=== PATIENT | female | born 1935 | race Hispanic/Latino ===

== ENCOUNTER 2017-07-02 15:42 | Inpatient (IN) | payer MEDICARE, OTHER ==
[2017-07-02 15:55] VITALS: BMI 47.7
[2017-07-02] MEDS ORDERED: Clindamycin 300 MG in Sodium Chloride 0.9% 50 ML IVPB STA (16:18)
--- NOTE | 2017-07-02 16:24 | ED PDOC ---
Arrival/HPI - General Chief Complaint: Shortness Of Breath Time Seen by Provider: 07/02/17 15:46 - History of Present Illness Narrative History of Present Illness (Text): 07/02/17 16:21 Patient is an 82 y/o F with AV replacement on coumadin, htn, ?chf on lasix, presenting with shortness of breath and leg swelling. Patient reports that she could not reach her PMD's office so came to ED. She reports that her L leg got red over the last 2 days PMD: Dr. Braswell Past Medical History - Infectious Disease Hx of Infectious Diseases: None - Reproductive Menopause: No - Past Medical History Past Medical History: Non-Contributing - Cardiac Hx Hypertension: Yes - HEENT Hx HEENT Disorder: No - Endocrine/Metabolic Hx Hypothyroidism: Yes - Integumentary Hx Dermatological Disorder: Yes Other/Comment: rash to left foot. - Gastrointestinal Other/Comment: IBS - Psychiatric Hx Substance Use: No - Surgical History Hx Cholecystectomy: Yes Hx Valve Replacement: Yes (Aortic) - Anesthesia Hx Anesthesia: Yes Hx Anesthesia Reactions: No Hx Malignant Hyperthermia: No Family/Social History Family/Social History: No Known Family HX Smoking Status: Never Smoked Hx Alcohol Use: No Hx Substance Use: No Allergies/Home Meds Allergies/Adverse Reactions: Allergies No Known Allergies Allergy (Verified 02/21/16 20:52) Home Medications: Home Meds Medication Instructions Recorded Confirmed Aspirin [Aspirin Chewable] 81 mg PO DAILY 06/23/15 07/02/17 Furosemide [Lasix] 40 mg PO DAILY 06/23/15 07/02/17 Levothyroxine [Synthroid] 0.112 mg PO DAILY 06/23/15 07/02/17 Metoprolol Tartrate [Lopressor] 50 mg PO DAILY 07/02/17 07/02/17 [place]-3 Fatty Acids/Fish Oil [Fish 1,000 mg PO DAILY 07/02/17 07/02/17 Oil 1,000 mg Capsule] Potassium Chloride [K-Dur 20 mEq 20 meq PO DAILY 07/02/17 07/02/17 ER Tab] Review of Systems - Physician Review All systems were reviewed & negative as marked: Yes - Review of Systems Constitutional: Fatigue Respiratory: SOB. absent: Cough, Sputum, Wheezing Cardiovascular: Edema. absent: Chest Pain, Palpitations, Calf Pain Gastrointestinal: absent: Abdominal Pain, Constipation, Diarrhea, Nausea, Vomiting Genitourinary Female: absent: Dysuria Musculoskeletal: Other (redness) Neurological: absent: Headache Physical Exam Vital Signs Temp Pulse Resp BP Pulse Ox 07/02/17 18:06 122/71 07/02/17 16:00 23 97 07/02/17 15:55 98.1 F 52 L 12 97 Temperature: Afebrile Blood Pressure: Normal Pulse: Regular Respiratory Rate: Normal Appearance: Positive for: Well-Appearing, Non-Toxic, Comfortable Pain Distress: None Mental Status: Positive for: Alert and Oriented X 3 - Systems Exam Head: Present: Atraumatic, Normocephalic Pupils: Present: PERRL Extroacular Muscles: Present: EOMI Conjunctiva: Present: Normal Mouth: Present: Moist Mucous Membranes Neck: Present: Normal Range of Motion Respiratory/Chest: Present: Clear to Auscultation, Good Air Exchange. No: Respiratory Distress Cardiovascular: Present: Irregular Rhythm Abdomen: No: Tenderness, Distention Back: Present: Normal Inspection Upper Extremity: Present: Normal Inspection Lower Extremity: Present: Other (redness and erythema to LLE extending up towards the knee. 2+pitting edema b/l) Neurological: Present: GCS=15, CN II-XII Intact Psychiatric: Present: Alert, Oriented x 3 Medical Decision Making ED Course and Treatment: 07/02/17 16:26 Patient has edema and L leg cellulitis. Cellulitis is extensive and limb threatening. Will need IV antibiotics --ekg --cxray --labs --iv antibiotics EKG shows irregularly irregular rhythm at 54bpm with LAD and RBBB. ?new onset afib 07/02/17 16:31 07/02/17 17:20 BNP elevated and cxray shows "Stable cardiomegaly. No pulmonary vascular derangement. No acute infiltrate although linear atelectasis is seen in the right base." Patient has lower extremity edema. Lasix and aspirin ordered for chf. Last echo in 2016 with unknown results. Will need admission for chf requiring IV lasix and cardiac evaluation due to worsening sob and dyspnea, new onset afib (already on coumadin) and limb threatening cellulitis with elevated wbc requiring IV antibiotics - Lab Interpretations Lab Results: 07/02/17 16:45 07/02/17 16:45 Lab Results 07/02/17 16:45: Sodium 142, Potassium 4.6, Chloride 108 H, Carbon Dioxide 25, Anion Gap 13, BUN 39 H, Creatinine 1.4 H, Est GFR ( Amer) 43, Est GFR ( Non-Af Amer) 36, Random Glucose 181 H, Calcium 9.6, Phosphorus 4.0, Magnesium 2.1, Total Bilirubin 2.8 H, AST 81 H, ALT 143 H, Alkaline Phosphatase 111, Total Creatine Kinase 38, Troponin I 0.06 D, NT-Pro-B Natriuret Pep 89153 H, Total Protein 5.7 L, Albumin 3.2, Globulin 2.5, Albumin/Globulin Ratio 1.3 07/02/17 16:45: PT 17.1 H, INR 1.55 H, APTT 24.3 L 07/02/17 16:45: WBC 16.6 H D, RBC 3.63, Hgb 11.9 L, Hct 37.6, MCV 103.6, MCH 32.8, MCHC 31.6, RDW 17.1 H, Plt Count 97 L, MPV 11.9 H, Gran % 87.4 H, Lymph % (Auto) 5.5 L, [place] % (Auto) 6.9 H, Eos % (Auto) 0.1 L, Baso % (Auto) 0.1, Gran # 14.46 H, Lymph # 0.9 L, [place] # 1.1 H, Eos # 0.0, Baso # 0.02 - RAD Interpretation Radiology Orders: 07/02/17 16:14 CHEST PORTABLE [RAD] Stat - Medication Orders Current Medication Orders: Discontinued Medications Aspirin (Aspirin Chewable) 324 mg PO STAT STA Stop: 07/02/17 17:18 Last Admin: 07/02/17 18:06 Dose: 324 mg Furosemide (Lasix) 40 mg IVP STAT STA Stop: 07/02/17 17:18 Last Admin: 07/02/17 18:06 Dose: 40 mg MAR Blood Pressure Document 07/02/17 18:06 (Rec: 07/02/17 18:06 [id number]) Blood Pressure Blood Pressure (100/60-150/90) 122/71 IVP Administration Document 07/02/17 18:06 (Rec: 07/02/17 18:06 [id number]) Charges for Administration # of IVP Administrations 1 Clindamycin Phosphate 300 mg/ (Sodium Chloride) 52 mls @ 104 mls/hr IVPB STAT STA PRN Reason: Protocol Stop: 07/02/17 16:47 Last Admin: 07/02/17 16:20 Dose: 104 mls/hr eMAR Start Stop Document 07/02/17 16:20 RG (Rec: 07/02/17 17:58 [id number]) Intravenous Solution Start Date 07/02/17 Start Time 16:20 End Date 07/02/17 End time 16:50 Total Infusion Time 30 Disposition/Present on Arrival - Present on Arrival Any Indicators Present on Arrival: No History of DVT/PE: No History of Uncontrolled Diabetes: No Urinary Catheter: No History of Decub. Ulcer: No History Surgical Site Infection Following: None - Disposition Have Diagnosis and Disposition been Completed?: Yes Diagnosis: Cellulitis, Shortness of breath, Atrial fibrillation, Congestive heart failure Disposition: HOSPITALIZED Disposition Time: 16:28 Patient Plan: Admission Patient Problems: Current Active Problems Problem Status Onset Atrial fibrillation Acute Cellulitis Acute Congestive heart failure Acute Shortness of breath Acute Condition: FAIR
[2017-07-02 16:52] LABS: BASO # 0.02 K/mm3 (0.0-2.0); BASO % 0.1 % (0.0-3.0); EOS % 0.1 % (1.5-5.0); GRAN # 14.46 (1.4-6.5); GRAN % 87.4 % (50.0-68.0); HEMATOCRIT 37.6 % (36.0-48.0); LYMPH # 0.9 (1.2-3.4); LYMPH % 5.5 % (22.0-35.0); MEAN CELL VOLUME 103.6 fl (80.0-105.0); MEAN CORPUSCULAR HEMOGLOBIN 32.8 pg (25.0-35.0); MEAN CORPUSCULAR HGB CONC 31.6 g/dl (31.0-37.0); MEAN PLATELET VOLUME 11.9 fl (7.0-11.0); MONO # 1.1 (0.1-0.6); MONO % 6.9 % (1.0-6.0); RED CELL DISTRIBUTION WIDTH 17.1 % (11.5-14.5); WHITE BLOOD COUNT 16.6 10^3/ul (4.5-11.0)
[2017-07-02 17:05] LABS: BILIRUBIN,TOTAL 2.8 mg/dL (0.2-1.3); CALCIUM 9.6 mg/dL (8.4-10.5); MAGNESIUM 2.1 mg/dL (1.7-2.2); POTASSIUM 4.6 mmol/L (3.6-5.0); TOTAL PROTEIN 5.7 g/dL (5.8-8.3)
[2017-07-02 17:09] LABS: INR 1.55 (0.93-1.08); PARTIAL THROMBOPLASTIN TIME 24.3 Seconds (25.1-36.5)
[2017-07-02 17:16] LABS: ALB/GLOB RATIO 1.3 (1.1-1.8)
[2017-07-02 17:17] LABS: TROPONIN I 0.06 ng/mL
--- NOTE | 2017-07-02 17:25 | RAD ---
HISTORY: shortness of breath COMPARISON: Chest radiographs 07/27/2016. FINDINGS: LUNGS: No definite infiltrate appreciated bilaterally although linear atelectasis or fibrosis seen at the right base. PLEURA: No significant pleural effusion identified, no pneumothorax apparent. CARDIOVASCULAR: Cardiomegaly is apparent once again without pulmonary vascular derangement. Sternotomy wires are again noted. Prosthetic cardiac valve again evident as well. OSSEOUS STRUCTURES: No significant abnormalities. VISUALIZED UPPER ABDOMEN: Normal. OTHER FINDINGS: None. IMPRESSION: Stable cardiomegaly. No pulmonary vascular derangement. No acute infiltrate although linear atelectasis is seen in the right base.
[2017-07-03 07:19] LABS: HEMATOCRIT 36.3 % (36.0-48.0); MEAN CELL VOLUME 103.7 fl (80.0-105.0); MEAN CORPUSCULAR HGB CONC 30.9 g/dl (31.0-37.0); MEAN PLATELET VOLUME 12.2 fl (7.0-11.0); RED CELL DISTRIBUTION WIDTH 17.1 % (11.5-14.5); WHITE BLOOD COUNT 11.5 10^3/ul (4.5-11.0)
--- NOTE | 2017-07-03 07:36 | CP.PCM.HP ---
<Marian Lucas - Last Filed: 07/03/17 09:53> History of Present Illness - History of Present Illness History of Present Illness: PGY-[address] Hamilton Admission: Dyspnea Cellulitis Ms Day, 82 F, with PMH HTN, Aortic valve replacement, a-fib NOT ON anticoagulant, htn, ?chf on lasix, presenting with shortness of breath and leg swelling. Pt states that she became more SOB 1 month ago, requiring an inhaler 4 times a day. Then 2 days ago, she felt pain in L leg while walking, and nticed that her leg has gotten red. Patient reports that she could not reach her PMD's office so came to ED. At baseline, pt slept in a recliner. She ambulates from bedroom to bathroom with increased SOB. (+) animal contact - dog. Denies change of meds, dine out, or high salt food Denies animal bites, sick contact, trauma, fall, hiking. Last echo in 2015 with unknown results. Denies F/C, CP, N/V/C/D, dysuria. 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 All NKDA Home med ASA 81, Lopressor 50 QD Lasix 40, K-Dur 20 Er Synthroid 0.112 [place] 3 Inhaler Miralax daily PMD: Dr. Braswell Present on Admission - Present on Admission Any Indicators Present on Admission: No Past Patient History - Infectious Disease Hx of Infectious Diseases: None - Past Social History Smoking Status: Never Smoked - CARDIAC Hx Cardia Arrhythmia: Yes Hx Congestive Heart Failure: Yes - PULMONARY Hx Respiratory Disorders: No - NEUROLOGICAL Hx Neurological Disorder: No - HEENT Hx HEENT Problems: No - RENAL Hx Chronic Kidney Disease: No - ENDOCRINE/METABOLIC Hx Endocrine Disorders: No - HEMATOLOGICAL/ONCOLOGICAL Hx Blood Disorders: No - INTEGUMENTARY Hx Dermatological Problems: Yes - MUSCULOSKELETAL/RHEUMATOLOGICAL Hx Musculoskeletal Disorders: No Hx Falls: No - GASTROINTESTINAL Hx Gastrointestinal Disorders: No - GENITOURINARY/GYNECOLOGICAL Hx Genitourinary Disorders: No - PSYCHIATRIC Hx Psychophysiologic Disorder: No Hx Substance Use: No - SURGICAL HISTORY Hx Valve Replacement: Yes - ANESTHESIA Hx Anesthesia: Yes Hx Anesthesia Reactions: No Hx Malignant Hyperthermia: No Meds Allergies/Adverse Reactions: Allergies Allergy/AdvReac Type Severity Reaction Status Date / Time No Known Allergies Allergy Verified 02/21/16 20:52 Physical Exam - Constitutional Appears: No Acute Distress - Head Exam Head Exam: ATRAUMATIC, NORMAL INSPECTION, NORMOCEPHALIC - Eye Exam Eye Exam: EOMI, Normal appearance, PERRL. absent: Scleral icterus Pupil Exam: NORMAL ACCOMODATION - ENT Exam ENT Exam: Mucous Membranes Moist - Neck Exam Additional comments: No JVD - Respiratory Exam Respiratory Exam: Clear to Auscultation Bilateral, Rales. absent: Rhonchi, Wheezes - Cardiovascular Exam Cardiovascular Exam: REGULAR RHYTHM, +S1, +S2, Systolic Murmur - GI/Abdominal Exam GI & Abdominal Exam: Normal Bowel Sounds, Soft. absent: Distended, Firm, Rigid , Tenderness - Extremities Exam Extremities exam: Positive for: pedal edema. Negative for: calf tenderness, tenderness - Back Exam Back exam: absent: CVA tenderness (L), CVA tenderness (R) - Neurological Exam Neurological exam: Alert, Oriented x3 - Psychiatric Exam Psychiatric exam: Normal Affect, Normal Mood - Skin Skin Exam: Dry, Rash (L Leg/ankle), Warm Results - Vital Signs Recent Vital Signs: Last Vital Signs Temp 97 F L 07/03/17 06:00 Pulse 56 L 07/03/17 06:00 Resp 19 07/03/17 06:00 BP 111/54 L 07/03/17 06:00 Pulse Ox 97 07/03/17 06:00 - Labs Result Diagrams: 07/03/17 06:00 07/03/17 07:00 Labs: Laboratory Results - last 24 hr 07/03/17 06:00 WBC 11.5 H D RBC 3.50 Hgb 11.2 L Hct 36.3 MCV 103.7 MCH 32.0 MCHC 30.9 L RDW 17.1 H Plt Count 85 L MPV 12.2 H Assessment & Plan - Assessment and Plan (Free Text) Plan: Ms Day, 82 F, with PMH HTN, Aortic valve replacement, a-fib NOT ON anticoagulant, htn, ?chf on lasix, presenting with shortness of breath, b/l leg swelling and rash of L leg, likely cellulitis Soft tissue infection R/O osteomyelitis, R/O DVT Leukocytosis 16.6 - ID consult - CRP - Venous Duplex LE b/l - blood culture A-fib - Eliquis 5 BID CHF, systolic, exacerbation - O2 as needed - HOB 30 degree - A1C, TSH - Echocardiogam - Lasix 40 IV daily bilirubinemia with AST/ALT - Asymptomatic - consider abd u/s HTN, Risk CAD - ASA, Lopressor 25 bid Constipation - miralax Hypothyroidism - consider check TSH Discharge planning - PT Consult ID = Dr Hunter Card = Dr Toro FEN = HHD s/r/d/w <Jose Eduardo Hamilton S - Last Filed: 07/03/17 15:28> Results - Vital Signs Recent Vital Signs: Last Vital Signs Temp 96.4 F L 07/03/17 12:00 Pulse 54 L 07/03/17 12:00 Resp 21 07/03/17 12:00 BP 107/68 07/03/17 12:00 Pulse Ox 97 07/03/17 06:00 - Labs Result Diagrams: 07/03/17 06:00 07/03/17 07:00 Labs: Laboratory Results - last 24 hr 07/03/17 07/03/17 07/03/17 06:00 07:00 07:00 WBC 11.5 H D RBC 3.50 Hgb 11.2 L Hct 36.3 MCV 103.7 MCH 32.0 MCHC 30.9 L RDW 17.1 H Plt Count 85 L MPV 12.2 H Sodium 142 Potassium 4.4 Chloride 111 H Carbon Dioxide 24 Anion Gap 11 BUN 43 H Creatinine 1.3 H Est GFR ( Amer) 47 Est GFR (Non-Af Amer) 39 Random Glucose 164 H Hemoglobin A1c Calcium 9.5 Phosphorus 4.1 Magnesium 2.2 Total Bilirubin 2.1 H AST 77 H ALT 143 H Alkaline Phosphatase 112 Troponin I 0.04 D C-React Prot High Sens Total Protein 5.3 L Albumin 2.8 L Globulin 2.4 Albumin/Globulin Ratio 1.2 Thyroxine (T4) TSH 3rd Generation 07/03/17 07/03/17 07:00 08:00 WBC RBC Hgb Hct MCV MCH MCHC RDW Plt Count MPV Sodium Potassium Chloride Carbon Dioxide Anion Gap BUN Creatinine Est GFR ( Amer) Est GFR (Non-Af Amer) Random Glucose Hemoglobin A1c 6.5 Calcium Phosphorus Magnesium Total Bilirubin AST ALT Alkaline Phosphatase Troponin I C-React Prot High Sens > 15.00 H Total Protein Albumin Globulin Albumin/Globulin Ratio Thyroxine (T4) 7.0 TSH 3rd Generation 1.05 Assessment & Plan - Assessment and Plan (Free Text) Plan: Pt was seen and examined. Labs have been reviewed. The not of the claim review medical director has been reviewed. Pt will need IV Abx and will need IV lasix. Cardiology evaluation. Pt with A fib on Eliquis.
[2017-07-03 08:29] LABS: BILIRUBIN,TOTAL 2.1 mg/dL (0.2-1.3); CALCIUM 9.5 mg/dL (8.4-10.5); MAGNESIUM 2.2 mg/dL (1.7-2.2); PHOSPHOROUS 4.1 mg/dL (2.5-4.5); POTASSIUM 4.4 mmol/L (3.6-5.0); TOTAL PROTEIN 5.3 g/dL (5.8-8.3)
[2017-07-03 08:31] LABS: ALB/GLOB RATIO 1.2 (1.1-1.8)
[2017-07-03] MEDS: POLYETHYLENE GLYCOL 3350 17 GM/Dose PACKET PO SCH (09:26)
[2017-07-03] MEDS: Levothyroxine 112 MCG TAB PO SCH (09:27)
[2017-07-03 09:57] LABS: THYROID STIMULATING HORMONE 1.05 mIU/mL (0.46-4.68)
--- NOTE | 2017-07-03 10:35 | CON ---
DATE: 07/03/2017 INDICATIONS: Shortness of breath, edema, cellulitis. HISTORY OF PRESENT ILLNESS: This is an 82-year-old woman with an aortic valve replacement known to me, admitted with several days of shortness of breath, dyspnea on exertion and lower extremity swelling and redness of right lower extremity. She came to the emergency room yesterday, she was admitted. She is found to be in atrial fibrillation with a moderate ventricular response. She is admitted to telemetry. This morning she is comfortable, lying in bed. There is no shortness of breath presently. There was not much edema. Her right leg is cellulitic in appearance. There is no chest pain, orthopnea, PND, syncope, presyncope, lightheadedness, dizziness, vertigo, palpitation, fever, chills, cough, sputum production, hemoptysis, abdominal pain, nausea, vomiting, diarrhea, constipation, or melena. PAST MEDICAL HISTORY: Notable for remote aortic valve replacement, hypertension, obesity, sedentary lifestyle, hypothyroidism, gallbladder surgery, degenerative arthritis. I am not sure if she has had atrial fibrillation in the past. I will review records on this. I believe that it is relatively new. She has not been on anticoagulation. There is no history of rheumatic fever, myocardial infarction, stroke, TIA, diabetes or gout. MEDICATIONS AT THE TIME OF ADMISSION: Include aspirin, Lasix, levothyroxine, metoprolol, potassium chloride, omega-3 fish oil. ALLERGIES: THERE ARE NO MEDICATION ALLERGIES REPORTED. SOCIAL HISTORY: She lives at home. She is not very ambulatory. She does not smoke cigarettes. She does not drink alcohol significantly. FAMILY HISTORY: Noncontributory. REVIEW OF SYSTEMS: A 10-point review of systems is otherwise unremarkable except as noted above. PHYSICAL EXAMINATION: GENERAL: She is an elderly woman, in no acute distress, lying in bed on telemetry. She has an atrial fibrillation with moderate ventricular response. VITAL SIGNS: Pulse is 58 to 49 beats per minute. She is afebrile. Blood pressure 111/54, respirations 19, O2 sat 97-98% on nasal cannula. HEENT: Reveals no neck vein distention, thyromegaly, or carotid bruits. Mucous membranes moist. Conjunctivae pink. NECK: Supple. CHEST: Lung vargas few scattered rhonchi. HEART: Revealed an irregular rhythm. There is a systolic ejection murmur heard along the left sternal border and in aortic space. The PMI is not palpable. ABDOMEN: Obese, soft. Bowel sounds are present. No mass, organomegaly, tenderness, rebound, guarding, CVA tenderness or palpable aortic aneurysm detected. EXTREMITIES: Revealed mild edema, erythema involving the lower half of her right leg. There is no calf tenderness. NEUROLOGIC: She is awake, alert, and oriented. PSYCHIATRIC: Normal as to mood and affect. SKIN: Warm and dry. No rashes or cellulitis. LABORATORY DATA: White count 16,600, repeat 11,500, hemoglobin 11.2, platelet count low at 85,000. PT 17.1, INR 1.55, PTT 24.3. Electrolytes, BUN, creatinine noted. Creatinine 1.4, blood sugar 181, magnesium 2.1. LFTs are mildly abnormal with AST of 81, ALT of 141, bilirubin of 2.8, alkaline phosphatase 111. CK 38. Troponin 0.06 and 0.04. BNP 14,400. EKG demonstrates atrial fibrillation, right bundle-branch block, left anterior hemiblock, nonspecific ST-wave changes. The chest x-ray reveals a portable study. There is stable cardiomegaly. No evidence of congestive heart failure or infiltrate. IMPRESSION: Kaycee Day is an 82-year-old woman, admitted with dyspnea, edema, cellulitis, atrial fibrillation, status post aortic valve replacement remotely. She is on telemetry. She has been cultured. She is getting antibiotics. I will get lower extremity venous Doppler. I would check thyroid function test. Her platelet count is low, which should be evaluated as well. Tentatively, I will start her on Eliquis 5 mg b.i.d. We will check stool for occult blood. Monitor Is and Os. She got dose of IV Lasix. We will continue p.o. Lasix. She can be out of bed. She is having an ID evaluation. We will continue aspirin, metoprolol, which I will reduce to 25 mg b.i.d. and Synthroid. I will follow along with you. I will make additional recommendations based on a clinical course. I will review office records as well. An echocardiogram has been ordered. Vazquez Toro MD [facility]
--- NOTE | 2017-07-03 11:38 | CARD ---
APPROVED REPORT EKG Measurement Heart [id number] <Conclusion> A. Fib., new LAHB RBBB PRWP STTW changes
--- NOTE | 2017-07-03 11:40 | CARD ---
APPROVED REPORT EKG Measurement Heart [id number] <Conclusion> AF RBBB LAHB PRWP STTW changes No change
[2017-07-03] MEDS: Ceftaroline 600 MG in Sodium Chloride 0.9% 100 ML IVPB SCH (15:36)
--- NOTE | 2017-07-03 16:15 | US ---
HISTORY: Leg pain and swelling. Evaluate for DVT PHYSICIAN(S): Lev Billingsley MD. TECHNIQUE: Duplex sonography and color-flow Doppler with graded compression were used to evaluate the deep venous systems of both lower extremities. The exam is limited by edema and body habitus. The tibial veins are not well seen FINDINGS: The visualized deep venous systems of both lower extremities are sonographically normal and compressible. Normal wave forms and augmentation are seen. There is no sonographic evidence for deep venous thrombosis in the visualized segments of both lower extremities. IMPRESSION: No sonographic evidence for deep venous thrombosis in the visualized segments of both lower extremities.
[2017-07-03] MEDS ORDERED: Alum-Mag Hydrox-Simethicone Susp (30 mL) PO ONE (23:18)
--- NOTE | 2017-07-03 23:46 | CP.PCM.PN ---
Subjective - Date & Time of Evaluation Date of Evaluation: 07/03/17 Time of Evaluation: 23:50 - Subjective Subjective: Pt seen for her c/o abdominal pain which started a few mins before I was called. Pt denies any c/o chest pain, SOB,nausea,vomiting or palpitations. She states her abdominal pain is located in the upper abdomen(points to the epigastric region).It does not radiate and is not associated with any other symptoms.It is described as a dull pain.On a scale of 1 to 10 it is a 9. Pt was admitted with Dx of CHF and AFib. Her VS are stable. PMH:HTN,AV replacement,Afib,Hypothyroidism,DJD of spine. Objective - Vital Signs/Intake and Output Vital Signs (last 24 hours): Temp Pulse Resp BP Pulse Ox 97 F L 51 L 20 120/78 97 07/03/17 18:00 07/03/17 18:00 07/03/17 18:00 07/03/17 18:00 07/03/17 06:00 - Medications Medications: Current Medications Apixaban (Eliquis) 5 mg PO BID JILLIAN PRN Reason: Protocol Last Admin: 07/03/17 18:06 Dose: 5 mg Aspirin (Aspirin Chewable) 81 mg PO DAILY [facility] Last Admin: 07/03/17 09:26 Dose: 81 mg Furosemide (Lasix) 40 mg IVP DAILY [facility] Last Admin: 07/03/17 09:40 Dose: Not Given Ceftaroline Fosamil 600 mg/ (Sodium Chloride) 100 mls @ 100 mls/hr IVPB Q12 JILLIAN PRN Reason: Protocol Stop: 07/12/17 13:13 Last Admin: 07/03/17 15:36 Dose: 100 mls/hr Levothyroxine Sodium (Synthroid) 112 mcg PO DAILY JILLIAN Last Admin: 07/03/17 09:27 Dose: 112 mcg Metoprolol Tartrate (Lopressor) 25 mg PO BID [facility] Last Admin: 07/03/17 17:59 Dose: Not Given Polyethylene Glycol (Miralax) 17 gm PO DAILY [facility] Last Admin: 07/03/17 09:26 Dose: 17 gm - Labs Labs: 07/03/17 06:00 07/03/17 07:00 PT 17.1 SECONDS (9.4-12.5) H 07/02/17 16:45 INR 1.55 (0.93-1.08) H 07/02/17 16:45 APTT 24.3 Seconds (25.1-36.5) L 07/02/17 16:45 - Constitutional Appears: No Acute Distress - Head Exam Head Exam: ATRAUMATIC, NORMAL INSPECTION, NORMOCEPHALIC - Eye Exam Eye Exam: PERRL - ENT Exam ENT Exam: Mucous Membranes Moist - Neck Exam Neck Exam: Normal Inspection - Respiratory Exam Respiratory Exam: Clear to Ausculation Bilateral, NORMAL BREATHING PATTERN - Cardiovascular Exam Cardiovascular Exam: Irregular Rhythm - GI/Abdominal Exam GI & Abdominal Exam: Soft, Tenderness (noted in the epigastric region), Normal Bowel Sounds. absent: Distended, Guarding, Rebound - Extremities Exam Extremities Exam: absent: Calf Tenderness Additional comments: There is erythema and tenderness of the L lower leg.Also noted is edema of the L foot. - Neurological Exam Neurological Exam: Alert, Awake, Oriented x3 - Psychiatric Exam Psychiatric exam: Normal Affect - Skin Skin Exam: Dry, Warm Additional comments: Ecchymotic areas noted in the region of the R flank. Skin changes of L lower leg as noted. Assessment and Plan - Assessment and Plan (Free Text) Assessment: Epigastric pain Plan: EKG was done stat.It showed Afib rate of 62/min.RBBB is noted as before.Minimal increase in T wave inversion is noted in leads V2 and V3. Cardiac enzymes ordered. Protonix and Maalox ordered.
[2017-07-04 00:33] LABS: TROPONIN I 0.04 ng/mL
--- NOTE | 2017-07-04 00:34 | CON ---
DATE: 07/03/2017 The patient is in bed. CHIEF COMPLAINT: Left leg erythema times several days. HISTORY OF PRESENT ILLNESS: This is an 82-year-old morbidly obese female with BMI of 47. PAST MEDICAL HISTORY: Significant for congestive heart failure, arrhythmia, hypertension, hyperlipidemia, history of cholecystectomy and valve replacement, who was admitted with diagnosis of new onset of atrial fibrillation, congestive heart failure through the Emergency Room, was seen by Dr. Umu Tate. She voiced that the patient has an aortic valve replacement, on Coumadin, hypertension, congestive heart failure, on Lasix, admitted with shortness of breath and bilateral lower extremity edema and the patient had also with a history of hypothyroidism and past medical history significant for congestive heart failure and hypertension, arrhythmia, hyperlipidemia, hypothyroidism. PAST SURGICAL HISTORY: Significant for cholecystectomy and aortic valve replacement. MEDICATIONS: Include the patient to be on aspirin, furosemide, Synthroid, metoprolol, and Coumadin. ALLERGIES: THE PATIENT HAS NO KNOWN ALLERGIES. PHYSICAL EXAMINATION VITAL SIGNS: The patient's temperature of 98, pulse of 52, respiratory rate of 23, blood pressure is noted and to be 111/50 and pulse oximetry is 97%. HEENT: Unremarkable. NECK: Supple. LUNGS: Decreased breath sounds. HEART: Normal S1, S2. ABDOMEN: Soft, nontender. EXTREMITIES: Examination of left leg reveals significant erythema of the left leg and foot and with edema is improved. No break in his skin since erythema and no discharge. LABORATORY DATA: Reveals a white count of 16,000, hemoglobin of 11, platelets of 97 and the platelets are new and in past she has had normal platelets. Chemistries reveals a BUN of 39, creatinine of 1.4 and in the past she has had creatinine of 0.9 and 1.0. C-reactive protein is 315 and BNP is over 14,000. Review of orders reveals the patient to have blood cultures are pending and the patient was given a dose of clindamycin. ASSESSMENT AND PLAN: This is an 82-year-old female with BMI of 47 and congestive heart failure with morbid obesity, BMI of 47, congestive heart failure, arrhythmia, hypertension, hyperlipidemia, hypothyroidism, admitted with dyspnea and leukocytosis, left foot the erythema with acute kidney injury and new thrombocytopenia. 1. Severe sepsis with left leg cellulitis with acute kidney injury. Creatinine is changed from 0.9-1.4 and the patient is with thrombocytopenia and unable to use the linezolid. We will discontinue the clindamycin. We will use ceftaroline 600 mg IV q. 12 hours and follow the patient clinically and check on the blood cultures and ultrasound, should have vascular workup and arterial Dopplers and venous Dopplers and echocardiogram and we will follow closely with you. She is recommended Podiatric consultation. Nael Hunter MD
[2017-07-04 07:21] LABS: BASO # 0.03 K/mm3 (0.0-2.0); BASO % 0.3 % (0.0-3.0); EOS # 0.1 (0.0-0.7); EOS % 1.1 % (1.5-5.0); GRAN # 8.43 (1.4-6.5); GRAN % 82.8 % (50.0-68.0); HEMATOCRIT 36.6 % (36.0-48.0); LYMPH % 9.3 % (22.0-35.0); MEAN CELL VOLUME 103.1 fl (80.0-105.0); MEAN CORPUSCULAR HEMOGLOBIN 31.8 pg (25.0-35.0); MEAN CORPUSCULAR HGB CONC 30.9 g/dl (31.0-37.0); MEAN PLATELET VOLUME 12.5 fl (7.0-11.0); MONO # 0.7 (0.1-0.6); MONO % 6.5 % (1.0-6.0); RED CELL DISTRIBUTION WIDTH 16.8 % (11.5-14.5); WHITE BLOOD COUNT 10.2 10^3/ul (4.5-11.0)
[2017-07-04 07:32] LABS: INR 2.17 (0.93-1.08)
[2017-07-04 07:33] LABS: TROPONIN I 0.04 ng/mL
[2017-07-04 07:39] LABS: FREE T4 1.53 ng/dL (0.78-2.19)
[2017-07-04 07:53] LABS: THYROID STIMULATING HORMONE 1.21 mIU/mL (0.46-4.68)
[2017-07-04] MEDS: POLYETHYLENE GLYCOL 3350 17 GM/Dose PACKET PO SCH (09:39)
[2017-07-04] MEDS: Levothyroxine 112 MCG TAB PO SCH (09:40)
--- NOTE | 2017-07-04 10:20 | CARD ---
APPROVED REPORT EKG Measurement Heart [id number] <Conclusion> Undetermined rhythm Left axis deviation Right bundle branch block Abnormal ECG
[2017-07-04] MEDS: Ceftaroline 600 MG in Sodium Chloride 0.9% 100 ML IVPB SCH ×2 (11:17→22:34)
--- NOTE | 2017-07-04 11:56 | CARD ---
APPROVED REPORT EXAM: Two-dimensional and M-mode echocardiogram with Doppler and color Doppler. INDICATION AVR/EDEMA/SOB 2D DIMENSIONS Left Atrium (2D)5.2 (1.6-4.0cm)IVSd1.4 (0.7-1.1cm) LVDd4.6 (3.9-5.9cm)PWd1.4 (0.7-1.1cm) LVDs2.8 (2.5-4.0cm)FS (%) 37.7 % LVEF (%)67.9 (>50%) M-Mode DIMENSIONS Aortic Root2.80 (2.2-3.7cm) Aortic Valve AoV Peak Jjxcpzpb884.0cm/sAoV QYT094.0cmAO Peak GR.99mmHg AO Mean GR.55mmHg Mitral Valve MV MIW03iuJ/A ratio0.0MVA (PHT)2.44cm2 TDI E/Lateral E'0.0E/Medial E'0.0 Pulmonary Valve PV Peak Gsbwqpig60.5cm/sPV Peak Grad.4mmHg Tricuspid Valve TR Peak Vkemmcyg088tu/sRAP [id number] Peak Gr.78mmHg [id number] LEFT VENTRICLE The left ventricle is normal size. There is mild concentric left ventricular hypertrophy. The left ventricular function is normal. The left ventricular ejection fraction is within the normal range. There is a flattened septum consistent with right ventricle pressure overload. RIGHT VENTRICLE The right ventricle is mildly dilated. ATRIA The left atrium is severely dilated. The right atrium is severely dilated. AORTIC VALVE There is severe valvular aortic stenosis. There are abnormal prosthetic aortic valve gradients. Bioprosthesis leaflets are thickened and motion is restricted. MITRAL VALVE Mitral annular calcification is moderate. The mitral valve is moderately thickened. Mitral regurgitation is severe. The mitral regurgitant jet is eccentrically directed. TRICUSPID VALVE The tricuspid valve leaflets are thickened , but open well. There is severe tricuspid regurgitation. GREAT VESSELS The aortic root is normal in size. The IVC is normal in size and collapses >50% with inspiration. PERICARDIAL EFFUSION There is no pleural effusion. There is no pericardial effusion. <Conclusion> Severe biatrila enlargement. Mild concentric LVH. Normal LV systolic function. Septal dyskineisis consistent with RV pressure overload. 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 Eccentric severe MR noted. Severe TR.
[2017-07-04] MEDS: Levalbuterol 0.63 MG/3 ML Inhal Soln UD IH SCH ×2 (13:48→20:53)
--- NOTE | 2017-07-04 14:10 | PN ---
DATE: 07/04/2017 SUBJECTIVE: The patient is seen sitting in a chair on telemetry. She is currently comfortable. Her left arm is wrapped in a dressing. She remains in atrial fibrillation. She states that her dyspnea has improved. CURRENT MEDICATIONS: Include aspirin, ceftaroline, Eliquis 5 mg b.i.d., Lasix 40 mg daily, metoprolol 25 g b.i.d., Protonix, Synthroid, and Xopenex. OBJECTIVE: GENERAL: She is an elderly woman, appears comfortable at the present time. VITAL SIGNS: Her blood pressure is 120/60 with a pulse of 56 and atrial fibrillation, respirations are 16. She is afebrile. HEENT: No JVD. CHEST: Bilateral scattered rhonchi. HEART: Systolic murmur is noted at the bases as well as the apex. ABDOMEN: Soft, nontender, protuberant with normoactive bowel sounds. EXTREMITIES: Left arm is wrapped. Mild cellulitic changes in both lower extremities are noted. DIAGNOSTIC DATA: White count is 10.2, hemoglobin and hematocrit 11.3 and 36.6 with platelet count of 89,000. Troponin is negative. LDH is 1076. Echocardiogram is reviewed and shows evidence of aortic stenosis of her bioprosthetic valve. This appears to be severe. LV systolic function appears normal. There is biatrial enlargement with severe mitral regurgitation and severe tricuspid regurgitation. IMPRESSION: 1. Cellulitis, currently receiving antibiotic therapy. 2. 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 3. Severe mitral and tricuspid regurgitation. 4. Recent onset atrial fibrillation. RECOMMENDATIONS: Her current medications will be continued. Once her cellulitis has resolved, discussion will be had with her regarding consideration for any intervention on her stenotic prosthetic valve, possible TAVR procedure can be considered. Resumption of her home bronchodilator therapy is advisable. We will continue to follow and make further recommendations as appropriate. Rajinder Smith MD
[2017-07-04 14:34] LABS: TROPONIN I 0.03 ng/mL
--- NOTE | 2017-07-05 00:27 | PN ---
DATE: 07/04/2017 SUBJECTIVE: Patient is in bed, no acute distress, seen early this morning in room 375. She states she is feeling much better. Her leg is less painful and her shortness of breath is improved. She is much more comfortable. PHYSICAL EXAMINATION: VITAL SIGNS: Temperature is 96.4, blood pressure is 92, heart rate of 63, and respiratory rate of 18. HEENT: Unremarkable. NECK: Supple. LUNGS: Decreased breath sounds. HEART: Normal S1, S2. ABDOMEN: Soft. LABORATORY DATA: Reveals the white count is down to 10,000 and hemoglobin of 11. Coagulation is noted. Chemistries revealed the patient's C-reactive protein is greater than 50, LDH is noted, and BUN of 43 and creatinine of 1.3. Microbiology reveals in the blood cultures, there are no growth. Review of orders revealed the patient to be on Teflaro. ASSESSMENT AND PLAN: This is an 82-year-old female, seen early this morning in room 375, bed 2, with morbid obesity, body mass index of 47, congestive heart failure and arrhythmia, hypertension, hyperlipidemia, hypothyroidism, admitted with dyspnea, leukocytosis, left foot erythema, and acute kidney injury. 1. Severe sepsis with left leg cellulitis and acute kidney injury, which appears to be much improved. Currently, on Teflaro, day number 2. Follow the culture results and clinical response of the patient's leg, which appears to be much improved in this patient with a history of status post aortic valve replacement with evidence of prosthetic stenosis and severe mitral and tricuspid regurgitation and a recent onset of atrial fibrillation. We will follow closely with you. Nael Hunter MD
[2017-07-05] MEDS: Levalbuterol 0.63 MG/3 ML Inhal Soln UD IH SCH ×3 (01:16→14:36)
--- NOTE | 2017-07-05 08:28 | PN ---
DATE: 07/04/2017 SUBJECTIVE: The patient is an 82-year-old, seen and examined, and sitting in chair. The patient is morbidly obese with significant bilateral leg edema and left leg significant erythema. On examination, she is not in any distress. Eating and tolerating. No nausea or vomiting. No diarrhea. On monitor, she is still in AFib. She states her shortness of breath has significantly improved. PHYSICAL EXAMINATION: GENERAL: She is awake, alert, oriented, and communicative. VITAL SIGNS: She is afebrile, pulse 65, respirations 18, and blood pressure 121/60. LUNGS: Bilateral fair airflow, decreased at bases. HEART: S1 and S2 audible. ABDOMEN: Soft, obese, and nontender. No rebound. No guarding. NEUROLOGIC: She is awake, alert, oriented, and communicative. LABORATORY DATA: WBC is 10.2, hemoglobin is 11, hematocrit is 36, and platelet of 89. PT 24.3 and INR 2.17. Chemistry; her LDH is 885. CPK is 34. She has leg Doppler done that has no sonographic evidence of DVT. Echocardiogram shows severe biatrial enlargement, mild concentric LVH, normal LV function, septal dyskinesia consistent with right ventricular pressure overload, severe MR, and severe TR. ASSESSMENT: 1. Diastolic dysfunction. 2. Severe tricuspid regurgitation. 3. Severe mitral regurgitation. 4. Morbid obesity. 5. Left leg cellulitis. 6. Leukocytosis, improving. 7. Chronic atrial fibrillation. 8. Coronary artery disease. 9. Chronic constipation. 10. Hypothyroidism. PLAN: Currently, the patient is on aspirin 81 daily. She is on Eliquis. She is on Lasix and metoprolol. She is on laxative and Protonix. We will continue her on Teflaro as recommended by ID, out of bed to chair, physical therapy evaluation, and TCU evaluation has been requested. Chandrika Robin MD
--- NOTE | 2017-07-05 08:36 | CP.PCM.PN ---
Subjective - Date & Time of Evaluation Date of Evaluation: 07/05/17 Time of Evaluation: 07:00 - Subjective Subjective: Stable on 2R. She feels better. No SOB at rst. No CP. Legs better. V/S noted. AF PE: Lungs: few rhonchi Cor.: irreg. S1S2, VNADANA Abd: obese Ext.: improved cellulitis, less edema Neuro.: alert I/S=9182/1500 BC x2 NG at 48 hrs. Labs noted. INR 2.17 Echo noted. Nl LV fx., Prosthetic , severe. Severe MR and TR Objective - Vital Signs/Intake and Output Vital Signs (last 24 hours): Temp Pulse Resp BP Pulse Ox 97.7 F 59 L 20 113/61 98 07/05/17 06:00 07/05/17 06:00 07/05/17 06:00 07/05/17 06:00 07/05/17 06:00 Intake and Output: 07/05/17 07/05/17 06:59 18:59 Intake Total 360 Output Total 1000 Balance -640 - Medications Medications: Current Medications Apixaban (Eliquis) 5 mg PO BID [facility] PRN Reason: Protocol Last Admin: 07/04/17 18:41 Dose: 5 mg Aspirin (Aspirin Chewable) 81 mg PO DAILY [facility] Last Admin: 07/04/17 09:36 Dose: 81 mg Furosemide (Lasix) 40 mg IVP DAILY [facility] Last Admin: 07/04/17 09:38 Dose: 40 mg Ceftaroline Fosamil 600 mg/ (Sodium Chloride) 100 mls @ 100 mls/hr IVPB Q12 [facility] PRN Reason: Protocol Stop: 07/12/17 13:13 Last Admin: 07/04/17 22:34 Dose: 100 mls/hr Levalbuterol HCl (Xopenex) 0.63 mg IH Q6 [facility] Last Admin: 07/05/17 08:19 Dose: 0.63 mg Levothyroxine Sodium (Synthroid) 112 mcg PO DAILY [facility] Last Admin: 07/04/17 09:40 Dose: 112 mcg Metoprolol Tartrate (Lopressor) 25 mg PO BID [facility] Last Admin: 07/04/17 09:38 Dose: Not Given Pantoprazole Sodium (Protonix Inj) 40 mg IVP DAILY [facility] Last Admin: 07/04/17 09:36 Dose: 40 mg Polyethylene Glycol (Miralax) 17 gm PO DAILY [facility] Last Admin: 07/04/17 09:39 Dose: 17 gm - Labs Labs: 07/04/17 06:30 07/03/17 07:00 PT 24.3 SECONDS (9.4-12.5) H 07/04/17 06:30 INR 2.17 (0.93-1.08) H 07/04/17 06:30 APTT 24.3 Seconds (25.1-36.5) L 07/02/17 16:45 Assessment and Plan - Assessment and Plan (Free Text) Assessment: Dyspnea/Edema/Cellulitis Remote AVR with severe stenosis Severe MR and TR and PH on echo RBBB/LAHB HBP Obesity/Very Sedentary Hypothyroid GB Surgery DJD Thrombpcytopenia Plan: Continue AB, as per ID As per Dr. Joy Hunter Resume metoprolol. Was held by NP. CRISOSTOMO to chair Monitor: labs, I/O, cultures, INR's, etc TCU eval. Will discuss the approach to prosthetic AV stenosis with her.
[2017-07-05] MEDS: Ceftaroline 600 MG in Sodium Chloride 0.9% 100 ML IVPB SCH (09:44)
[2017-07-05] MEDS: Levothyroxine 112 MCG TAB PO SCH (09:50)
[2017-07-05] MEDS: POLYETHYLENE GLYCOL 3350 17 GM/Dose PACKET PO SCH (09:51)
[2017-07-05 12:48] VITALS: RESP 18
[2017-07-05 17:33] VITALS: PULSE 59
[2017-07-05 17:38] VITALS: BP 107/84; TEMP 98.6; O2SAT 99
--- NOTE | 2017-07-05 18:54 | PN ---
DATE: SUBJECTIVE: The patient is an 82-year-old, seen and examined, sitting in chair. Still has left leg erythema. She states her breathing is much better. No nausea or vomiting. No diarrhea. Eating and tolerating. PHYSICAL EXAMINATION: VITAL SIGNS: The patient is afebrile, pulse 62, respirations 18, and blood pressure 129/64. LUNGS: Bilateral fair airflow. No rhonchi or crackle. HEART: S1 and S2 audible. ABDOMEN: Soft, nontender. No rebound. No guarding. NEUROLOGIC: The patient is awake, alert, oriented, and communicative. LABORATORY EXAMINATION: Her yesterday's PT is 24.3, INR 2.17. Her LDH is 885. Troponins are negative. Blood cultures are negative. ASSESSMENT: 1. Morbid obesity. 2. Bilateral leg cellulitis, left more than the right with +2 leg edema. 3. Aortic stenosis. 4. Mitral regurgitation and tricuspid regurgitation. 5. Hypothyroidism. 6. History of thrombocytopenia. 7. Leukocytosis, improving. PLAN: Currently, the patient is on Eliquis, aspirin 81 daily. She is on Lasix, metoprolol, and levothyroxine. She is getting Teflaro. TCU evaluation has been requested. If she is accepted, she can be transferred to TCU. Chandrika Robin MD
--- NOTE | 2017-07-05 21:32 | PN ---
DATE: 07/05/2017 SUBJECTIVE: The patient is in bed, in no acute distress. OBJECTIVE: VITAL SIGNS: Temperature is 98, blood pressure is 129/60, respiratory rate of 18. HEENT: Unremarkable. NECK: Supple. LUNGS: Have decreased breath sounds. HEART: Normal S1, S2. ABDOMEN: Soft. LABORATORY EXAMINATION: Reveals a white count of 10,000, hemoglobin of 11, and platelets of 89. Coagulation is noted. The chemistries reveals the patient has a BUN of 43, creatinine of 1.3. LFTs are noted. Microbiology reveals the blood cultures are negative. The patient's leg is much improved. ASSESSMENT AND PLAN: This is an 82-year-old female who was seen earlier this morning with a history of morbid obesity, body mass index of 47, congestive heart failure, arrhythmia, hypertension, hyperlipidemia, hypothyroidism, with severe sepsis with a left leg cellulitis, acute kidney injury, which is improving, day #3 of Teflaro. We will continue the present course. The patient has a history of status post aortic valve replacement and with evidence of prosthetic stenosis and severe mitral and tricuspid regurgitation and a recent new onset of atrial fibrillation. We will follow with you. Dr. Toro's note is reviewed. Nael Hunter MD
[2017-07-06] MEDS ORDERED: Pantoprazole 40 mg EC Tab PO SCH (07:30)
== END 2017-07-05 18:37 | DRG 872 ==
LOC: ED 15:42 → ERH 17:19 → 3RSO 20:30
PROVIDERS: ADMIT Internal Medicine Nephrology; ATTEND Internal Medicine Nephrology
PROC: 3E0F7GC Introduction of Other Therapeutic Substance into Respiratory Tract, Via Natural or Artificial Opening (ICD-10-PCS; principal; 2017-07-04)
DX: A41.9 Sepsis, unspecified organism (principal); N17.9 Acute kidney failure, unspecified; L03.116 Cellulitis of left lower limb; I11.0 Hypertensive heart disease with heart failure; I48.2 Chronic atrial fibrillation; D69.6 Thrombocytopenia, unspecified; E66.01 Morbid (severe) obesity due to excess calories; I08.1 Rheumatic disorders of both mitral and tricuspid valves; I50.9 Heart failure, unspecified; L03.115 Cellulitis of right lower limb; Z68.42 Body mass index [BMI] 45.0-49.9, adult; R65.20 Severe sepsis without septic shock; I25.10 Atherosclerotic heart disease of native coronary artery without angina pectoris; E03.9 Hypothyroidism, unspecified; M47.816 Spondylosis without myelopathy or radiculopathy, lumbar region; K59.09 Other constipation; I45.10 Unspecified right bundle-branch block; E78.5 Hyperlipidemia, unspecified; Z95.2 Presence of prosthetic heart valve

== ENCOUNTER 2017-07-05 18:37 | Inpatient (IN) | payer OTHER ==
[2017-07-05 19:28] VITALS: BMI 46.5
[2017-07-05] MEDS: Levalbuterol 0.63 MG/3 ML Inhal Soln UD IH SCH (20:01)
[2017-07-06] MEDS: Levalbuterol 0.63 MG/3 ML Inhal Soln UD IH SCH ×4 (01:54→20:26)
[2017-07-06] MEDS: Pantoprazole 40 mg EC Tab PO SCH (05:23)
[2017-07-06] MEDS: Levothyroxine 112 MCG TAB PO SCH (05:23)
[2017-07-06] MEDS: Ceftaroline 600 MG in Sodium Chloride 0.9% 100 ML IVPB SCH ×2 (05:23→17:24)
[2017-07-06] MEDS: POLYETHYLENE GLYCOL 3350 17 GM/Dose PACKET PO SCH (10:03)
--- NOTE | 2017-07-06 13:20 | CON ---
DATE: 07/06/2017 LOCATION: The patient is seen early this morning in room 304. CHIEF COMPLAINT: Leg infection times several days. HISTORY OF PRESENT ILLNESS: This is an 82-year-old female with a past medical history of congestive heart failure, arrhythmia, hypertension, hyperlipidemia, and morbid obesity with a BMI of 47, admitted with severe sepsis to the acute care with a left leg cellulitis, with acute kidney injury, now transferred to Transitional Care for further antibiotic and therapy and physical therapy. The patient states she is doing much better. Her shortness of breath is improved. No nausea. No vomiting. No chest pain. PAST MEDICAL HISTORY: Significant for congestive heart failure, arthritis, hyperlipidemia, morbid obesity, BMI of 47, and hypertension. The patient also has hypothyroidism. PAST SURGICAL HISTORY: Significant for cholecystectomy. The patient also has a valve replacement. REVIEW OF SYSTEMS: Reveals no fevers, no chills, no headaches or blurred vision. ALLERGIES: THE PATIENT HAS NO KNOWN ALLERGIES. MEDICATIONS: Reviewed. PHYSICAL EXAMINATION: VITAL SIGNS: The patient's temperature 98, blood pressure is 120/70, respiratory rate of 16. HEENT: Unremarkable. NECK: Supple. LUNGS: Decreased breath sounds. HEART: Normal S1 and S2. ABDOMEN: Soft, nontender. LABORATORY EXAMINATION: Reveals the white count has improved to 10, 000, hemoglobin 11, platelets of 89. Coagulation is noted. BUN of 43, creatinine of 1.3. Blood cultures are negative. Exam of the leg reveals the left leg is greatly improved. ASSESSMENT AND PLAN: This is an 82-year-old female seen earlier this morning with a history of morbid obesity, body mass index of 47, congestive heart failure, arrhythmia, hypertension, hyperlipidemia, hypothyroidism, admitted with severe sepsis with left leg cellulitis, acute kidney injury, today is day #4 of Teflaro. The patient has a history of status post aortic valve replacement with evidence of prosthetic stenosis and severe mitral and tricuspid regurgitation with a new onset of atrial fibrillation. We will continue to follow the patient's leg which appears to be improving, and review of orders reveals the patient's Teflaro is active. We will follow closely with you. Nael Hunter MD
[2017-07-07] MEDS: Levalbuterol 0.63 MG/3 ML Inhal Soln UD IH SCH ×4 (02:12→20:15)
--- NOTE | 2017-07-07 05:28 | HP ---
HISTORY OF PRESENT ILLNESS: The patient is 82 years old, who was initially brought in because of shortness of breath and bilateral leg swelling. She was treated for her CHF exacerbation, has been on IV antibiotics, was deconditioned, needed physical therapy, so she was transferred to TCU for rehab. PAST MEDICAL HISTORY: She has a significant past medical history for: 1. Congestive heart failure. 2. Generalized osteoarthritis. 3. Morbid obesity. 4. Hyperlipidemia. 5. Hypothyroidism. PAST SURGICAL HISTORY: Significant for cholecystectomy and mitral valve replacement. ALLERGIES: SHE IS NOT ALLERGIC TO ANY MEDICATIONS. MEDICATIONS AT HOME: She is on Teflaro, she is on aspirin, she is on Eliquis, MiraLax, Protonix 40 mg daily, metoprolol 50 mg daily, levothyroxine 112 mcg daily, Xopenex as needed, and Lasix 40 mg IV daily. SOCIAL HISTORY: She denies smoking, drinking, or alcohol use. REVIEW OF SYSTEMS: Significant for bilateral leg pain, complaining of bilateral leg swelling and shortness of breath. PHYSICAL EXAMINATION: GENERAL: On examination, she is awake, alert, and oriented, communicative. VITAL SIGNS: She is afebrile. Pulse 57, respirations 24, and blood pressure 120/60. LUNGS: Bilateral fair airflow. No rhonchi or crackles. HEART: S1 and S2 audible. No murmur. ABDOMEN: Soft, nontender. No rebound, No guarding, NEUROLOGIC: The patient is awake, alert, and oriented. EXTREMITIES: Bilateral legs, +2 edema, with erythema. ASSESSMENT: 1. Morbid obesity. 2. Bilateral leg edema. 3. Congestive heart failure. 4. Hypertension. 5. Hyperlipidemia. 6. Neuropathy. PLAN: We will continue the patient on aspirin. She is on Eliquis. She is on Lasix. We will continue that. She is also on metoprolol, and we will add Lyrica. Continue her on Teflaro. We will follow up with the patient in the a.m. Chandrika Robin MD
[2017-07-07] MEDS: Levothyroxine 112 MCG TAB PO SCH (05:54)
[2017-07-07] MEDS: Pantoprazole 40 mg EC Tab PO SCH (05:54)
[2017-07-07] MEDS: Ceftaroline 600 MG in Sodium Chloride 0.9% 100 ML IVPB SCH ×2 (05:54→17:25)
[2017-07-07] MEDS: POLYETHYLENE GLYCOL 3350 17 GM/Dose PACKET PO SCH (10:50)
--- NOTE | 2017-07-07 13:39 | PN ---
DATE: 07/07/2017 SUBJECTIVE: The patient is in bed, in no acute distress. PHYSICAL EXAMINATION: VITAL SIGNS: On exam, temperature is 98, blood pressure is 130/70, respiratory rate of 20, and heart rate of 60. HEENT: Examination of HEENT is unremarkable. NECK: Supple. LUNGS: Have decreased breath sounds. HEART: Normal S1 and S2. GASTROINTESTINAL: Abdominal examination is soft and nontender. EXTREMITIES: Examination of the leg is much improved. LABORATORY DATA: Laboratory examination is reviewed. ASSESSMENT AND PLAN: This is an 82-year-old female with congestive heart failure, arrhythmia, hypertension, hyperlipidemia, morbid obesity, and body mass index of 47, who was admitted to the acute care with severe sepsis with a left leg cellulitis and acute kidney injury, which is much improved on Teflaro. May switch to p.o. doxycycline and 100 mg p.o. b.i.d. 5 days p.o. Vantin 200 mg p.o. b.i.d. x5 days to complete therapy. When the patient is ready for discharge may be able to switch to p.o. antibiotics. Nael Hunter MD
--- NOTE | 2017-07-07 19:49 | PN ---
DATE: SUBJECTIVE: The patient is an 82-year-old seen and examined, sitting in chair, comfortable, wants to go home. She states her shortness of breath is better. Leg pain is better. PHYSICAL EXAMINATION: VITAL SIGNS: She is afebrile, pulse 60, respirations 20 and blood pressure 130/72. LUNGS: Bilateral fair airflow, decreased at bases. HEART: S1 and S2 audible. ABDOMEN: Soft and nontender. No rebound. No guarding. NEUROLOGIC: The patient is awake, alert, oriented and communicative. LABORATORY EXAMINATION: Blood cultures are negative; otherwise, there is no new lab available today. ASSESSMENT: 1. Morbid obesity. 2. Congestive heart failure, acute on chronic. 3. Bilateral leg cellulitis. 4. Bilateral leg edema. 5. Hypertension. 6. Hyperlipidemia. 7. Chronic atrial fibrillation. PLAN: I will order for CBC and CMP in a.m. Encourage ambulation. Currently, she is on Eliquis and Teflaro. She might be discharged on Vantin and doxycycline. We will reevaluate the patient in a.m. and make a discharge plan. Chandrika Robin MD
[2017-07-08] MEDS: Levalbuterol 0.63 MG/3 ML Inhal Soln UD IH SCH ×4 (03:17→22:40)
[2017-07-08] MEDS: Ceftaroline 600 MG in Sodium Chloride 0.9% 100 ML IVPB SCH ×2 (05:29→18:04)
[2017-07-08] MEDS: Pantoprazole 40 mg EC Tab PO SCH (05:29)
[2017-07-08] MEDS: Levothyroxine 112 MCG TAB PO SCH (05:29)
[2017-07-08 07:13] LABS: BASO # 0.07 K/mm3 (0.0-2.0); BASO % 0.9 % (0.0-3.0); EOS # 0.5 (0.0-0.7); GRAN # 5.62 (1.4-6.5); GRAN % 72.8 % (50.0-68.0); HEMATOCRIT 38.6 % (36.0-48.0); LYMPH % 12.4 % (22.0-35.0); MEAN CELL VOLUME 104.6 fl (80.0-105.0); MEAN CORPUSCULAR HEMOGLOBIN 31.4 pg (25.0-35.0); MEAN CORPUSCULAR HGB CONC 30.1 g/dl (31.0-37.0); MEAN PLATELET VOLUME 11.9 fl (7.0-11.0); MONO # 0.6 (0.1-0.6); MONO % 7.9 % (1.0-6.0); RED CELL DISTRIBUTION WIDTH 16.4 % (11.5-14.5); WHITE BLOOD COUNT 7.7 10^3/ul (4.5-11.0)
[2017-07-08 07:54] LABS: ALB/GLOB RATIO 1.2 (1.1-1.8); BILIRUBIN,TOTAL 1.6 mg/dL (0.2-1.3); CALCIUM 9.3 mg/dL (8.4-10.5); POTASSIUM 4.1 mmol/L (3.6-5.0); TOTAL PROTEIN 5.7 g/dL (5.8-8.3)
[2017-07-08] MEDS: POLYETHYLENE GLYCOL 3350 17 GM/Dose PACKET PO SCH (10:08)
--- NOTE | 2017-07-08 15:07 | PN ---
DATE: 07/08/2017 SUBJECTIVE: The patient is in bed in no acute distress, nontoxic. No fevers and chills. PHYSICAL EXAMINATION: VITAL SIGNS: Temperature is 98, blood pressure is 118/70, and respiratory rate of 16. HEENT: Unremarkable. NECK: Supple. LUNGS: Have decreased breath sounds. HEART: Normal S1 and S2. ABDOMEN: Soft and nontender. LABORATORY EXAMINATION: Reveals a white count of 7.7, hemoglobin of 11, and platelets of 101. Chemistries are noted. LFTs are elevated. ALT of 118, which is actually somewhat improved. ASSESSMENT AND PLAN: This is an 82-year-old female with congestive heart failure, arrhythmia, hypertension, hyperlipidemia, morbid obesity, body mass index of 47 was admitted to the acute care with severe sepsis, left foot cellulitis, acute kidney injury, both of which improved and was treated with Teflaro and we can switch to p.o. doxycycline 100 mg b.i.d. and p.o. Vantin 200 mg p.o. b.i.d. to complete 4 more days upon discharge, currently on ceftaroline. Nael Hunter MD
[2017-07-08 16:50] VITALS: O2SAT 96
--- NOTE | 2017-07-08 20:31 | PN ---
DATE: 07/08/2017 SUBJECTIVE: The patient is 82 years old, morbidly obese. She states she feels a lot better. Bleeding is better. Leg pain is better. She wants to go home. No nausea or vomiting. No diarrhea. Eating and tolerating well. PHYSICAL EXAMINATION VITAL SIGNS: She is afebrile. Pulse 60, respirations 18, blood pressure 132/70. LUNGS: Bilateral soft crackle at bases. Diffusely decreased breath sounds. No rhonchi. HEART: S1 and S2 audible. ABDOMEN: Soft and obese. Nontender. No rebound. No guarding. NEUROLOGICAL: The patient is awake, alert, oriented, communicative. LABORATORY EXAMINATION: WBC is 7.7, hemoglobin 11.6, hematocrit 38.6, platelet of 101. Chemistry: Sodium 139, potassium 4.1, chloride 103, CO2 of 29, BUN 34, creatinine 1.1, blood sugar 194, total bilirubin 1.6. ASSESSMENT: 1. Morbid obesity. 2. Bilateral leg cellulitis and edema. 3. Congestive heart failure. 4. Chronic atrial fibrillation. 5. Hyperlipidemia. PLAN: The patient is currently on Eliquis. She is on aspirin and Lasix. We will continue that. She is getting Lyrica, Protonix, and levothyroxine. She is also getting Teflaro, so plan is to discharge patient on . She definitely wants to go home. She will be discharged on Vantin and doxycycline. Chandrika Robin MD MTDD
[2017-07-09] MEDS: Levalbuterol 0.63 MG/3 ML Inhal Soln UD IH SCH ×3 (03:36→13:15)
[2017-07-09] MEDS: Ceftaroline 600 MG in Sodium Chloride 0.9% 100 ML IVPB SCH (06:11)
[2017-07-09] MEDS: Levothyroxine 112 MCG TAB PO SCH (06:13)
[2017-07-09] MEDS: Pantoprazole 40 mg EC Tab PO SCH (06:13)
[2017-07-09] MEDS: POLYETHYLENE GLYCOL 3350 17 GM/Dose PACKET PO SCH (09:24)
--- NOTE | 2017-07-09 11:31 | PN ---
DATE: 07/09/2017 SUBJECTIVE: The patient is in bed, in no acute distress, was seen earlier today. She is awake and alert x3-4. She wants to go home for [place]. PHYSICAL EXAMINATION: VITAL SIGNS: Temperature is 97, blood pressure is 111/50, respiratory rate of 18. HEENT: Unremarkable. NECK: Supple. LUNGS: Decreased breath sounds. HEART: Normal S1, S2. ABDOMEN: Soft, nontender. LABORATORY DATA: Reveals a white count of 7.7, hemoglobin of 11, platelets of 101. BUN of 34, creatinine of 1.1. ASSESSMENT AND PLAN: An 82-year-old female with congestive heart failure, arrhythmia, hypertension, hyperlipidemia, morbid obesity, body mass index of 47 with the acute care with severe sepsis, left foot cellulitis, acute kidney injury. The left leg is much improved. We can discontinue the Teflaro. We can switch to p.o. doxycycline 100 mg p.o. b.i.d. and Vantin 200 mg p.o. b.i.d. for 3 more days upon discharge. Nael Hunter MD
[2017-07-09 11:43] VITALS: BP 121/64; PULSE 54; RESP 20; TEMP 97.8
--- NOTE | 2017-07-09 11:44 | RAD ---
HISTORY: Hemoptysis. Portable study 09:45 COMPARISON: 07/02/2017 TECHNIQUE: Chest PA and lateral FINDINGS: LUNGS: No discrete pulmonary infiltrates. Pulmonary vascular plethora. PLEURA: No significant pleural effusion identified. No pneumothorax apparent. CARDIOVASCULAR: Cardiomegaly. No evidence of acute, significant cardiovascular disease. Incidental Finding(s): Postoperative changes related to sternotomy. OSSEOUS STRUCTURES: No significant abnormalities. VISUALIZED UPPER ABDOMEN: Normal. OTHER FINDINGS: None. IMPRESSION: No active disease. No significant interval change compared to the prior examination(s).
--- NOTE | 2017-07-10 15:03 | DS ---
HISTORY OF PRESENT ILLNESS: The patient is 82 years old, the patient of Dr. Hamilton, was admitted because of bilateral leg swelling and shortness of breath. The patient was found to be in AFib and having bilateral leg cellulitis. The patient was diuresed and was evaluated by space operations officer and started on Eliquis, doing well, insisting to go home on . She states she understands she is not fully treated yet, but she states everybody is waiting for me at home and she has to go today, so she is being discharged today. PHYSICAL EXAMINATION: GENERAL: She is awake, alert, oriented, and communicative. VITAL SIGNS: She is afebrile, pulse 54, respirations 20, blood pressure 121/64. LUNGS: Bilateral few soft crackle at bases. HEART: S1 and S2 audible. ABDOMEN: Soft and nontender. No rebound. No guarding. Obese. No hepatosplenomegaly. NEUROLOGICAL: The patient is awake, alert, and oriented, and communicative. Bilateral leg +1 edema and redness. LABORATORY EXAM: There is no new lab available today; however, she has x-ray of chest done that is unremarkable. Since she had an episode of hemoptysis today, her Eliquis was held. ASSESSMENT AND PLAN; 1. Morbid obesity. 2. Hypertension. 3. New onset of atrial fibrillation. 4. Hyperlipidemia. 5. Hypertension. 6. Chronic atrial fibrillation. 7. Bilateral leg cellulitis, improving. PLAN: The patient is being discharged home on doxycycline. She is being discharged on Vantin 200 mg b.i.d., doxycycline 100 mg b.i.d. for three more days. She was given Eliquis 2.5 mg b.i.d., and she will resume all other medication including levothyroxine and Xopenex, metoprolol, and aspirin. She will follow up with her PMD. Chandrika Robin MD
== END 2017-07-09 14:09 | disposition home or self-care (01) | DRG 872 ==
LOC: TRCU 18:37
PROVIDERS: ADMIT Internal Medicine Nephrology; ATTEND Internal Medicine Nephrology
PROC: F07Z9FZ Gait Training/Functional Ambulation Treatment using Assistive, Adaptive, Supportive or Protective Equipment (ICD-10-PCS; principal; 2017-07-06)
PROC: F07M6ZZ Therapeutic Exercise Treatment of Musculoskeletal System - Whole Body (ICD-10-PCS; 2017-07-06)
PROC: F08Z0ZZ Bathing/Showering Techniques Treatment (ICD-10-PCS; 2017-07-07)
PROC: F08Z2ZZ Grooming/Personal Hygiene Treatment (ICD-10-PCS; 2017-07-07)
DX: A41.9 Sepsis, unspecified organism (principal); N17.9 Acute kidney failure, unspecified; G62.9 Polyneuropathy, unspecified; E66.01 Morbid (severe) obesity due to excess calories; I08.1 Rheumatic disorders of both mitral and tricuspid valves; I11.0 Hypertensive heart disease with heart failure; L03.115 Cellulitis of right lower limb; I48.2 Chronic atrial fibrillation; I50.9 Heart failure, unspecified; Z68.42 Body mass index [BMI] 45.0-49.9, adult; L03.116 Cellulitis of left lower limb; R65.20 Severe sepsis without septic shock; E03.9 Hypothyroidism, unspecified; E78.5 Hyperlipidemia, unspecified; M15.9 Polyosteoarthritis, unspecified; Z95.2 Presence of prosthetic heart valve

== ENCOUNTER 2017-07-11 09:30 | Inpatient (IN) | payer MEDICARE, OTHER ==
[2017-07-11 09:31] VITALS: BMI 47.7
[2017-07-11] MEDS ORDERED: Albuterol-Ipratrop 3 mg / 0.5 (3 ml) UD IH STA (10:01)
--- NOTE | 2017-07-11 10:03 | ED PDOC ---
Arrival/HPI - General Chief Complaint: GI Problem Time Seen by Provider: 07/11/17 09:39 Historian: Patient - History of Present Illness Narrative History of Present Illness (Text): 07/11/17 10:00 An 82 year old female, whose past medical history includes hypertension, hyperlipidemia, COPD, CHF, A-Fib, hypothyroidism, presents to the emergency department complaining of a headache, nausea, and cough. The patient states that the headache began today as she was sitting. She notes that she was recently discharged from TCU, and was not experiencing any of the symptoms while she was in the hospital. The patient denies fevers, chills, dizziness, chest pain, shortness of breath, dyspnea on exertion, abdominal pain, vomiting, diarrhea, back pain, neck pain, urinary/bowel changes, numbness/tingling or any other complaint. PMD: Dr. Oksana Hamilton Time/Duration: Other (Today) Symptom Onset: Sudden Symptom Course: Unchanged Context: Sitting, Home Past Medical History - Provider Review Nursing Documentation Reviewed: Yes - Infectious Disease Hx of Infectious Diseases: None - Past Medical History Past Medical History: Non-Contributing - Cardiac Hx Congestive Heart Failure: Yes Hx Hypertension: Yes - Pulmonary Hx Respiratory Disorders: No - Neurological Hx Neurological Disorder: No - HEENT Hx HEENT Disorder: No - Renal Hx Renal Disorder: No - Endocrine/Metabolic Hx Hypothyroidism: Yes - Hematological/Oncological Hx Blood Disorders: No - Integumentary Hx Dermatological Disorder: Yes - Musculoskeletal/Rheumatological Hx Arthritis: Yes - Gastrointestinal Hx Gastrointestinal Disorders: No - Genitourinary/Gynecological Hx Genitourinary Disorders: No - Psychiatric Hx Psychophysiologic Disorder: No Hx Substance Use: No - Surgical History Hx Valve Replacement: Yes - Anesthesia Hx Anesthesia: Yes Hx Anesthesia Reactions: No Hx Malignant Hyperthermia: No Family/Social History - Physician Review Nursing Documentation Reviewed: Yes Family/Social History: No Known Family HX Smoking Status: Never Smoked Hx Alcohol Use: No Hx Substance Use: No Allergies/Home Meds Allergies/Adverse Reactions: Allergies No Known Allergies Allergy (Verified 07/11/17 09:46) Home Medications: Home Meds Medication Instructions Recorded Confirmed Metoprolol Tartrate [Lopressor] 50 mg PO DAILY 07/02/17 07/11/17 Celecoxib [Celebrex] 200 mg PO DAILY 07/11/17 07/11/17 Furosemide [Lasix] 40 mg PO BID 07/11/17 07/11/17 Review of Systems - Physician Review All systems were reviewed & negative as marked: Yes - Review of Systems Constitutional: absent: Fevers, Night Sweats Respiratory: Cough Cardiovascular: absent: Chest Pain, JACOBS Gastrointestinal: Nausea. absent: Abdominal Pain, Diarrhea, Vomiting Genitourinary Female: absent: Urine Output Changes Musculoskeletal: absent: Back Pain, Neck Pain Neurological: Headache. absent: Dizziness Physical Exam Vital Signs Reviewed: Yes Vital Signs Temp Pulse Resp BP Pulse Ox 07/11/17 13:47 53 L 18 146/69 97 07/11/17 12:10 55 L 18 130/71 97 07/11/17 11:21 55 L 18 132/78 100 07/11/17 09:42 97.9 F 51 L 16 127/61 96 Temperature: Afebrile Blood Pressure: Normal Pulse: Bradycardic Respiratory Rate: Normal Appearance: Positive for: Well-Appearing, Non-Toxic, Comfortable Pain Distress: None Mental Status: Positive for: Alert and Oriented X 3 - Systems Exam Head: Present: Atraumatic, Normocephalic Pupils: Present: PERRL Extroacular Muscles: Present: EOMI Conjunctiva: Present: Normal Mouth: Present: Dry (Tounge), Normal Tounge (Dry Tongue) Neck: Present: Normal Range of Motion Respiratory/Chest: Present: Wheezes (Trace expiratory wheezing. ). No: Rales, Rhonchi Cardiovascular: Present: Regular Rate and Rhythm, Normal S1, S2. No: Murmurs Abdomen: Present: Normal Bowel Sounds. No: Tenderness, Distention, Peritoneal Signs Back: Present: Normal Inspection Upper Extremity: Present: Normal Inspection. No: Cyanosis, Edema Lower Extremity: Present: Edema (Trace lower exremity edema) Neurological: Present: GCS=15, CN II-XII Intact, Speech Normal Skin: Present: Warm, Dry, Normal Color, Other (Healing skin excoriations on right arm. No active bleeding. ). No: Rashes Psychiatric: Present: Alert, Oriented x 3, Normal Insight, Normal Concentration Medical Decision Making ED Course and Treatment: 07/11/17 10:07 Impression: An 82 year old female presents to the emergency department with complaining of a headache, cough, and nausea. Plan: -- EKG -- Chest X-ray -- Labs -- Tylenol, Duoneb, and IV Fluids -- Blood/ Urine Culture -- Urinalysis -- Reassess and disposition Prior Visits: Notes and results from previous visits were reviewed. Patient was last seen in the emergency department on 07/02/17. The patient was seen in the emergency department for shortness of breath and leg swelling. The patient was hospitalized. Progress Notes: 07/11/17 11:33 EKG: Ordered, reviewed, and independently interpreted the EKG. Rate : 54 BPM Rhythm : A- Fib 07/11/17 14:07: Discussed case with Dr. Fernández. Will admit patient to his service. CHEST X-RAY Dictator : Ankush Blanco MD Report Date : 07/11/2017 13:11:02 IMPRESSION:No evidence of pneumonia 07/11/17 14:44 Case was discussed with Dr. Robin who states she will admit this patient to her service. - Lab Interpretations Lab Results: 07/11/17 10:00 07/11/17 10:00 Lab Results 07/11/17 13:50: pO2 93 H, VBG pH 7.36, VBG pCO2 51.0, VBG HCO3 28.8 H, VBG Total CO2 30.4 H, VBG O2 Sat (Calc) 98.8 H, VBG Base Excess 2.4 H, VBG Potassium 5.0, Glucose 202 H, Lactate 2.4 H, FiO2 21.0, Sodium 138.0, Chloride 105.0, Venous Blood Potassium 5.0 07/11/17 10:25: pO2 36, VBG pH 7.34, VBG pCO2 56.0, VBG HCO3 30.2 H, VBG Total CO2 31.9 H, VBG O2 Sat (Calc) 72.0 H, VBG Base Excess 3.1 H, VBG Potassium 4.7, Glucose 201 H, Lactate 2.5 H, FiO2 21.0, Sodium 138.0, Chloride 103.0, Venous Blood Potassium 4.7 07/11/17 10:00: Sodium 138, Potassium 4.7, Chloride 102, Carbon Dioxide 27, Anion Gap 15, BUN 40 H, Creatinine 1.3 H, Est GFR ( Amer) 47, Est GFR ( Non-Af Amer) 39, Random Glucose 187 H, Calcium 10.0, Phosphorus 4.1, Magnesium 2.1, Total Bilirubin 3.1 H, AST 29, ALT 83 H, Alkaline Phosphatase 134 H, Troponin I 0.04 D, NT-Pro-B Natriuret Pep 7650 H, Total Protein 6.2, Albumin 3.4, Globulin 2.8, Albumin/Globulin Ratio 1.2 07/11/17 10:00: PT 17.7 H, INR 1.59 H, APTT 30.1 07/11/17 10:00: WBC 9.2, RBC 3.89, Hgb 12.1, Hct 40.4, MCV 103.9, MCH 31.1, MCHC 30.0 L, RDW 16.5 H, Plt Count 119 L, MPV 11.7 H, Gran % 82.5 H, Lymph % ( Auto) 9.2 L, [place] % (Auto) 6.0, Eos % (Auto) 1.5, Baso % (Auto) 0.8, Gran # 7.59 H, Lymph # 0.9 L, [place] # 0.6, Eos # 0.1, Baso # 0.07 I have reviewed the lab results: Yes - RAD Interpretation Radiology Orders: 07/11/17 09:56 CHEST PORTABLE [RAD] Stat - EKG Interpretation Interpreted by ED Physician: Yes Type: 12 lead EKG - Medication Orders Current Medication Orders: Acetaminophen (Tylenol 325mg Tab) 975 mg PO ONCE PRN PRN Reason: Fever >100.4 F Sodium Chloride (Sodium Chloride 0.9%) 500 mls @ 100 mls/hr IV .Q5H JILLIAN Last Admin: 07/11/17 11:05 Dose: 100 mls/hr eMAR Start Stop Document 07/11/17 11:05 EQ (Rec: 07/11/17 11:06 EQ [id number]) Intravenous Solution Start Date 07/11/17 Start Time 11:06 Discontinued Medications Albuterol/Ipratropium (Duoneb 3 Mg/0.5 Mg (3 Ml) Ud) 3 ml IH STAT STA Stop: 07/11/17 10:02 Last Admin: 07/11/17 11:07 Dose: 3 ml - Scribe Statement The provider has reviewed the documentation as recorded by the Jordy Dacosta Provider Scribe Attestation: All medical record entries made by the Scribe were at my direction and personally dictated by me. I have reviewed the chart and agree that the record accurately reflects my personal performance of the history, physical exam, medical decision making, and the department course for this patient. I have also personally directed, reviewed, and agree with the discharge instructions and disposition. Disposition/Present on Arrival - Present on Arrival Any Indicators Present on Arrival: No History of DVT/PE: No History of Uncontrolled Diabetes: No Urinary Catheter: No History of Decub. Ulcer: No History Surgical Site Infection Following: None - Disposition Have Diagnosis and Disposition been Completed?: Yes Diagnosis: Weakness, ARF (acute renal failure), Dehydration Disposition: HOSPITALIZED Disposition Time: 14:45 Patient Plan: Admission Condition: FAIR
[2017-07-11 10:27] LABS: BASO # 0.07 K/mm3 (0.0-2.0); BASO % 0.8 % (0.0-3.0); EOS # 0.1 (0.0-0.7); EOS % 1.5 % (1.5-5.0); GRAN # 7.59 (1.4-6.5); GRAN % 82.5 % (50.0-68.0); HEMOGLOBIN 12.1 g/dL (12.0-16.0); LYMPH # 0.9 (1.2-3.4); LYMPH % 9.2 % (22.0-35.0); MEAN CELL VOLUME 103.9 fl (80.0-105.0); MEAN CORPUSCULAR HEMOGLOBIN 31.1 pg (25.0-35.0); MEAN PLATELET VOLUME 11.7 fl (7.0-11.0); MONO # 0.6 (0.1-0.6); RBC 3.89 10^6/uL (3.5-6.1); RED CELL DISTRIBUTION WIDTH 16.5 % (11.5-14.5); WHITE BLOOD COUNT 9.2 10^3/ul (4.5-11.0)
[2017-07-11 10:40] LABS: INR 1.59 (0.93-1.08); PARTIAL THROMBOPLASTIN TIME 30.1 Seconds (25.1-36.5); PROTHROMBIN TIME 17.7 SECONDS (9.4-12.5)
[2017-07-11 10:40] LABS: VENOUS BLOOD GAS BASE EXCESS 3.1 mmol/L (0.0-2.0); VENOUS BLOOD GAS PO2 36 mm/Hg (30-55); VENOUS BLOOD PH 7.34 (7.32-7.43)
[2017-07-11 10:44] LABS: ALB/GLOB RATIO 1.2 (1.1-1.8); ALBUMIN 3.4 g/dL (3.0-4.8); MAGNESIUM 2.1 mg/dL (1.7-2.2)
[2017-07-11 10:47] LABS: TROPONIN I 0.04 ng/mL
[2017-07-11] MEDS: Sodium Chloride 0.9% 500 ML IV SCH ×2 (11:05→20:51)
--- NOTE | 2017-07-11 13:13 | RAD ---
HISTORY: cough r/o pna COMPARISON: 07/09/2017 FINDINGS: LUNGS: No active pulmonary disease. PLEURA: No significant pleural effusion identified, no pneumothorax apparent. CARDIOVASCULAR: Moderate cardiomegaly. Mild vascular congestion OSSEOUS STRUCTURES: No significant abnormalities. VISUALIZED UPPER ABDOMEN: Normal. OTHER FINDINGS: None. IMPRESSION: No evidence of pneumonia
[2017-07-11 14:10] LABS: VENOUS BLOOD GAS BASE EXCESS 2.4 mmol/L (0.0-2.0); VENOUS BLOOD GAS PO2 93 mm/Hg (30-55); VENOUS BLOOD PH 7.36 (7.32-7.43)
--- NOTE | 2017-07-11 14:20 | CP.PCM.HP ---
<Brie Fernandes - Last Filed: 07/11/17 15:36> History of Present Illness - History of Present Illness History of Present Illness: Brie Fernandes, PGY1, H&P for Dr Fernández: CC: generalized weakness, headache, nausea An 82 year old female, with PMH diastolic CHF, afib on Elliquis, hyperlipidemia , COPD, CHF, hypothyroidism, presents for generalized weakness, headache and nausea. Pt was recently discharged from TCU 07/09/17, for sob, bilateral leg swelling and bilateral leg cellulitis. She was not strong enough to go home, however she wanted to spend [place] with her family. Pt states that while she was at [facility] from 06/22-07/09, she decompensated and lost her strength to walk and move around. She has not been walking with her walker at home and feels generalized weakness for the past many days. This morning, pt states that she also began having a frontal bilateral headache, rates it 4/10, and some nausea. Denies vomiting, abdominal pain, hematochezia, diarrhea, constipation, emesis, cp, sob, urinary symptoms, diaphoresis. Pt also reports decreased appetite for few days. In ed, pt HD stable. given duoneb x1. 12 point ROS reviewed and negative except as per HPI. 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 All NKDA Home med ASA 81, Lopressor 50 QD Lasix 40, K-Dur 20 Er Synthroid 0.112 Brule 3 Inhaler Miralax daily Elliquis 2.5 BID Present on Admission - Present on Admission Any Indicators Present on Admission: No History of DVT/PE: No History of Uncontrolled Diabetes: No Urinary Catheter: No Decubitus Ulcer Present: No Review of Systems - Review of Systems All systems: reviewed and no additional remarkable complaints except Review of Systems: as per HPI Past Patient History - Infectious Disease Hx of Infectious Diseases: None - Past Social History Smoking Status: Never Smoked - CARDIAC Hx Congestive Heart Failure: Yes Hx Hypertension: Yes - PULMONARY Hx Respiratory Disorders: No - NEUROLOGICAL Hx Neurological Disorder: No - HEENT Hx HEENT Problems: No - RENAL Hx Chronic Kidney Disease: No - ENDOCRINE/METABOLIC Hx Hypothyroidism: Yes - HEMATOLOGICAL/ONCOLOGICAL Hx Blood Disorders: No - INTEGUMENTARY Hx Dermatological Problems: Yes - MUSCULOSKELETAL/RHEUMATOLOGICAL Hx Arthritis: Yes - GASTROINTESTINAL Hx Gastrointestinal Disorders: No - GENITOURINARY/GYNECOLOGICAL Hx Genitourinary Disorders: No - PSYCHIATRIC Hx Psychophysiologic Disorder: No Hx Substance Use: No - SURGICAL HISTORY Hx Valve Replacement: Yes - ANESTHESIA Hx Anesthesia: Yes Hx Anesthesia Reactions: No Hx Malignant Hyperthermia: No Meds Allergies/Adverse Reactions: Allergies Allergy/AdvReac Type Severity Reaction Status Date / Time No Known Allergies Allergy Verified 07/11/17 09:46 Physical Exam - Constitutional Appears: Non-toxic, No Acute Distress, Chronically Ill - Head Exam Head Exam: ATRAUMATIC, NORMOCEPHALIC - Eye Exam Eye Exam: EOMI, PERRL Pupil Exam: PERRL - ENT Exam ENT Exam: Mucous Membranes Moist Additional comments: erythematous pharynx. no tonsillar exudates, no LAD - Neck Exam Neck exam: Positive for: Normal Inspection. Negative for: Lymphadenopathy, Tenderness - Respiratory Exam Respiratory Exam: absent: Accessory Muscle Use, Chest Wall Tenderness, Respiratory Distress Additional comments: Bibasilar crackles - Cardiovascular Exam Cardiovascular Exam: Bradycardia, Irregular Rhythm, Systolic Murmur - GI/Abdominal Exam GI & Abdominal Exam: Normal Bowel Sounds, Soft. absent: Diminished Bowel Sounds , Distended, Firm, Guarding, Organomegaly, Tenderness - Extremities Exam Extremities exam: Positive for: pedal edema Additional comments: 2-3+ pedal edema. Mild increased warmth and erythema bilaterally (recovering cellulitis) - Back Exam Back exam: NORMAL INSPECTION - Neurological Exam Neurological exam: Alert, Oriented x3 - Psychiatric Exam Psychiatric exam: Normal Affect, Normal Mood - Skin Skin Exam: Normal Color, Warm Results - Vital Signs Recent Vital Signs: Last Vital Signs Temp 97.9 F 07/11/17 09:42 Pulse 53 L 07/11/17 13:47 Resp 18 07/11/17 13:47 BP 146/69 07/11/17 13:47 Pulse Ox 97 07/11/17 13:47 - Labs Result Diagrams: 07/11/17 10:00 07/11/17 10:00 Assessment & Plan - Assessment and Plan (Free Text) Assessment: 82 F, with PMH diastolic CHF, HTN, Aortic valve replacement, a-fib on Elliquis , presents for generalized weakness, headache, nausea, b/l leg cellulitis: Generalized weakness: - likely 2/2 decompensation vs worsening chf/other comorbidities - PT eval - Optimize other medical conditions - soft 2gm Na diet Hx of CHF: - BNP this admission 7650 (prev 74675) - CXR shows mild vac congestion - Echo 07/03/19 shows ef 67%. severe biatrial enlargement. 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 severe MR/TR - Cardio c/s. f/u recs - strict i&os, daily weights, hob 30 - IV lasix 40 IV - will resume lasix home dosage tomorrow B/l cellulitis: - C/w home doxycycline and vantin for 2 mroe days - cont to monitor Nasal congestion and nausea/headache: - Claritin - Zofran prn - Tylenol prn bilirubinemia with AST/ALT - Asymptomatic - consider abd u/s HTN, Risk CAD - ASA, Lopressor 25 bid Constipation - miralax Hypothyroidism - cont home synthroid - TSH Consult Card = Dr Toro PPX: jose lama Discussed with Dr Fernández. Brie Fernandes, PGY1 - Date & Time Date: 07/11/17 Time: 16:08 <Artur Fernández - Last Filed: 07/12/17 12:38> Results - Vital Signs Recent Vital Signs: Last Vital Signs Temp 97.8 F 07/12/17 08:00 Pulse 77 07/12/17 11:00 Resp 21 07/12/17 08:00 BP 117/76 07/12/17 11:00 Pulse Ox 95 07/12/17 08:00 - Labs Result Diagrams: 07/11/17 10:00 07/11/17 10:00 Labs: Laboratory Results - last 24 hr 07/11/17 07/11/17 07/11/17 16:00 17:00 17:00 Urine Color Yellow Urine Appearance Sl cloudy Urine pH 6.0 Ur Specific [place] >= 1.030 Urine Protein 100 H Urine Glucose (UA) Negative Urine Ketones Negative Urine Blood Moderate H Urine Nitrate Negative Urine Bilirubin Negative Urine Urobilinogen 0.2 Ur Leukocyte Esterase Negative Urine RBC 10 - 15 Urine WBC 2 - 5 Ur Epithelial Cells 4 - 5 Urine Bacteria Few Hyaline Casts 0 - 2 Influenza Typ A,B (EIA) Negative for flu a/b Grp A Beta Strep Ag Negative Attending/Attestation - Attestation I have personally seen and examined this patient.: Yes I have fully participated in the care of the patient.: Yes I have reviewed all pertinent clinical information: Yes Notes (Text): 07/12/17 12:32 Patient was seen and examined with medical transcription supervisor. Agreed with resident assessment and plan. 82 year old female, with PMH diastolic CHF, afib on anticoagulation with Apixiban, hyperlipidemia, COPD, CHF, hypothyroidism, was recently treated for acute on chronic diastolic CHF exacerbation, bilateral leg cellulitis and deconditioning at [facility] and TCU is admitted with history of generalized weakness , nausea and dyspnea on exerion.Patient has basal crackle and leg edema, but BNP is improving, will give IV lasix today and will restart oral lasix in the morning. Bilateral leg Cellulitis is improving, we will continue oral antibiotics. Nausea has improved after Zofran Deconditioning , we will get Physical therapy evaluation. Management plan was discussed in detail with patient and son who is at bed side. Education was provided.
[2017-07-11 16:17] LABS: URINE BILIRUBIN NEGATIVE (NEGATIVE); URINE BLOOD MODERATE (NEGATIVE); URINE GLUCOSE (UA) NEGATIVE (NEGATIVE); URINE LEUKOCYTE ESTERASE NEGATIVE Leu/uL (NEGATIVE); URINE NITRATE NEGATIVE (NEGATIVE); URINE PROTEIN 100 mg/dL (<30 mg/dL); URINE UROBILINOGEN 0.2 E.U./dL (<1 E.U./dL)
[2017-07-11 16:23] LABS: URINE APPEARANCE SL CLOUDY (CLEAR); URINE COLOR YELLOW (YELLOW)
[2017-07-11 16:30] LABS: URINE BACTERIA FEW (NEG); URINE HYALINE CAST 0 - 2 /hpf
--- NOTE | 2017-07-11 17:01 | CARD ---
APPROVED REPORT EKG Measurement Heart [id number] <Conclusion> Atrial fibrillation with slow ventricular response Left axis deviation Right bundle branch block Abnormal ECG
[2017-07-11] MEDS ORDERED: Cefpodoxime (Vantin) 200 mg Tab PO SCH (18:00)
[2017-07-12] MEDS: CELECOXIB 200 MG PO SCH (09:33)
[2017-07-12] MEDS: guaiFENesin DM 100 mg-10 mg/5 ml UD PO PRN ×3 (15:53→23:32)
--- NOTE | 2017-07-12 17:44 | CARD ---
APPROVED REPORT EKG Measurement Heart [id number] <Conclusion> Atrial fibrillation with slow ventricular response Left axis deviation Right bundle branch block Abnormal ECG
[2017-07-12] MEDS: Nystatin 100,000 Units/gm Topical Pow(15 gm) TOP SCH (22:25)
[2017-07-13] MEDS: guaiFENesin DM 100 mg-10 mg/5 ml UD PO PRN ×2 (05:50→11:09)
[2017-07-13 06:20] LABS: HEMOGLOBIN 11.2 g/dL (12.0-16.0); MEAN CELL VOLUME 104.2 fl (80.0-105.0); MEAN CORPUSCULAR HEMOGLOBIN 31.7 pg (25.0-35.0); MEAN CORPUSCULAR HGB CONC 30.4 g/dl (31.0-37.0); MEAN PLATELET VOLUME 11.6 fl (7.0-11.0); RBC 3.53 10^6/uL (3.5-6.1); RED CELL DISTRIBUTION WIDTH 16.8 % (11.5-14.5); WHITE BLOOD COUNT 9.8 10^3/ul (4.5-11.0)
[2017-07-13 06:41] LABS: ALB/GLOB RATIO 1.1 (1.1-1.8); ALBUMIN 2.8 g/dL (3.0-4.8); CALCIUM 9.4 mg/dL (8.4-10.5)
[2017-07-13] MEDS: Nystatin 100,000 Units/gm Topical Pow(15 gm) TOP SCH ×2 (10:01→17:53)
--- NOTE | 2017-07-13 13:12 | CON ---
DATE: 07/13/2017 INDICATIONS: Weakness, edema, and prosthetic aortic valve stenosis. HISTORY OF PRESENT ILLNESS: This is an 82-year-old woman well known to me readmitted after she complained of headache, nausea, weakness, and shortness of breath, having arrived home from the TCU. She was admitted to [facility] several weeks ago with edema, shortness of breath and was found to have severe prosthetic aortic valve stenosis as well as severe mitral regurgitation, tricuspid regurgitation, and pulmonary hypertension. She was treated medically and improved. She went to the TCU. She went home on , but almost immediately felt unwell and came back to the hospital. Her symptoms have improved, although she still has shortness of breath with minimal exertion, which is a chronic symptom for her. The headache has improved. There is no chest pain, orthopnea, PND, syncope, presyncope, lightheadedness, dizziness, vertigo, palpitations, abdominal pain, nausea, vomiting, diarrhea, constipation, fever, chills, cough, sputum production or hemoptysis. PAST MEDICAL HISTORY: Notable for aortic valve replacement. She has significant aortic stenosis based on recent echocardiogram. She also has severe MR, TR and pulmonary hypertension. She has atrial fibrillation, which is relatively new. 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 There is a history of hypertension, COPD, obesity, sedentary lifestyle, hypothyroidism, degenerative joint disease, gallbladder surgery, and variable thrombocytopenia. MEDICATIONS AT THE TIME OF ADMISSION: Included Celebrex, Doryx, Eliquis 2.5 b.i.d., Lasix 40 mg b.i.d., metoprolol 50 mg daily, and Vantin. ALLERGIES: THERE ARE NO KNOW MEDICATION ALLERGIES. SOCIAL HISTORY: She lives at home. She is not very ambulatory. She is a nonsmoker. She does not drink alcohol significantly. FAMILY HISTORY: Noncontributory. REVIEW OF SYSTEMS: A 10-point review of systems is otherwise unremarkable except as noted above. PHYSICAL EXAMINATION: GENERAL: She is a well-developed elderly woman, lying in bed on Telemetry, in no acute distress. VITAL SIGNS: Notable for atrial fibrillation at 50 beats per minute. Her Lopressor was held yesterday because of heart rates in the 40s and 50s. She is afebrile, blood pressure 114/70, respirations 18-22, and O2 sat 94-99% on nasal cannula. HEENT: Reveals no neck vein distention, thyromegaly or carotid bruits. Mucous membranes are moist. Conjunctivae pink. NECK: Supple. LUNG: Lung vargas scattered rhonchi. HEART: Reveals systolic ejection murmur in the aortic space and along the left sternal border. ABDOMEN: Soft. Bowel sounds present. No mass, organomegaly, tenderness, rebound or guarding. No CVA tenderness. No palpable abdominal aortic aneurysm. EXTREMITIES: Revealed significant lower extremity edema. NEUROLOGIC: She was awake, alert, and oriented. PSYCHIATRIC: Normal as to mood and affect. SKIN: Warm and dry. No rashes or cellulitis. LABORATORY DATA AND IMAGING: A portable chest x-ray revealed no evidence of pneumonia. EKG demonstrates atrial fibrillation, right bundle-branch block, left anterior hemiblock, poor R-wave progression, nonspecific ST-wave changes, no change from prior EKG. White count normal, platelet count 119,000, repeat 122,000, hemoglobin of 11.2, and hematocrit 36.8. PT 17.7, INR 1.59, and PTT 30.1. Blood gases are noted. Electrolytes, BUN, creatinine unremarkable. Blood sugar is noted. Magnesium 2.1 and bilirubin 2.1. Mild elevation of LFTs noted. Troponin is 0.04. BNP is 7650. Procalcitonin is less than 0.05. Urinalysis is noted. Influenza was negative. IMPRESSION AND PLAN: Kaycee Day is an 82-year-old woman with aortic valve replacement with echocardiographic evidence of prosthetic valve stenosis with severe mitral regurgitation, tricuspid regurgitation, and pulmonary hypertension who presents with headache, weakness, and cough initially, has lower extremity edema as well. At this time, I agree with current plans. I have spoken with the patient and daughter with regard to the aortic valve. They do not want intervention for prosthetic aortic valve stenosis. They want medical treatment. She is getting IV Lasix. We will monitor I's and O's and attempt to diurese her in order to improve her edema. She is getting aspirin, Eliquis, and metoprolol, which I have reduced to 25 mg daily. She is also getting Claritin, Vantin, Tylenol p.r.n., and Zofran p.r.n. We will monitor I's and O's. We will check stool for occult blood. She can be out of bed to a chair. We will monitor chemistries. I will follow along with you. I will make additional recommendations based on her clinical course. Vazquez Toro MD ELIDIA
--- NOTE | 2017-07-13 15:38 | US ---
HISTORY: Elevated LFTs COMPARISON: None. TECHNIQUE: Sonographic evaluation of the right upper quadrant of the abdomen. FINDINGS: LIVER: Measures 16.5 cm in length. 2 Hepatopedal blood flow. Fatty infiltration manifest ultrasonographically as increased echogenicity of the liver parenchyma. No mass. No intrahepatic bile duct dilatation. GALLBLADDER: Status post cholecystectomy. No abnormality is seen in the gallbladder fossa. COMMON BILE DUCT: Measures 3.7 mm. No stones. No dilatation. PANCREAS: Obscured by overlying bowel gas. Non diagnostic assessment of the pancreas RIGHT KIDNEY: Measures 4.4 x 9.6 cm in length. Normal echogenicity. No calculus, mass, or hydronephrosis. AORTA: No aneurysmal dilatation. IVC: Unremarkable. OTHER FINDINGS: None . IMPRESSION: Hepatic steatosis, otherwise unremarkable study. Limitations of the current examination: Nondiagnostic study of the pancreas.
[2017-07-13] MEDS: CELECOXIB 200 MG PO SCH (15:52)
--- NOTE | 2017-07-13 21:59 | CON ---
DATE: 07/13/2017 This patient was seen and evaluated earlier today. REASON FOR CONSULTATION: Abnormal LFTs. HISTORY OF PRESENT ILLNESS: This 82-year-old patient with past medical history of aortic valve replacement, aortic stenosis, severe mitral regurgitation, tricuspid regurgitation and pulmonary hypertension, history of atrial fibrillation, on Eliquis, admitted with shortness of breath with minimal exertion. The patient was recently at the hospital. She was found to have elevated liver enzymes, GI consult requested to evaluate this. Complains of some right upper quadrant discomfort. PAST MEDICAL HISTORY: Significant as above. History of COPD, obesity, hypothyroidism, degenerative joint disease status post gallbladder surgery, cholecystectomy and thrombocytopenia. ALLERGIES: NO KNOWN DRUG ALLERGIES. SOCIAL HISTORY: Denies smoking or alcohol. FAMILY HISTORY: Noncontributory. REVIEW OF SYSTEMS: Positive as above. The patient developed some skin rashes following the recent antibiotic use for cellulitis, which has been on hold now. PHYSICAL EXAMINATION GENERAL: The patient is lying on the bed not in acute distress. VITAL SIGNS: Temperature is 97.8, pulse 52, blood pressure 126/56 and respirations 21. HEENT: Atraumatic. Anicteric. NECK: Supple. HEART: S1 and S2 heard. There is a systolic murmur present. LUNGS: Bilateral air entry present, slightly reduced at the base. ABDOMEN: Distended. EXTREMITIES: Edema, erythematous lower extremities. NEUROLOGIC: Alert and oriented. SKIN: Multiple maculopapular rash is noticed. LABORATORY DATA: Hemoglobin 11.2, hematocrit 36.8, WBC is 9.8 and platelets 122. Total bilirubin 2.1, AST 45, ALT 75, alkaline phosphatase 151. BUN 10 and creatinine is 1.2. BNP is 7650. IMPRESSION: This 82-year-old patient with significant valvular disease, pulmonary hypertension status post right cholecystectomy admitted with shortness of breath and congestive heart failure, increased BNP, was found to have an elevated liver function tests mostly likely probably secondary to the hepatic congestion and has significant pulmonary hypertension, this could be significant contribution to this right-sided pressure. Other comorbidities include cellulitis, on antibiotics, history of atrial fibrillation, congestive heart failure, continue the Cardiology followup. Would recommend followup of the liver function tests, would request baseline hepatitis profile. Continue to closely followup her care and suggest further management based on the clinical course. The patient's INR is 1.59. Thank you very much for allowing me to participate in the care of the patient. Fouzia Keller MD MTDEstiven
--- NOTE | 2017-07-13 23:01 | CP.PCM.CON ---
History of Present Illness - History of Present Illness History of Present Illness: An 82 year old female, with PMH diastolic CHF, afib on Elliquis, hyperlipidemia , COPD, CHF, hypothyroidism, presents for generalized weakness, headache and nausea. Pt was recently discharged from TCU 07/09/17, for sob, bilateral leg swelling and bilateral leg cellulitis. pt states that she also began having a frontal bilateral headache. She has been bradycardiac on tele monitor. Complaining of itching all over body. Bilirubin elevated to 3.0. No chest pain. Review of Systems - Constitutional Constitutional: As Per HPI, Anorexia, Headache - EENT Eyes: absent: As Per HPI, Blind Spots, Blurred Vision, Change in Vision, Decreased Night Vision, Diplopia, Discharge, Dry Eye, Exophthalmos, Floaters, Irritation, Itchy Eyes, Loss of Peripheral Vision, Pain, Photophobia, Requires Corrective Lenses, Sees Flashes, Spots in Vision, Tunnel Vision, Other Visual Disturbances, Loss of Vision, Other Ears: absent: As Per HPI, Decreased Hearing, Ear Discharge, Ear Pain, Tinnitus, Abnormal Hearing, Disequilibrium, Dizziness, Other Nose/Mouth/Throat: absent: As Per HPI, Epistaxis, Nasal Congestion, Nasal Discharge, Nasal Obstruction, Nasal Trauma, Nose Pain, Post Nasal Drip, Sinus Pain, Sinus Pressure, Bleeding Gums, Change in Voice, Dental Pain, Dry Mouth, Dysphagia, Halitosis, Hoarsness, Lip Swelling, Mouth Lesions, Mouth Pain, Odynophagia, Sore Throat, Throat Swelling, Tongue Swelling, Facial Pain, Neck Pain, Neck Mass, Other - Breasts Breasts: absent: As Per HPI, Change in Shape, Mass, Pain, Nipple Discharge, Nipple Inversion, Skin Changes, Swelling, Other - Cardiovascular Cardiovascular: As Per HPI - Respiratory Respiratory: Cough, Dyspnea - Gastrointestinal Gastrointestinal: As Per HPI - Genitourinary Genitourinary: absent: As Per HPI, Change in Urinary Stream, Difficulty Urinating, Dysuria, Flank Pain, Hematuria, Pyuria, Nocturia, Urinary Incontinence, Urinary Frequency, Urinary Hesitance, Urinary Urgency, Voiding Freq/Small Amts, Freq UTI, Hx Renal/Bladder Calculi, Hx /Renal Surgery, Bladder Distension, Other - Reproductive: Female Reproductive:Female: absent: As Per HPI, Amenorrhea, Amenorrhea/ Control, Currently Menstual, Cycle <21 Days, Cycle >35 Days, Cycle Variable, Menses 1-7 Days, Menses >/= 8 Days, Menses Variable, Cycle > 4 Weeks Between, No Menses for 6 Months, Heavy Menses, Light Menses, Normal Menses, Spotting Between Cycles , S/P Hysterectomy, Menopausal, Post Menopausal, Premenarche, Abnormal Vaginal Bleeding, Dysmenorrhea, Dyspareunia, Genital Lesions, Genital Pruritis, Pelvic Pain, Prolapse Symptoms, Sexual Dysfunction, Vaginal Discharge, Vaginal Dryness , Vaginal Odor, Vaginal Pruritis, Other - Musculoskeletal Musculoskeletal: Muscle Weakness - Neurological Neurological: absent: As Per HPI, Abnormal Gait, Abnormal Hearing, Abnormal Movements, Abnormal Speech, Behavioral Changes, Burning Sensations, Confusion, Convulsions, Disequilibrium, Dizziness, Numbness, Focal Weakness, Frequent Falls , Headaches, Lack of Coordination, Loss of Vision, Memory Loss, Paresthesias, Radicular Pain, Restless Legs, Sensory Deficit, Syncope, Tingling, Tremor, Vertigo, Weakness, Other Visual Disturbances, Other - Hematologic/Lymphatic Hematologic: Easy Bruising Past Patient History - Infectious Disease Hx of Infectious Diseases: None - Past Social History Smoking Status: Never Smoked - CARDIAC Hx Cardiac Disorders: Yes Hx Congestive Heart Failure: Yes Hx Hypercholesterolemia: Yes Hx Hypertension: Yes - PULMONARY Hx Chronic Obstructive Pulmonary Disease (COPD): Yes - NEUROLOGICAL Hx Neurological Disorder: No - HEENT Hx HEENT Problems: No - RENAL Hx Renal Failure: Yes - ENDOCRINE/METABOLIC Hx Hypothyroidism: Yes - HEMATOLOGICAL/ONCOLOGICAL Hx Blood Disorders: No - INTEGUMENTARY Hx Dermatological Problems: Yes - MUSCULOSKELETAL/RHEUMATOLOGICAL Hx Arthritis: Yes - GASTROINTESTINAL Hx Gastrointestinal Disorders: No - GENITOURINARY/GYNECOLOGICAL Hx Genitourinary Disorders: No - PSYCHIATRIC Hx Psychophysiologic Disorder: No - SURGICAL HISTORY Hx Valve Replacement: Yes (Aortic) - ANESTHESIA Hx Anesthesia: Yes Hx Anesthesia Reactions: No Hx Malignant Hyperthermia: No Meds Allergies/Adverse Reactions: Allergies Allergy/AdvReac Type Severity Reaction Status Date / Time No Known Allergies Allergy Verified 07/11/17 09:46 - Medications Medications: Current Medications Acetaminophen (Tylenol 325mg Tab) 975 mg PO ONCE PRN PRN Reason: Fever >100.4 F Apixaban (Eliquis) 2.5 mg PO BID [facility] PRN Reason: Protocol Last Admin: 07/13/17 17:55 Dose: 2.5 mg Aspirin (Aspirin Chewable) 81 mg PO DAILY [facility] Last Admin: 07/13/17 11:09 Dose: 81 mg Famotidine (Pepcid) 20 mg PO 1000,2200 [facility] Last Admin: 07/13/17 21:14 Dose: 20 mg Fluocinonide (Lidex 0.05% Cream) 0 gm TOP BID [facility] Last Admin: 07/13/17 17:53 Dose: Not Given Fluocinonide (Lidex 0.05% Oint) 0 gm TOP BID [facility] Last Admin: 07/13/17 17:52 Dose: 0.5 oin Furosemide (Lasix) 40 mg IVP Q12 [facility] Last Admin: 07/13/17 21:07 Dose: 40 mg Guaifenesin/Dextromethorphan (Robitussin Dm) 5 ml PO Q4H PRN PRN Reason: Cough Last Admin: 07/13/17 11:09 Dose: 5 ml Loratadine (Claritin) 10 mg PO DAILY [facility] Last Admin: 07/13/17 11:09 Dose: 10 mg Metoprolol Tartrate (Lopressor) 25 mg PO DAILY [facility] Home Med - Celecoxib ([Celebrex] 200 Mg) 200 mg PO DAILY [facility] Last Admin: 07/13/17 15:52 Dose: Not Given Nystatin (Nystop Topical Powder) 0 gm TOP BID [facility] Last Admin: 07/13/17 17:53 Dose: 1 applic Ondansetron HCl (Zofran Inj) 4 mg IVP Q4H PRN PRN Reason: Nausea/Vomiting Physical Exam - Constitutional Appears: Chronically Ill - Head Exam Head Exam: ATRAUMATIC, NORMAL INSPECTION, NORMOCEPHALIC - Eye Exam Eye Exam: Scleral icterus - ENT Exam ENT Exam: Mucous Membranes Moist - Neck Exam Neck exam: Positive for: Normal Inspection - Respiratory Exam Respiratory Exam: Clear to Auscultation Bilateral, NORMAL BREATHING PATTERN - Cardiovascular Exam Cardiovascular Exam: Irregular Rhythm, +S1, +S2 - GI/Abdominal Exam GI & Abdominal Exam: Normal Bowel Sounds - Extremities Exam Extremities exam: Positive for: pedal edema - Back Exam Back exam: NORMAL INSPECTION - Neurological Exam Neurological exam: Alert, Oriented x3 - Psychiatric Exam Psychiatric exam: Anxious - Skin Skin Exam: Abrasion, Normal Color Results - Vital Signs Recent Vital Signs: Last Vital Signs Temp 97.8 F 07/13/17 14:00 Pulse 52 L 07/13/17 14:00 Resp 21 07/13/17 14:00 BP 133/69 07/13/17 21:07 Pulse Ox 99 07/13/17 06:00 - Labs Result Diagrams: 07/13/17 05:15 07/13/17 05:15 Labs: Laboratory Results - last 24 hr 07/13/17 07/13/17 05:15 05:15 WBC 9.8 RBC 3.53 Hgb 11.2 L Hct 36.8 MCV 104.2 MCH 31.7 MCHC 30.4 L RDW 16.8 H Plt Count 122 MPV 11.6 H Sodium 140 Potassium 3.8 Chloride 104 Carbon Dioxide 29 Anion Gap 10 BUN 45 H Creatinine 1.2 Est GFR ( Amer) 52 Est GFR (Non-Af Amer) 43 Random Glucose 154 H Calcium 9.4 Total Bilirubin 2.1 H AST 45 H D ALT 75 H Alkaline Phosphatase 151 H Total Protein 5.3 L Albumin 2.8 L Globulin 2.6 Albumin/Globulin Ratio 1.1 Assessment & Plan - Assessment and Plan (Free Text) Assessment: 1. CHF 2. Bradycardia 3. A-Fib 4. Hyperbilurubinemia 5. Anemia 6. On anticoagulation Plan : admit tele monitoring. Cardiology consult Dr. Toro requested. Hold beta shayne. lasix 40 mg IV bid. Replete pottasium. Bilirubin elevated 3.0. Will repeat in am. Likely due to congestive liver. Claritin daily for itching. Anticoagulation with eliquis.
--- NOTE | 2017-07-14 00:53 | PN ---
DATE: 07/13/2017 SUBJECTIVE: She is sitting on chair today. Mild respiratory distress. Complaining of itching all over the body. She has extensive excoriation, itching more from the back. She has bilateral leg swelling. On telemonitoring, she was found to be bradycardiac, the lowest heart rate noted was 30. She also had 2.6 seconds pauses. Denies any chest pain. REVIEW OF SYSTEMS: As per HPI. Rest of 12-point review of systems reviewed negative. PHYSICAL EXAMINATION: GENERAL: Comfortable in bed, in no acute distress. Sitting in chair. VITAL SIGNS: Temperature 97.8, heart rate 52 per minute, blood pressure 110/38, respiratory rate 18 per minute and oxygen saturation 98% on by nasal cannula. HEENT: Pallor positive. NECK: No lymphadenopathy. CHEST: Air entry present , equal and bilateral, decreased at bases. CARDIOVASCULAR: Heart rate irregularly irregular. Bradycardia present. ABDOMEN: Obese and nontender. EXTREMITIES: Bilateral 1+ edema. COLLECTION MANAGER: Alert and oriented x3. No focal, sensory and motor deficits. SKIN: Multiple petechiae all over the body, scratch lopez present on the back. MEDICATIONS: Tylenol 650 q. 6 hours p.r.n., Eliquis 2.5 mg b.i.d., aspirin 81 mg daily, Pepcid 20 mg b.i.d., Lasix 40 mg q. 12 hours, Robitussin p.r.n., Claritin 10 mg daily, metoprolol 25 mg daily and Zofran 4 mg IV q. 4 hours p.r.n. for nausea. LABORATORY DATA: 140 sodium, potassium 3.8, creatinine 1.2, bilirubin 2.1, alkaline phosphatase 151 and albumin 5.3. Hemoglobin 11.2, white count 9.8 and platelet count 122. ASSESSMENT: 1. Congestive heart failure. 2. Valvular heart disease with pulmonary hypertension, aortic valve stenosis, mitral regurgitation. 3. Atrial fibrillation. 4. Hyperbilirubinemia. 5. Anemia. PLAN: Ultrasound of the abdomen ordered. We will get GI consultation for hyperbilirubinemia. It is likely due to hepatic congestion, pulmonary hypertension and CHF. We will continue to monitor liver functions. She is getting Claritin 10 mg daily for itching. Moisturizer for body application ordered. Electrolytes within normal limits. Potassium is 3.8. She is currently on IV Lasix 40 b.i.d. Telemonitoring showed pauses and bradycardia. We will discuss with Dr. Toro for further management. Lowest heart rate is 30 beats per minute. The patient's daughter and son at the bedside. Daughter questioning IV Lasix. She is comfort care only, DNR, DNI. She does not want any aggressive treatment for the patient. I discussed with the daughter that IV Lasix is a part of comfort measurement. She is in significant respiratory distress currently also. She is currently on conservative management for symptomatic bradycardia. We will await Dr. Toro's input on that. Ultrasound of the abdomen ordered. GI consultation Dr. Keller requested. Naomi Roth MD MTDD
[2017-07-14 07:00] LABS: BASO # 0.05 K/mm3 (0.0-2.0); BASO % 0.5 % (0.0-3.0); EOS # 0.7 (0.0-0.7); EOS % 6.9 % (1.5-5.0); GRAN # 7.54 (1.4-6.5); HEMOGLOBIN 11.1 g/dL (12.0-16.0); LYMPH # 0.8 (1.2-3.4); LYMPH % 8.3 % (22.0-35.0); MEAN CORPUSCULAR HEMOGLOBIN 31.4 pg (25.0-35.0); MEAN CORPUSCULAR HGB CONC 30.2 g/dl (31.0-37.0); MEAN PLATELET VOLUME 11.3 fl (7.0-11.0); MONO # 0.7 (0.1-0.6); MONO % 7.3 % (1.0-6.0); RBC 3.54 10^6/uL (3.5-6.1); RED CELL DISTRIBUTION WIDTH 16.8 % (11.5-14.5); WHITE BLOOD COUNT 9.8 10^3/ul (4.5-11.0)
[2017-07-14 07:12] LABS: ALB/GLOB RATIO 1.1 (1.1-1.8); ALBUMIN 2.7 g/dL (3.0-4.8); CALCIUM 9.1 mg/dL (8.4-10.5); INR 1.81 (0.93-1.08); PROTHROMBIN TIME 20.1 SECONDS (9.4-12.5)
[2017-07-14] MEDS: Potassium Chloride 20 mEq/15 ml LIQ UD PO SCH ×2 (10:24→17:44)
[2017-07-14] MEDS: Nystatin 100,000 Units/gm Topical Pow(15 gm) TOP SCH ×2 (10:25→17:45)
[2017-07-14] MEDS: CELECOXIB 200 MG PO SCH (10:49)
[2017-07-15] MEDS ORDERED: Potassium Chloride 20 mEq ER Tab PO ONE (06:39)
--- NOTE | 2017-07-15 07:16 | CP.PCM.PN ---
Subjective - Date & Time of Evaluation Date of Evaluation: 07/14/17 Time of Evaluation: 11:00 - Subjective Subjective: DATE: 07/14/2017 SUBJECTIVE: Comfortable in bed. Mild respiratory distress. itching generalized, decreased. . She has bilateral leg swelling, stable. On telemonitoring, she is still bradycardiac, HR improved in 50s now. Denies any chest pain. Not ambulating. REVIEW OF SYSTEMS: As per HPI. Rest of 12-point review of systems reviewed negative. PHYSICAL EXAMINATION: GENERAL: Comfortable in bed, in no acute distress. Sitting in chair. VITAL SIGNS: reviewed. HEENT: Pallor positive. NECK: No lymphadenopathy. CHEST: Air entry present , equal and bilateral, decreased at bases. CARDIOVASCULAR: Heart rate irregularly irregular. Bradycardia present. ABDOMEN: Obese and nontender. EXTREMITIES: Bilateral 1+ edema. MANAGER ESTATE: Alert and oriented x3. No focal, sensory and motor deficits. SKIN: Multiple petechiae all over the body, scratch lopez present on the back. MEDICATIONS: Tylenol 650 q. 6 hours p.r.n., Eliquis 2.5 mg b.i.d., aspirin 81 mg daily, Pepcid 20 mg b.i.d., Lasix 40 mg q. 12 hours, Robitussin p.r.n., Claritin 10 mg daily, metoprolol 25 mg daily and Zofran 4 mg IV q. 4 hours p.r.n. for nausea. LABORATORY DATA: 140 sodium, potassium 3.8, creatinine 1.2, bilirubin 2.1, alkaline phosphatase 151 and albumin 5.3. Hemoglobin 11.2, white count 9.8 and platelet count 122. ASSESSMENT: 1. Congestive heart failure. 2. Valvular heart disease with pulmonary hypertension, aortic valve stenosis, mitral regurgitation. 3. Atrial fibrillation. 4. Hyperbilirubinemia. 5. Anemia. 6. Bradycardia PLAN: CHF improving. She is currently on IV Lasix 40 b.i.d. Will replete K, 40 mEQ PO today. bradycardia improved. Beta blockers on hold. No active intervention for valvular repair. Hb/Hct stable. itching improved. Benadryl 25 mg PO tid prn ordered. TCU consult ordered for gait improvement. Naomi Roth MD Objective - Vital Signs/Intake and Output Vital Signs (last 24 hours): Temp Pulse Resp BP Pulse Ox 97.8 F 61 21 110/56 L 98 07/15/17 05:50 07/15/17 05:50 07/15/17 05:50 07/15/17 05:50 07/15/17 05:50 Intake and Output: 07/15/17 07/15/17 06:59 18:59 Intake Total 60 Output Total 1000 Balance -940 - Medications Medications: Current Medications Acetaminophen (Tylenol 325mg Tab) 975 mg PO ONCE PRN PRN Reason: Fever >100.4 F Apixaban (Eliquis) 2.5 mg PO BID [facility] PRN Reason: Protocol Last Admin: 07/14/17 17:44 Dose: 2.5 mg Aspirin (Aspirin Chewable) 81 mg PO DAILY [facility] Last Admin: 07/14/17 10:22 Dose: 81 mg Diphenhydramine HCl (Benadryl) 25 mg PO Q6 PRN PRN Reason: Itching / Pruritus Last Admin: 07/15/17 06:14 Dose: 25 mg Famotidine (Pepcid) 20 mg PO 1000,2200 [facility] Last Admin: 07/14/17 21:43 Dose: 20 mg Fluocinonide (Lidex 0.05% Cream) 0 gm TOP BID [facility] Last Admin: 07/14/17 17:37 Dose: Not Given Fluocinonide (Lidex 0.05% Oint) 0 gm TOP BID [facility] Last Admin: 07/14/17 17:46 Dose: 1 applic Furosemide (Lasix) 40 mg IVP Q12 [facility] Last Admin: 07/14/17 21:43 Dose: 40 mg Guaifenesin/Dextromethorphan (Robitussin Dm) 5 ml PO Q4H PRN PRN Reason: Cough Last Admin: 07/13/17 11:09 Dose: 5 ml Hydroxyzine HCl (Atarax) 25 mg PO Q6H PRN PRN Reason: Itching / Pruritus Metoprolol Tartrate (Lopressor) 25 mg PO DAILY [facility] Home Med - Celecoxib ([Celebrex] 200 Mg) 200 mg PO DAILY [facility] Last Admin: 07/14/17 10:49 Dose: Not Given Nystatin (Nystop Topical Powder) 0 gm TOP BID [facility] Last Admin: 07/14/17 17:45 Dose: 1 applic Ondansetron HCl (Zofran Inj) 4 mg IVP Q4H PRN PRN Reason: Nausea/Vomiting Potassium Chloride (K-Dur 20 Meq Er Tab) 40 meq PO DAILY [facility] - Labs Labs: 07/14/17 06:00 07/14/17 06:00 PT 20.1 SECONDS (9.4-12.5) H 07/14/17 06:00 INR 1.81 (0.93-1.08) H 07/14/17 06:00 APTT 30.1 Seconds (25.1-36.5) 07/11/17 10:00
--- NOTE | 2017-07-15 08:28 | PN ---
DATE: 07/15/2017 SUBJECTIVE: She is comfortable in bed in no acute distress. Itching has marked decreased. She has hyperbilirubinemia related to hepatic congestion. Cardiovascular, blood pressure have been stable. She has bradycardia on telemetry monitoring. Denies nausea or vomiting. No chest pain. REVIEW OF SYSTEMS: As per HPI. Rest of 12-point review of systems reviewed negative. PHYSICAL EXAMINATION: GENERAL: Comfortable in bed in no acute distress, morbidly obese. VITAL SIGNS: Heart rate 60 per minute, blood pressure 110/70, afebrile temperature 98.5, respiratory rate 18 per minute, and oxygen saturation 98% on room air. HEENT: Pallor positive. NECK: No lymphadenopathy. CHEST: Air entry present , equal and bilateral, decreased at bases. CARDIOVASCULAR: S1 and S2 normal. No murmur. No gallop. Bradycardia present. ABDOMEN: Obese. LOWER EXTREMITIES: Bilateral 1+ edema present. Mild erythema of the lower extremities. SPINE: Nontender. SKIN: No petechiae. No rash. LEGEND MAKER: Alert and oriented x3. No focal, sensory and motor deficits. LABORATORY DATA: Sodium 140, potassium 3.4. Labs from 07/14/2017, creatinine 1.2. White count 9.8, hemoglobin 11, hematocrit 36.8, and platelet count 125. MEDICATIONS: Tylenol 650 q.6 hours p.r.n., Eliquis 2.5 mg b.i.d., aspirin 81 mg daily, Benadryl 25 mg q.6 hours p.r.n., Pepcid 20 mg p.o. b.i.d., Lasix 40 mg q. 12 hours IV, Robitussin p.r.n., Atarax 25 mg p.o. q.6 hours p.r.n., loratadine 10 mg daily, metoprolol 25 mg p.o. daily, and Zofran 4 mg IV q.4 hours p.r.n. ASSESSMENT: Valvular heart disease, pulmonary hypertension, aortic stenosis, mitral regurgitation, atrial fibrillation with bradycardia, hyperbilirubinemia, anemia, morbidly obese, and congestive cardiac failure. PLAN: Clinical condition has improved. We will continue IV Lasix 40 mg b.i.d. We will replete the potassium 20 mEq p.o. daily. Labs ordered for today. BMP and CBC stat. We will continue telemetry monitoring. She has chronic anemia. Hemoglobin and hematocrit has been stable. She has generalized itching related to hyperbilirubinemia. Bilirubin is declining. I will discontinue loratadine and she is getting Benadryl and Atarax too. We will continue transitional care evaluation. Discussed with the patient. She agreed with the plan. Naomi Roth MD
[2017-07-15 09:11] LABS: BLOOD UREA NITROGEN 26 mg/dL (7-21); CALCIUM 9.1 mg/dL (8.4-10.5); GFR AFRICAN-AMERICAN > 60; GFR NON-AFRICAN AMERICAN 53
[2017-07-15 09:15] LABS: BASO # 0.03 K/mm3 (0.0-2.0); BASO % 0.3 % (0.0-3.0); EOS # 0.5 (0.0-0.7); EOS % 5.6 % (1.5-5.0); GRAN # 6.76 (1.4-6.5); GRAN % 78.9 % (50.0-68.0); HEMOGLOBIN 11.7 g/dL (12.0-16.0); LYMPH # 0.8 (1.2-3.4); LYMPH % 9.3 % (22.0-35.0); MEAN CELL VOLUME 104.6 fl (80.0-105.0); MEAN CORPUSCULAR HEMOGLOBIN 31.4 pg (25.0-35.0); MEAN PLATELET VOLUME 11.5 fl (7.0-11.0); MONO # 0.5 (0.1-0.6); MONO % 5.9 % (1.0-6.0); RBC 3.73 10^6/uL (3.5-6.1); RED CELL DISTRIBUTION WIDTH 16.9 % (11.5-14.5); WHITE BLOOD COUNT 8.6 10^3/ul (4.5-11.0)
[2017-07-15] MEDS: Potassium Chloride 20 mEq ER Tab PO SCH (10:17)
[2017-07-15] MEDS: Nystatin 100,000 Units/gm Topical Pow(15 gm) TOP SCH ×2 (10:17→18:29)
[2017-07-15] MEDS: CELECOXIB 200 MG PO SCH (10:20)
--- NOTE | 2017-07-15 13:05 | PN ---
DATE: 07/15/2017 SUBJECTIVE: The patient is seen lying in bed on telemetry. Her main complaint remains persistent pruritus. She has mild relief with Benadryl use; however, her symptoms are fairly persistent. CURRENT MEDICATIONS: Remain aspirin, Benadryl, Eliquis 2.5 mg b.i.d., Celebrex, potassium, Lasix 40 mg IV q.12 hours, Lidex cream, metoprolol 25 mg daily, Pepcid. OBJECTIVE: GENERAL: She is an elderly woman who is comfortable except for her pruritus. She denies any dyspnea on rest. VITAL SIGNS: Her blood pressure is 110/56. Her pulse is 60, in atrial fibrillation. Respirations of 14. She is afebrile. HEENT: No JVD. CHEST: A few scattered rhonchi heard. HEART: PMI displaced laterally with systolic murmur present at the base radiating to the carotids. ABDOMEN: Soft, obese, nontender. Normoactive bowel sounds. EXTREMITIES: Mild cellulitic changes with trace ankle edema. DIAGNOSTIC DATA: Potassium is 3.3, BUN and creatinine 26 and 1.0. Glucose is 130. Hemoglobin and hematocrit 11.7 and 39.2 with a white count 8.6, platelet count 134,000. IMPRESSION: 1. 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 2. Severe mitral regurgitation. 3. Pruritus, etiology uncertain, need to suspect drug reaction. Most likely culprit would be furosemide. 4. Rest of problems as noted. RECOMMENDATIONS: 1. Lasix will be held for now. 2. Atarax will be added to her regimen in attempt to control her pruritus symptoms. Potassium supplement we will continue for today. Repeat blood work in the morning will be checked as per the request of the patient and family and a conservative management of her prosthetic aortic stenosis will be planned. We will continue to follow and make further recommendations as appropriate. Rajinder Smith MD
--- NOTE | 2017-07-15 23:25 | PN ---
DATE: 07/15/2017 SUBJECTIVE: This patient was seen and evaluated earlier today. The patient feels slightly better and his itching has also slightly gone down. PHYSICAL EXAMINATION VITAL SIGNS: Temperature 97.5, pulse 58, and blood pressure 134/64. HEENT: Atraumatic. Anicteric. NECK: Supple. HEART: S1 and S2 heard. LUNGS: Bilateral air entry present. ABDOMEN: Soft and descended. EXTREMITIES: Bilateral erythema and edema present. Erythematous rash is seen on entire body, appears slightly less prominent. LABORATORY DATA: Hemoglobin 11.7, hematocrit 39, WBC 8.6, and platelet 134. Chemistry: BUN 26, creatinine 1.0. LFTs done yesterday was showing downward trend. Bilirubin was 2.0. IMPRESSION: This is a 82 year-old patient admitted with cellulitis,obesity,PHT decompensated heart failure. The patient does have skin lesions, probably it is drug induced, clinically getting better now. The patient also was found to have elevated LFTs probably secondary to hepatic congestion and it was showing an improving trend. Follow up with the LFTs, and the sonogram done before was reviewed also. Thank you very much for allowing me to participate in the care of the patient. Fouzia Keller MD [facility]
[2017-07-16] MEDS: Potassium Chloride 20 mEq ER Tab PO SCH (10:00)
[2017-07-16] MEDS: CELECOXIB 200 MG PO SCH (10:00)
[2017-07-16] MEDS: Nystatin 100,000 Units/gm Topical Pow(15 gm) TOP SCH ×2 (10:00→18:24)
--- NOTE | 2017-07-16 11:34 | PN ---
DATE: 07/16/2017 SUBJECTIVE: The patient is seen lying in bed on telemetry. She continues to have some pruritus, but it feels somewhat improved. Lasix has been placed on hold. She continues with topical creams as well as Benadryl and Atarax use. She denies any dyspnea. She has had no edema. CURRENT MEDICATIONS: Include aspirin, Atarax p.r.n., Benadryl p.r.n., Eliquis 2.5 mg b.i.d., Celebrex, potassium, Lidex cream, Pepcid, and Robitussin. OBJECTIVE: GENERAL: She is an obese elderly woman. VITAL SIGNS: Blood pressure 136/72 with a pulse of 56 in atrial fibrillation, respirations are 14. She is afebrile. HEENT: No JVD. CHEST: A few scattered rhonchi. HEART: PMI displaced laterally with systolic murmur present at the base radiating to the carotids. ABDOMEN: Soft, obese, nontender. Normoactive bowel sounds. EXTREMITIES: Revealed mild chronic cellulitic changes with trace ankle edema. DIAGNOSTIC DATA: Morning blood work is pending. IMPRESSION: 1. 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 2. Severe mitral regurgitation. 3. Pruritus, possible drug reaction, furosemide remains on hold as this will be the most likely culprit. 4. Atrial fibrillation with controlled rate. Beta shayne remains on hold because of transient bradycardia. 5. Rest of the problems as noted. RECOMMENDATIONS: Current management will be planned. Strict monitoring of I's and O's will continue. If her skin reaction is truly secondary to Lasix, this should improve within 24 to 48 hours. If so, an alternative diuretic agent will need to be selected. We will continue to follow and make further recommendations as appropriate. Rajinder Smith MD [facility]
--- NOTE | 2017-07-16 17:47 | CP.PCM.PN ---
Subjective - Date & Time of Evaluation Date of Evaluation: 07/16/17 Time of Evaluation: 11:00 - Subjective Subjective: SUBJECTIVE: She is sitting in chair, comfortable, no acute distress. Itching has decreased. She has hyperbilirubinemia related to hepatic congestion. Shortness of breath has decreased. She is very short of breath on walking few steps. Son bedside. REVIEW OF SYSTEMS: As per HPI. Rest of 12-point review of systems reviewed negative. PHYSICAL EXAMINATION: GENERAL: Comfortable in bed in no acute distress, morbidly obese. VITAL SIGNS: reviewed. HEENT: Pallor positive. NECK: No lymphadenopathy. CHEST: Air entry present , equal and bilateral, decreased at bases. CARDIOVASCULAR: S1 and S2 normal. No murmur. No gallop. Bradycardia present. ABDOMEN: Obese. LOWER EXTREMITIES: Bilateral 1+ edema present. Mild erythema of the lower extremities. SPINE: Nontender. SKIN: No petechiae. No rash. BANK CREDIT CARD COLLECTION CLERK: Alert and oriented x3. No focal, sensory and motor deficits. LABORATORY DATA: Sodium 140, potassium 3.4. Labs from 07/14/2017, creatinine 1.2. White count 9.8, hemoglobin 11, hematocrit 36.8, and platelet count 125. MEDICATIONS: Tylenol 650 q.6 hours p.r.n., Eliquis 2.5 mg b.i.d., aspirin 81 mg daily, Benadryl 25 mg q.6 hours p.r.n., Pepcid 20 mg p.o. b.i.d., Lasix 40 mg q. 12 hours IV, Robitussin p.r.n., Atarax 25 mg p.o. q.6 hours p.r.n., loratadine 10 mg daily, metoprolol 25 mg p.o. daily, and Zofran 4 mg IV q.4 hours p.r.n. ASSESSMENT: Valvular heart disease, pulmonary hypertension, aortic stenosis, mitral regurgitation, atrial fibrillation bradycardia, hyperbilirubinemia, anemia, morbidly obese, congestive cardiac failure. PLAN: Clinical condition has improved. Lasix DC by cardiology. One dose IV lasix for SOB. We will replete the potassium 20 mEq p.o. daily. Bradycardia - improved. She has chronic anemia. Hemoglobin and hematocrit has been stable. She has generalized itching related to hyperbilirubinemia. Bilirubin is declining. she is getting Benadryl and Atarax with some relief transitional care evaluation, awaiting input. Discussed with the patient. Naomi Roth MD Objective - Vital Signs/Intake and Output Vital Signs (last 24 hours): Temp Pulse Resp BP Pulse Ox 98.7 F 59 L 18 159/67 H 98 07/16/17 11:33 07/16/17 14:00 07/16/17 11:33 07/16/17 14:45 07/16/17 06:00 Intake and Output: 07/16/17 07/16/17 06:59 18:59 Intake Total 300 600 Output Total 200 Balance 300 400 - Medications Medications: Current Medications Acetaminophen (Tylenol 325mg Tab) 975 mg PO ONCE PRN PRN Reason: Fever >100.4 F Apixaban (Eliquis) 2.5 mg PO BID [facility] PRN Reason: Protocol Last Admin: 07/16/17 10:00 Dose: 2.5 mg Aspirin (Aspirin Chewable) 81 mg PO DAILY [facility] Last Admin: 07/16/17 10:00 Dose: 81 mg Diphenhydramine HCl (Benadryl) 25 mg PO Q6 PRN PRN Reason: Itching / Pruritus Last Admin: 07/16/17 04:05 Dose: 25 mg Famotidine (Pepcid) 20 mg PO 1000,2200 [facility] Last Admin: 07/16/17 10:00 Dose: 20 mg Fluocinonide (Lidex 0.05% Cream) 0 gm TOP BID [facility] Last Admin: 07/16/17 10:00 Dose: Not Given Fluocinonide (Lidex 0.05% Oint) 0 gm TOP BID [facility] Last Admin: 07/16/17 10:00 Dose: 1 applic Furosemide (Lasix) 40 mg IVP Q12 [facility] Last Admin: 07/14/17 21:43 Dose: 40 mg Guaifenesin/Dextromethorphan (Robitussin Dm) 5 ml PO Q4H PRN PRN Reason: Cough Last Admin: 07/13/17 11:09 Dose: 5 ml Hydroxyzine HCl (Atarax) 25 mg PO Q6H PRN PRN Reason: Itching / Pruritus Last Admin: 07/16/17 10:00 Dose: 25 mg Metoprolol Tartrate (Lopressor) 25 mg PO DAILY [facility] - Celecoxib ([Celebrex] 200 Mg) 200 mg PO DAILY [facility] Last Admin: 07/16/17 10:00 Dose: Not Given Nystatin (Nystop Topical Powder) 0 gm TOP BID [facility] Last Admin: 07/16/17 10:00 Dose: 1 applic Ondansetron HCl (Zofran Inj) 4 mg IVP Q4H PRN PRN Reason: Nausea/Vomiting Potassium Chloride (K-Dur 20 Meq Er Tab) 40 meq PO DAILY [facility] Last Admin: 07/16/17 10:00 Dose: 40 meq - Labs Labs: 07/15/17 08:30 07/15/17 08:30 PT 20.1 SECONDS (9.4-12.5) H 07/14/17 06:00 INR 1.81 (0.93-1.08) H 07/14/17 06:00 APTT 30.1 Seconds (25.1-36.5) 07/11/17 10:00
--- NOTE | 2017-07-16 20:49 | PN ---
DATE: 07/16/2017 SUBJECTIVE: This patient was seen and evaluated earlier today. The patient appears more comfortable. The skin lesion also appears to be slightly improving. PHYSICAL EXAMINATION: VITAL SIGNS: Temperature is 98.7, pulse 59, and blood pressure is 159/67. HEENT: Atraumatic. Slightly jaundiced. HEART: S1 and S2 heard. LUNGS: Bilateral air entry present. ABDOMEN: Softly distended. Ascites. EXTREMITIES: Edema and also mild erythema present. SKIN: Maculopapular rashes appear to be slightly better. LABORATORY DATA: LFTs are showing downward trend. No repeat labs today. Potassium is 3.3. IMPRESSION: This is an 82-year-old patient with decompensated congestive heart failure with severe pulmonary hypertension, has history of cellulitis of antibiotics, developed skin rashes and off the antibiotics now, presently appears to be rashes improving. Most likely the cause for the hepatic dysfunction is secondary to hepatic congestion. Would follow up the LFTs. We will add on the LFTs to the a.m. labs sent. Thank you very much for allowing us to participate in the care of the patient. Fouzia Keller MD
[2017-07-16] MEDS: guaiFENesin DM 100 mg-10 mg/5 ml UD PO PRN (22:18)
[2017-07-17 06:15] VITALS: O2SAT 96
--- NOTE | 2017-07-17 08:15 | PN ---
DATE: 07/14/2017 SUBJECTIVE: The patient is seen lying in the bed on telemetry. She feels comfortable at the present time. She is complaining of intense pruritus. CURRENT MEDICATIONS: Include aspirin, Claritin, Eliquis 2.5 mg b.i.d. Celebrex, Lasix 40 mg q. 12 hours, metoprolol 25 mg daily, Pepcid 20 mg daily and Zofran. PHYSICAL EXAMINATION: GENERAL: She is an elderly woman, appears fairly comfortable for her persistent pruritus. VITAL SIGNS: Her blood pressure is 106/50 with a pulse of 56 and atrial fibrillation, and respirations are 14. She is afebrile. HEENT: No JVD. CHEST: Bilateral scattered rhonchi. HEART: PMI displaced laterally with a systolic murmur noted at the base radiating to the carotids. The systolic murmur is also present at the apex. ABDOMEN: Soft, nontender with normoactive bowel sounds. EXTREMITIES: No edema. Mild chronic cellulitic changes noted. SKIN: Extensive expropriations noted across her torso. DIAGNOSTIC DATA: Potassium is 3.4, BUN and creatinine 37 and 1.2, hemoglobin and hematocrit 11.1 and 36.8 with white count 9.8 and platelet count is 125,000. IMPRESSION: 1. Decompensated congestive heart failure, predominantly right sided. 2. Prosthetic acrotic valve stenosis. 3. The patient and family prefer continued conservative management at this time. 4. Severe mitral regurgitation. 5. Pulmonary hypertension. 6. Atrial fibrillation. 7. Pruritus etiology uncertain. RECOMMENDATIONS: Current IV diuretic therapy regimen, she will continue. Potassium replacement will be ordered. Conservative cardiac management will continue to be planned. We will continue to follow and make further recommendations as appropriate. Rajinder Smith MD
--- NOTE | 2017-07-17 09:25 | PN ---
DATE: 07/17/2017 SUBJECTIVE: The patient is seen lying in bed on telemetry. She continues to have significant pruritus. Otherwise, she feels fairly well. She remains in atrial fibrillation with controlled ventricular response, off beta-shayne therapy at the present time. CURRENT MEDICATIONS: Include aspirin, Atarax p.r.n., Benadryl p.r.n., Eliquis 2.5 mg b.i.d., Celebrex, Lidex cream and Pepcid. OBJECTIVE: GENERAL: She is an obese elderly woman. VITAL SIGNS: Blood pressure is 126/68 with a pulse of 60 in atrial fibrillation, respirations are 16. She is afebrile. HEENT: No JVD. CHEST: Bilateral scattered rhonchi. HEART: PMI displaced laterally with systolic murmur noted at the base radiating to the carotids. ABDOMEN: Soft, obese, nontender with bowel sounds. EXTREMITIES: Mild cellulitic changes with no edema. DIAGNOSTICS: The morning blood work is pending. IMPRESSION: 1. Decompensated congestive heart failure, acute on chronic, likely secondary to aortic valve prosthetic stenosis. 2. Severe mitral regurgitation. 3. Pulmonary retention. 4. Chronic atrial fibrillation. 5. Persistent pruritus not improved with holding of Lasix likely due to other causes. RECOMMENDATIONS: This time her diuretic therapy will be resumed. Continued sodium and fluid restriction are advised. Conservative management of her prosthetic valve stenosis is planned as per the request of the patient and family. We will continue all follow and make further recommendations as appropriate. Rajinder Smith MD
[2017-07-17] MEDS: Potassium Chloride 20 mEq ER Tab PO SCH (09:29)
[2017-07-17] MEDS: Nystatin 100,000 Units/gm Topical Pow(15 gm) TOP SCH (09:37)
[2017-07-17] MEDS: CELECOXIB 200 MG PO SCH (09:45)
[2017-07-17] MEDS: guaiFENesin DM 100 mg-10 mg/5 ml UD PO PRN (11:06)
[2017-07-17 11:19] LABS: BLOOD UREA NITROGEN 18 mg/dL (7-21)
[2017-07-17 11:20] LABS: ALB/GLOB RATIO 1.1 (1.1-1.8); ALT/SGPT 47 U/L (7-56); AST/SGOT 30 U/L (14-36); CALCIUM 9.5 mg/dL (8.4-10.5); GFR AFRICAN-AMERICAN > 60; GFR NON-AFRICAN AMERICAN 60; MAGNESIUM 1.8 mg/dL (1.7-2.2)
[2017-07-17 11:26] LABS: BASO # 0.09 K/mm3 (0.0-2.0); BASO % 1.1 % (0.0-3.0); EOS # 0.6 (0.0-0.7); EOS % 7.4 % (1.5-5.0); GRAN # 6.02 (1.4-6.5); GRAN % 70.7 % (50.0-68.0); HEMOGLOBIN 12.4 g/dL (12.0-16.0); LYMPH # 1.1 (1.2-3.4); LYMPH % 12.9 % (22.0-35.0); MEAN CELL VOLUME 105.2 fl (80.0-105.0); MEAN CORPUSCULAR HGB CONC 30.4 g/dl (31.0-37.0); MEAN PLATELET VOLUME 11.6 fl (7.0-11.0); MONO # 0.7 (0.1-0.6); MONO % 7.9 % (1.0-6.0); RBC 3.88 10^6/uL (3.5-6.1); RED CELL DISTRIBUTION WIDTH 16.7 % (11.5-14.5); WHITE BLOOD COUNT 8.5 10^3/ul (4.5-11.0)
[2017-07-17 12:21] VITALS: BP 110/57; PULSE 77; RESP 19; TEMP 98.4
[2017-07-17 12:34] LABS: HEPATITIS B SURFACE AG NEGATIVE (NEGATIVE)
[2017-07-17 12:40] LABS: HEPATITIS A IGM NEGATIVE (NEGATIVE); HEPATITIS B CORE AB Negative (NEGATIVE)
[2017-07-17 12:51] LABS: HEPATITIS C ANTIBODY Negative (NEGATIVE)
== END 2017-07-17 15:55 | DRG 292 ==
LOC: ED 09:30 → ERH 14:09 → OBSVTOIN 14:09 → ERH 16:08 → 3RNO 21:04 → 2RSO 07-12 17:04
PROVIDERS: ADMIT Internal Medicine; ATTEND Internal Medicine Medical Oncology
DX: I11.0 Hypertensive heart disease with heart failure (principal); N17.9 Acute kidney failure, unspecified; I27.20 Pulmonary hypertension, unspecified; L03.115 Cellulitis of right lower limb; E66.01 Morbid (severe) obesity due to excess calories; I08.3 Combined rheumatic disorders of mitral, aortic and tricuspid valves; E86.0 Dehydration; I48.2 Chronic atrial fibrillation; L03.116 Cellulitis of left lower limb; T82.857A Stenosis of other cardiac prosthetic devices, implants and grafts, initial encounter; I45.2 Bifascicular block; Z68.42 Body mass index [BMI] 45.0-49.9, adult; I50.33 Acute on chronic diastolic (congestive) heart failure; D64.9 Anemia, unspecified; E03.9 Hypothyroidism, unspecified; E78.00 Pure hypercholesterolemia, unspecified; E78.5 Hyperlipidemia, unspecified; J44.9 Chronic obstructive pulmonary disease, unspecified; K59.00 Constipation, unspecified; I25.10 Atherosclerotic heart disease of native coronary artery without angina pectoris; K76.1 Chronic passive congestion of liver; K76.89 Other specified diseases of liver; L29.9 Pruritus, unspecified; M19.90 Unspecified osteoarthritis, unspecified site; Y83.1 Surgical operation with implant of artificial internal device as the cause of abnormal reaction of the patient, or of later complication, without mention of misadventure at the time of the procedure; Z79.899 Other long term (current) drug therapy; R40.2412 Glasgow coma scale score 13-15, at arrival to emergency department

== ENCOUNTER 2017-07-17 15:55 | Inpatient (IN) | payer OTHER ==
[2017-07-17 18:42] VITALS: BMI 45.8
[2017-07-17] MEDS ORDERED: guaiFENesin DM 100 mg-10 mg/5 ml UD PO PRN (18:53)
[2017-07-17] MEDS ORDERED: Pneumococcal 23-Valent Vaccine IM ONE (20:41)
[2017-07-17] MEDS ORDERED: Influenza Vaccine 60 mcg/0.5 mL SYR (4YR UP) IM ONE (20:41)
[2017-07-18] MEDS: Potassium Chloride 20 mEq ER Tab PO SCH (09:00)
--- NOTE | 2017-07-18 09:56 | PN ---
DATE: 07/18/2017 SUBJECTIVE: The patient has no complaints of any chest pain. No shortness of breath. No headaches. PHYSICAL EXAMINATION: VITAL SIGNS: Temperature is 97.8, pulse is 52, blood pressure is 100/55, respirations are 18, and O2 saturation is 99%. GENERAL: The patient is lying in bed, flat, comfortable. HEENT: No oral lesion. Anicteric sclerae. Moist mucosa. NECK: No JVD, adenopathy, or thyromegaly. CARDIOVASCULAR: S1 and S2, regular. No murmurs, rubs, or gallops. LUNGS: Clear to auscultation bilaterally. No wheeze, rales, or rhonchi. ABDOMEN: Bowel sounds are positive, soft, nontender and nondistended. EXTREMITIES: No cyanosis, clubbing or edema. ASSESSMENT: 1. Acute congestive heart failure secondary to systolic dysfunction. 2. Aortic valve placement. 3. Mitral regurgitation. 4. Atrial fibrillation. 5. Pruritus. PLAN: The patient is currently comfortable. She is on Eliquis for her atrial fibrillation. She is going to be on potassium replacement. The patient is on Lopressor for her hypertension. The patient is on Pepcid. I will discontinue the patient's Zofran. She is getting Physical Therapy. I will change her Lasix over to p.o. She does not have much swelling. She is going to be on the Transitional Care Unit for rehab. Jose Eduardo Hamilton MD
[2017-07-18] MEDS: Nystatin 100,000 Units/gm Topical Pow(15 gm) TOP SCH ×2 (10:52→17:43)
--- NOTE | 2017-07-19 00:06 | PN ---
DATE: 07/18/2017 SUBJECTIVE: The patient is seen, sitting in a chair, on Transitional Care Unit. She is comfortable at the present time. She continues to have pruritus. She also complains of some constipation. CURRENT MEDICATIONS: Include aspirin, Atarax p.r.n., Benadryl p.r.n., Eliquis 2.5 mg b.i.d., Lasix 40 mg b.i.d., potassium supplement, Lidex cream, Pepcid 20 mg b.i.d., and Robitussin. PHYSICAL EXAMINATION GENERAL: She is an elderly woman, appears comfortable at the present time. VITAL SIGNS: Blood pressure is 120/60 with a pulse of 86, respirations are 14. She is afebrile. HEENT: No JVD. CHEST: Bilateral scattered rhonchi. HEART: Systolic murmur is noted at the base. ABDOMEN: Soft, nontender with normoactive bowel sounds. EXTREMITIES: No edema. Bilateral cellulitic changes are noted. LABORATORY DATA: No blood work pending from this morning. IMPRESSION: 1. Continued pruritus, etiology uncertain. 2. Recent decompensated congestive heart failure, clinically improved. 3. Prosthetic aortic valve stenosis, being managed conservatively as per the patient and family's wishes. 4. Chronic atrial fibrillation with slow ventricular rate, beta-shayne therapy on hold, remains on Eliquis therapy. 5. Rest of the problems as noted. RECOMMENDATIONS: Her current medications should be continued. Increase activities as tolerated. Continue conservative management of her prosthetic valve stenosis in a conservative fashion as per wishes of the patient and family. We will follow along as needed. Rajinder Smith MD [facility]
[2017-07-19] MEDS: Potassium Chloride 20 mEq ER Tab PO SCH (08:46)
[2017-07-19] MEDS: Nystatin 100,000 Units/gm Topical Pow(15 gm) TOP SCH ×2 (10:46→17:46)
[2017-07-20] MEDS: Potassium Chloride 20 mEq ER Tab PO SCH (08:37)
--- NOTE | 2017-07-20 10:31 | PN ---
DATE: SUBJECTIVE: The patient has no complaints of any chest pain, shortness of breath, headaches or dizziness. PHYSICAL EXAMINATION: VITAL SIGNS: Temperature is 98.9, pulse is 54, blood pressure is 104/51, and respirations are 18. GENERAL: The patient is lying in bed, flat, comfortable. HEENT: No oral lesion. Anicteric sclerae. Moist mucosa. NECK: No JVD, adenopathy, or thyromegaly. CARDIOVASCULAR: S1 and S2, regular. No murmurs, rubs, or gallops. LUNGS: Clear to auscultation bilaterally. No wheeze, rales, or rhonchi. ABDOMEN: Bowel sounds are positive, soft, nontender and nondistended. EXTREMITIES: No cyanosis, clubbing or edema. ASSESSMENT: 1. Acute congestive heart failure, secondary to systolic dysfunction, resolved. 2. Aortic valve replacement. 3. Mitral regurgitation. 4. Atrial fibrillation on apixaban. 5. Pruritus. PLAN: The patient is currently on Atarax for her pruritus. She is on aspirin. The patient is going to continue with Eliquis. She is on Lasix and potassium replacement. She is on Tylenol. She is getting physical therapy. She is being followed by Cardiology with Dr. Smith. Jose Eduardo Hamilton MD
[2017-07-20] MEDS: Nystatin 100,000 Units/gm Topical Pow(15 gm) TOP SCH ×2 (10:46→18:38)
[2017-07-21] MEDS: Potassium Chloride 20 mEq ER Tab PO SCH (08:39)
[2017-07-21] MEDS: Nystatin 100,000 Units/gm Topical Pow(15 gm) TOP SCH ×2 (10:55→18:14)
--- NOTE | 2017-07-22 07:36 | CP.PCM.PN ---
Subjective - Date & Time of Evaluation Date of Evaluation: 07/22/17 Time of Evaluation: 07:00 - Subjective Subjective: Stable in TCU. Less dyspnea, edema now minimal. Some brief ambulation with PT yesterday. V/S noted PE: Lungs: clear Cor: irreg., S1S2, VANDANA Abd.: obese, benign Ext.: min. edema and less celluitis Neuro.: alert Objective - Vital Signs/Intake and Output Vital Signs (last 24 hours): Temp Pulse Resp BP Pulse Ox 97.9 F 54 L 20 100/60 98 07/21/17 17:00 07/21/17 17:00 07/21/17 17:00 07/21/17 18:13 07/21/17 17:00 Intake and Output: 07/22/17 07/22/17 06:59 18:59 Output Total 550 Balance -550 - Medications Medications: Current Medications Acetaminophen (Tylenol 325mg Tab) 650 mg PO Q4H PRN; Protocol PRN Reason: Pain, Mild (1-3) Apixaban (Eliquis) 2.5 mg PO BID [facility] PRN Reason: Protocol Last Admin: 07/21/17 18:12 Dose: 2.5 mg Aspirin (Aspirin Chewable) 81 mg PO DAILY [facility] Last Admin: 07/21/17 10:55 Dose: 81 mg Diphenhydramine HCl (Benadryl) 25 mg PO Q6 PRN; Protocol PRN Reason: Itching / Pruritus Last Admin: 07/22/17 01:23 Dose: 25 mg Famotidine (Pepcid) 20 mg PO 1000,2200 [facility] PRN Reason: Protocol Last Admin: 07/21/17 22:30 Dose: 20 mg Fluocinonide (Lidex 0.05% Oint) 0 gm TOP BID [facility] PRN Reason: Protocol Last Admin: 07/21/17 18:14 Dose: 1 dose Furosemide (Lasix) 40 mg PO BID [facility] Last Admin: 07/21/17 18:13 Dose: 40 mg Guaifenesin/Dextromethorphan (Robitussin Dm) 5 ml PO Q4H PRN; Protocol PRN Reason: Cough Home Med (Home Med) 1 unit PO DAILY [facility] PRN Reason: Protocol Last Admin: 07/21/17 10:55 Dose: 1 unit Hydroxyzine HCl (Atarax) 25 mg PO Q6H PRN; Protocol PRN Reason: Itching / Pruritus Last Admin: 07/21/17 22:30 Dose: 25 mg Nystatin (Nystop Topical Powder) 0 gm TOP BID [facility] PRN Reason: Protocol Last Admin: 07/21/17 18:14 Dose: 1 dose Potassium Chloride (K-Dur 20 Meq Er Tab) 20 meq PO 0800 [facility] PRN Reason: Protocol Last Admin: 07/21/17 08:39 Dose: 20 meq Assessment and Plan - Assessment and Plan (Free Text) Assessment: Dyspnea/Edema/Cellulitis initially, all improved Pruritis, improved Remote AVR with severe prosthetic Echo: also, severe MR, TR and PH AF on Eliquis, RBBB/LAD Obesity/Very Sedentary Hypothyroidism GB Surgery DJD Thrombocytopenia Plan: Increase PT/Ambulation as catarino. Check BMP in AM Conservative care for valvular heart disease.
[2017-07-22] MEDS: Potassium Chloride 20 mEq ER Tab PO SCH (08:12)
--- NOTE | 2017-07-22 08:43 | PN ---
DATE: 07/23/2017 SUBJECTIVE: The patient has no complaints of any chest pain. No shortness of breath or headaches. She is doing well with physical therapy. PHYSICAL EXAMINATION: VITAL SIGNS: Temperature 97.9, pulse is 54, blood pressure 100/60, and respirations 20. HEENT: No oral lesion. Anicteric sclerae. Moist mucosa. NECK: No JVD, adenopathy, or thyromegaly. CARDIOVASCULAR: S1 and S2, regular. No murmurs, rubs, or gallops. LUNGS: Clear to auscultation bilaterally. No wheeze, rales, or rhonchi. ABDOMEN: Bowel sounds are positive, soft, nontender and nondistended. EXTREMITIES: No cyanosis, clubbing or edema. ASSESSMENT: 1. Acute congestive heart failure secondary to systolic dysfunction. 2. Aortic valve replacement. 3. Mitral regurgitation. 4. Atrial fibrillation. 5. Pruritus. PLAN: The patient had Benadryl from her provider. She is going to continue with potassium replacement. She is also on Lasix for her . She is on nystatin for her rash. The patient is receiving cough medications as needed. She is on Tylenol. She is doing well with Heart Healthy Diet. Jose Eduardo Hamilton MD
[2017-07-22] MEDS: Nystatin 100,000 Units/gm Topical Pow(15 gm) TOP SCH ×2 (11:04→17:20)
--- NOTE | 2017-07-23 07:57 | CP.PCM.PN ---
Subjective - Date & Time of Evaluation Date of Evaluation: 07/23/17 Time of Evaluation: 07:00 - Subjective Subjective: Stable in TCU. Less dyspnea, edema now minimal. Some brief ambulation with PT yesterday. Still itching. V/S noted PE: Lungs: clear Cor: irreg., S1S2, VANDANA Abd.: obese, benign Ext.: min. edema and less celluitis Neuro.: alert Objective - Vital Signs/Intake and Output Vital Signs (last 24 hours): Temp Pulse Resp BP Pulse Ox 97.7 F 51 L 18 116/61 96 07/23/17 06:00 07/23/17 06:00 07/23/17 06:00 07/23/17 06:00 07/23/17 06:00 - Medications Medications: Current Medications Acetaminophen (Tylenol 325mg Tab) 650 mg PO Q4H PRN; Protocol PRN Reason: Pain, Mild (1-3) Apixaban (Eliquis) 2.5 mg PO BID [facility] PRN Reason: Protocol Last Admin: 07/22/17 17:19 Dose: 2.5 mg Aspirin (Aspirin Chewable) 81 mg PO DAILY [facility] Last Admin: 07/22/17 11:02 Dose: 81 mg Diphenhydramine HCl (Benadryl) 25 mg PO Q6 PRN; Protocol PRN Reason: Itching / Pruritus Last Admin: 07/22/17 01:23 Dose: 25 mg Famotidine (Pepcid) 20 mg PO 1000,2200 [facility] PRN Reason: Protocol Last Admin: 07/22/17 21:30 Dose: 20 mg Fluocinonide (Lidex 0.05% Oint) 0 gm TOP BID [facility] PRN Reason: Protocol Last Admin: 07/22/17 17:20 Dose: 1 dose Furosemide (Lasix) 40 mg PO BID [facility] Last Admin: 07/22/17 17:19 Dose: 40 mg Guaifenesin/Dextromethorphan (Robitussin Dm) 5 ml PO Q4H PRN; Protocol PRN Reason: Cough Home Med (Home Med) 1 unit PO DAILY [facility] PRN Reason: Protocol Last Admin: 07/22/17 11:02 Dose: 1 unit Hydroxyzine HCl (Atarax) 25 mg PO Q6H PRN; Protocol PRN Reason: Itching / Pruritus Last Admin: 07/23/17 00:49 Dose: 25 mg Nystatin (Nystop Topical Powder) 0 gm TOP BID [facility] PRN Reason: Protocol Last Admin: 07/22/17 17:20 Dose: 1 dose Potassium Chloride (K-Dur 20 Meq Er Tab) 20 meq PO 0800 [facility] PRN Reason: Protocol Last Admin: 07/22/17 08:12 Dose: 20 meq Assessment and Plan - Assessment and Plan (Free Text) Assessment: Dyspnea/Edema/Cellulitis initially, all improved Pruritis, improved Remote AVR with severe prosthetic Echo: also, severe MR, TR and PH AF on Eliquis, RBBB/LAD Obesity/Very Sedentary Hypothyroidism GB Surgery DJD Thrombocytopenia Plan: Increase PT/Ambulation as catarino. Check BMP - pending Conservative care for valvular heart disease.
[2017-07-23 08:14] LABS: CALCIUM 9.1 mg/dL (8.4-10.5)
[2017-07-23] MEDS: Potassium Chloride 20 mEq ER Tab PO SCH (08:36)
[2017-07-23] MEDS: Nystatin 100,000 Units/gm Topical Pow(15 gm) TOP SCH ×2 (11:00→17:16)
[2017-07-24 07:03] VITALS: O2SAT 98
[2017-07-24] MEDS: Potassium Chloride 20 mEq ER Tab PO SCH (08:49)
[2017-07-24] MEDS: Nystatin 100,000 Units/gm Topical Pow(15 gm) TOP SCH ×2 (10:39→17:40)
[2017-07-24 17:37] VITALS: PULSE 50; RESP 16; TEMP 97.2
[2017-07-25] MEDS: Potassium Chloride 20 mEq ER Tab PO SCH (10:20)
[2017-07-25] MEDS: Nystatin 100,000 Units/gm Topical Pow(15 gm) TOP SCH (10:21)
[2017-07-25 10:24] VITALS: BP 104/57
--- NOTE | 2017-07-26 10:13 | DS ---
CHIEF COMPLAINT AND HISTORY OF PRESENT ILLNESS: This is an 82-year-old female who was in the Transitional Care Unit for rehab. The patient has no complaints of any headache or dizziness. She has been doing fairly well with physical therapy. She is going to be discharged to home. PHYSICAL EXAMINATION: VITAL SIGNS: Temperature is 97.2, pulse of 50, blood pressure 104/57, and respirations 16. GENERAL: The patient is lying in bed, flat, comfortable. HEENT: No oral lesion. Anicteric sclerae. Moist mucosa. NECK: No JVD, adenopathy, or thyromegaly. CARDIOVASCULAR: S1 and S2, regular. No murmurs, rubs, or gallops. LUNGS: Clear to auscultation bilaterally. No wheeze, rales, or rhonchi. ABDOMEN: Bowel sounds are positive, soft, nontender and nondistended. EXTREMITIES: No cyanosis, clubbing or edema. ASSESSMENT: 1. Acute congestive heart failure secondary to systolic dysfunction. 2. Aortic valve replacement. 3. Mitral regurgitation. 4. Atrial fibrillation. 5. Pruritus. PLAN: The patient is currently comfortable. She is given flu shot and pneumonia shot. She is being followed by Dr. Toro. She is going to continue conservative management for her heart disease. The patient is on Nystatin for rash. She is on heart healthy diet. FOLLOWUP: Follow with primary care doctor in 2 to [address] Toro in 1 to 2 weeks. CONDITION: Stable. ACTIVITIES: Increase as tolerated. Jose Eduardo Hamilton MD
== END 2017-07-25 15:30 | disposition home or self-care (01) | DRG 292 ==
LOC: TRCU 15:55
PROVIDERS: ADMIT Internal Medicine Medical Oncology; ATTEND Internal Medicine Nephrology
PROC: F07Z9FZ Gait Training/Functional Ambulation Treatment using Assistive, Adaptive, Supportive or Protective Equipment (ICD-10-PCS; principal; 2017-07-18)
PROC: F07M6ZZ Therapeutic Exercise Treatment of Musculoskeletal System - Whole Body (ICD-10-PCS; 2017-07-18)
PROC: F08Z1ZZ Dressing Techniques Treatment (ICD-10-PCS; 2017-07-18)
PROC: F08Z2ZZ Grooming/Personal Hygiene Treatment (ICD-10-PCS; 2017-07-18)
PROC: F08Z0ZZ Bathing/Showering Techniques Treatment (ICD-10-PCS; 2017-07-18)
PROC: F08Z0ZZ Bathing/Showering Techniques Treatment (ICD-10-PCS; 2017-07-18)
PROC: F08Z4ZZ Home Management Treatment (ICD-10-PCS; 2017-07-18)
DX: I50.21 Acute systolic (congestive) heart failure (principal); L03.90 Cellulitis, unspecified; D69.6 Thrombocytopenia, unspecified; I48.2 Chronic atrial fibrillation; T82.857A Stenosis of other cardiac prosthetic devices, implants and grafts, initial encounter; I34.0 Nonrheumatic mitral (valve) insufficiency; Z95.2 Presence of prosthetic heart valve; L29.9 Pruritus, unspecified; E03.9 Hypothyroidism, unspecified; E66.9 Obesity, unspecified; I45.10 Unspecified right bundle-branch block; K59.00 Constipation, unspecified; M19.90 Unspecified osteoarthritis, unspecified site; Y83.1 Surgical operation with implant of artificial internal device as the cause of abnormal reaction of the patient, or of later complication, without mention of misadventure at the time of the procedure

== ENCOUNTER 2017-08-22 14:39 | Inpatient (IN) | payer MEDICARE, OTHER ==
[2017-08-22 14:40] VITALS: BMI 47.7
--- NOTE | 2017-08-22 15:44 | ED PDOC ---
Arrival/HPI - General Chief Complaint: Abnormal Labs Time Seen by Provider: 08/22/17 14:57 Historian: Patient - History of Present Illness Narrative History of Present Illness (Text): 82yo female, history of hypertension, hyperlipidemia, COPD, CHF, A-Fib, hypothyroidism, sent to ER by her PMD for evaluation due to "abnormal lab" results. She reports bilateral foot pain and states she has had drainage from her right foot for the past couple weeks. Patient reports she has been feeling fatigued as well. She denies any abdominal pain, shortness of breath, bloody stools. No other medical complaints. Past Medical History - Provider Review Nursing Documentation Reviewed: Yes - Infectious Disease Hx of Infectious Diseases: None - Reproductive Menopause: Yes - Past Medical History Past Medical History: Non-Contributing - Cardiac Hx Cardiac Disorders: Yes Hx Congestive Heart Failure: Yes Hx Hypertension: Yes - Pulmonary Hx Chronic Obstructive Pulmonary Disease (COPD): Yes - Neurological Hx Neurological Disorder: No - HEENT Hx HEENT Disorder: No - Renal Hx Renal Failure: Yes - Endocrine/Metabolic Hx Hypothyroidism: Yes - Hematological/Oncological Hx Blood Disorders: No - Integumentary Hx Dermatological Disorder: Yes - Musculoskeletal/Rheumatological Hx Arthritis: Yes - Gastrointestinal Hx Gastrointestinal Disorders: No - Genitourinary/Gynecological Hx Genitourinary Disorders: No - Psychiatric Hx Psychophysiologic Disorder: No Hx Substance Use: No - Surgical History Hx Valve Replacement: Yes (Aortic) - Anesthesia Hx Anesthesia: Yes Hx Anesthesia Reactions: No Hx Malignant Hyperthermia: No Family/Social History - Physician Review Nursing Documentation Reviewed: Yes Family/Social History: No Known Family HX Smoking Status: Never Smoked Hx Alcohol Use: No Hx Substance Use: No Allergies/Home Meds Allergies/Adverse Reactions: Allergies No Known Allergies Allergy (Verified 08/22/17 15:08) Home Medications: Home Meds Medication Instructions Recorded Confirmed Celecoxib [Celebrex] 200 mg PO DAILY 07/11/17 08/22/17 Furosemide [Lasix] 40 mg PO BID 07/11/17 08/22/17 Aspirin [Ecotrin] 81 mg PO DAILY 08/22/17 08/22/17 Atorvastatin [Lipitor] 10 mg PO DIN 08/22/17 08/22/17 Levothyroxine [Synthroid] 0.112 mg PO DAILY 08/22/17 08/22/17 Metoprolol Succinate [Toprol Xl] 50 mg PO DAILY 08/22/17 08/22/17 Potassium 20 20 meq PO DAILY 08/22/17 08/22/17 Pregabalin [Lyrica] 50 mg PO DAILY 08/22/17 08/22/17 Vit D 5,000 iu PO DAILY 08/22/17 08/22/17 Review of Systems - Review of Systems Constitutional: Fatigue. absent: Fevers Eyes: absent: Vision Changes ENT: absent: Hearing Changes Respiratory: absent: SOB, Cough Cardiovascular: Edema. absent: Chest Pain, JACOBS Gastrointestinal: absent: Abdominal Pain, Diarrhea, Nausea, Vomiting, Appetite Changes, Hematochezia, Hematemesis, Anorexia, Food Intolerance Genitourinary Female: absent: Dysuria, Frequency, Hematuria Musculoskeletal: absent: Arthralgias, Back Pain Skin: absent: Rash Neurological: absent: Headache, Dizziness, Focal Weakness Endocrine: absent: Polyuria Hemo/Lymphatic: absent: Easy Bleeding Physical Exam - Physical Exam Narrative Physical Exam (Text): Head: Atraumatic. Normocephalic. Eyes: PERRL. EOMI. Conjunctivae are not pale. ENT: Mucous membranes are moist and intact. Oropharynx is clear and symmetric. Neck: Supple. Full ROM. No JVD. No lymphadenopathy. Cardiovascular: Regular rate. Regular rhythm. No murmurs, rubs, or gallops. Distal pulses are 2+ and symmetric. Pulmonary/Chest: No evidence of respiratory distress. Clear to auscultation bilaterally. No wheezing, rales or rhonchi. Abdominal: Soft and non-distended. There is no tenderness. No rebound, guarding, or rigidity. No organomegaly. Good bowel sounds. Back: No CVA tenderness. Extremities: No edema. No cyanosis. No clubbing. Full range of motion in all extremities. No calf tenderness. Skin: Skin is warm and dry. No petechiae. No purpura. Neurological: Alert, awake, and oriented to person, place, time, and situation. Normal speech. Psychiatric: Good eye contact. Normal interaction, affect, and behavior. Vital Signs Reviewed: Yes Vital Signs Temp Pulse Resp BP Pulse Ox 08/22/17 18:39 60 18 123/68 99 08/22/17 16:40 55 L 18 114/60 100 08/22/17 15:03 98.5 F 66 20 103/54 L 96 08/22/17 14:40 62 18 124/65 100 Temperature: Afebrile Pulse: Irregular Appearance: Positive for: Non-Toxic, Comfortable Pain Distress: None Mental Status: Positive for: Alert and Oriented X 3 - Systems Exam Head: Present: Atraumatic, Normocephalic Pupils: Present: PERRL Extroacular Muscles: Present: EOMI Conjunctiva: Present: Icteric Mouth: Present: Dry, Normal Lips. No: Drooling Pharnyx: No: ERYTHEMA, TONSILS ENLARGED, Strider Nose (Internal): Present: Normal Inspection Neck: Present: Normal Range of Motion. No: Meningeal Signs, MIDLINE TENDERNESS Respiratory/Chest: Present: Clear to Auscultation. No: Respiratory Distress Cardiovascular: Present: Regular Rate and Rhythm, Murmurs Abdomen: Present: Distention, Normal Bowel Sounds. No: Tenderness, Peritoneal Signs, McBurney's Point Tender Rectal: No: Rectal Tenderness, Gross Blood Breast/Axillary: No: Discoloration Back: No: CVA Tenderness Upper Extremity: No: Cyanosis Lower Extremity: Present: Edema, NORMAL PULSES, Neurovascularly Intact. No: CALF TENDERNESS Neurological: Present: Motor Func Grossly Intact, Normal Sensory Function Skin: Present: Pale, Other (jaundiced) Psychiatric: Present: Alert, Normal Insight, Normal Concentration Medical Decision Making ED Course and Treatment: Impression: Evaluation due to "abnormal labs" Differential Diagnosis included but are not limited to: liver disease, hepatitis, medication effect, infection Plan: -- EKG -- Labs -- Urinalysis -- Reassess and disposition Prior Visits: Notes and results from previous visits were reviewed. Patient was last seen in the emergency department on 07/11/17 and was hospitalized for acute renal failure, dehydration. Progress Notes: Patient on examination DENIES ANY SYMPTOMS aside from fatigue. BP stable. No chest pain or sob. She is icteric and jaundiced although denies any abdominal pain. The patient's bilirubin is elevated. Anemia noted but no melena or active bleeding noted. The patient with no ruq pain or peritoneal signs. Case d/w Dr. Marnie Hamilton, will admit for jaundice, consult GI. Patient has prior hx of afib. No tachycardia noted. CXR with cardiomegaly, mild pvc although patient with no hypoxia or respiratory distress. - Lab Interpretations Lab Results: 08/22/17 16:10 08/22/17 16:10 Lab Results 08/22/17 16:10: Sodium 140, Potassium 4.4, Chloride 103, Carbon Dioxide 26, Anion Gap 16, BUN 40 H, Creatinine 1.4 H, Est GFR ( Amer) 43, Est GFR ( Non-Af Amer) 36, Random Glucose 166 H, Calcium 10.4, Total Bilirubin 4.3 H, AST 33, ALT 35, Alkaline Phosphatase 99, Total Protein 6.1, Albumin 3.4, Globulin 2.7, Albumin/Globulin Ratio 1.2, Amylase < 30 L, Lipase 92 08/22/17 16:10: PT 21.7 H, INR 1.88 H, APTT 32.3 08/22/17 16:10: WBC 5.4 D, RBC 3.44 L, Hgb 10.7 L, Hct 35.6 L, MCV 103.5, MCH 31.1, MCHC 30.1 L, RDW 17.5 H, Plt Count 121, MPV 11.1 H, Gran % 67.7, Lymph % ( Auto) 15.7 L, [place]pson % (Auto) 12.9 H, Eos % (Auto) 2.2, Baso % (Auto) 1.5, Gran # 3.66, Lymph # (Auto) 0.9 L, Sampson # (Auto) 0.7 H, Eos # (Auto) 0.1, Baso # (Auto ) 0.08 - EKG Interpretation EKG Interpretation (Text): 08/22/17 21:41 EKG atrial fibrillation rarte of 50 with right bundle branch block Interpreted by ED Physician: Yes Type: 12 lead EKG - Medication Orders Current Medication Orders: Apixaban (Eliquis) 2.5 mg PO BID [facility] PRN Reason: Protocol Aspirin (Ecotrin) 81 mg PO DAILY [facility] Atorvastatin Calcium (Lipitor) 10 mg PO DIN [facility] Furosemide (Lasix) 40 mg PO BID [facility] Levothyroxine Sodium (Synthroid) 112 mcg PO 0600 [facility] Metoprolol Succinate (Toprol Xl) 50 mg PO DAILY [facility] Potassium Chloride (K-Dur 20 Meq Er Tab) 20 meq PO BRK [facility] Pregabalin (Lyrica) 50 mg PO DAILY [facility] - Scribe Statement The provider has reviewed the documentation as recorded by the Jordy Lui Provider Scribe Attestation: All medical record entries made by the Scribe were at my direction and personally dictated by me. I have reviewed the chart and agree that the record accurately reflects my personal performance of the history, physical exam, medical decision making, and the department course for this patient. I have also personally directed, reviewed, and agree with the discharge instructions and disposition. Disposition/Present on Arrival - Present on Arrival Any Indicators Present on Arrival: No History of DVT/PE: No History of Uncontrolled Diabetes: No Urinary Catheter: No History of Decub. Ulcer: No History Surgical Site Infection Following: CABG - Mediastinitis - Disposition Have Diagnosis and Disposition been Completed?: Yes Diagnosis: Jaundice, Elevated bilirubin, Anemia, Renal insufficiency Disposition: HOSPITALIZED Disposition Time: 16:00 Patient Plan: Admission Patient Problems: Current Active Problems Problem Status Onset Anemia Acute Elevated bilirubin Acute Jaundice Acute Renal insufficiency Acute Condition: FAIR
[2017-08-22 16:30] LABS: BASO # 0.08 K/mm3 (0.0-2.0); BASO % 1.5 % (0.0-3.0); EOS # 0.1 (0.0-0.7); EOS % 2.2 % (1.5-5.0); GRAN # 3.66 (1.4-6.5); GRAN % 67.7 % (50.0-68.0); HEMOGLOBIN 10.7 g/dL (12.0-16.0); LYMPH # 0.9 (1.2-3.4); LYMPH % 15.7 % (22.0-35.0); MEAN CELL VOLUME 103.5 fl (80.0-105.0); MEAN CORPUSCULAR HEMOGLOBIN 31.1 pg (25.0-35.0); MEAN CORPUSCULAR HGB CONC 30.1 g/dl (31.0-37.0); MEAN PLATELET VOLUME 11.1 fl (7.0-11.0); MONO # 0.7 (0.1-0.6); MONO % 12.9 % (1.0-6.0); RBC 3.44 10^6/uL (3.5-6.1); RED CELL DISTRIBUTION WIDTH 17.5 % (11.5-14.5); WHITE BLOOD COUNT 5.4 10^3/ul (4.5-11.0)
[2017-08-22 16:38] LABS: INR 1.88 (0.93-1.08); PARTIAL THROMBOPLASTIN TIME 32.3 Seconds (25.1-36.5); PROTHROMBIN TIME 21.7 SECONDS (9.4-12.5)
[2017-08-22 16:51] LABS: ALB/GLOB RATIO 1.2 (1.1-1.8); ALBUMIN 3.4 g/dL (3.0-4.8); ALT/SGPT 35 U/L (7-56); AMYLASE < 30 U/L (35-125); AST/SGOT 33 U/L (14-36); BLOOD UREA NITROGEN 40 mg/dL (7-21); CALCIUM 10.4 mg/dL (8.4-10.5); GFR AFRICAN-AMERICAN 43; GFR NON-AFRICAN AMERICAN 36; LIPASE 92 U/L (23-300)
[2017-08-22 23:25] LABS: URINE BILIRUBIN NEGATIVE (NEGATIVE); URINE BLOOD SMALL (NEGATIVE); URINE GLUCOSE (UA) NEGATIVE (NEGATIVE); URINE LEUKOCYTE ESTERASE LARGE Leu/uL (NEGATIVE); URINE NITRATE NEGATIVE (NEGATIVE); URINE PROTEIN 100 mg/dL (<30 mg/dL); URINE UROBILINOGEN 0.2 E.U./dL (<1 E.U./dL)
[2017-08-22 23:44] LABS: URINE APPEARANCE SL CLOUDY (CLEAR); URINE COLOR YELLOW (YELLOW)
[2017-08-22 23:53] LABS: URINE BACTERIA MANY (NEG); URINE WBC 15 - 20 /hpf (0-6)
--- NOTE | 2017-08-23 00:33 | CARD ---
APPROVED REPORT EKG Measurement Heart [id number] <Conclusion> Atrial fibrillation with slow ventricular response Left axis deviation Right bundle branch block Abnormal ECG
[2017-08-23] MEDS ORDERED: Pneumococcal 23-Valent Vaccine IM ONE (04:26)
[2017-08-23] MEDS ORDERED: Influenza Vaccine 60 mcg/0.5 mL SYR (4YR UP) IM ONE (04:26)
[2017-08-23] MEDS ORDERED: Morphine 2 mg/ml ISec IVP ONE (04:45)
[2017-08-23] MEDS: Levothyroxine 112 MCG TAB PO SCH (06:41)
[2017-08-23 07:31] LABS: ALB/GLOB RATIO 1.2 (1.1-1.8); ALBUMIN 3.1 g/dL (3.0-4.8)
--- NOTE | 2017-08-23 08:45 | RAD ---
HISTORY: admission COMPARISON: 07/11/2017 FINDINGS: LUNGS: No active pulmonary disease. PLEURA: No significant pleural effusion identified, no pneumothorax apparent. CARDIOVASCULAR: Mild cardiomegaly. Sternotomy wires. Cardiac valvular prosthesis. OSSEOUS STRUCTURES: No significant abnormalities. VISUALIZED UPPER ABDOMEN: Normal. OTHER FINDINGS: None. IMPRESSION: No active disease.
[2017-08-23 09:16] LABS: BASO # 0.08 K/mm3 (0.0-2.0); BASO % 1.3 % (0.0-3.0); EOS # 0.1 (0.0-0.7); EOS % 1.6 % (1.5-5.0); GRAN # 3.93 (1.4-6.5); GRAN % 64.5 % (50.0-68.0); HEMOGLOBIN 10.3 g/dL (12.0-16.0); LYMPH # 1.2 (1.2-3.4); MEAN CORPUSCULAR HEMOGLOBIN 31.5 pg (25.0-35.0); MEAN CORPUSCULAR HGB CONC 30.3 g/dl (31.0-37.0); MEAN PLATELET VOLUME 12.5 fl (7.0-11.0); MONO # 0.8 (0.1-0.6); MONO % 13.6 % (1.0-6.0); RBC 3.27 10^6/uL (3.5-6.1); RED CELL DISTRIBUTION WIDTH 17.3 % (11.5-14.5); WHITE BLOOD COUNT 6.1 10^3/ul (4.5-11.0)
[2017-08-23] MEDS: Potassium Chloride 20 mEq ER Tab PO SCH (10:50)
--- NOTE | 2017-08-23 10:50 | US ---
HISTORY: eleated Bili COMPARISON: None. TECHNIQUE: Sonographic evaluation of the abdomen. FINDINGS: LIVER: Measures 15.8 cm. Diffusely increased echogenicity of the liver parenchyma. Consistent with fatty infiltration. Smooth contour. No mass. No biliary ductal dilatation. GALLBLADDER: Status post cholecystectomy COMMON BILE DUCT: Measures 7 mm. Minimal dilatation consistent with patient age and prior cholecystectomy. PANCREAS: Unremarkable as visualized. No mass. No ductal dilatation. RIGHT KIDNEY: Measures 10.1cm. Normal echogenicity. No calculus, mass, or hydronephrosis. LEFT KIDNEY: Measures 10.1cm. Normal echogenicity. No calculus, mass, or hydronephrosis. SPLEEN: Normal in size and contour. No mass. AORTA: No aneurysmal dilatation. IVC: Unremarkable. OTHER FINDINGS: None. IMPRESSION: Fatty liver. Status post cholecystectomy. Otherwise unremarkable examination.
[2017-08-23] MEDS: Metoprolol Succinate 50 mg XL Tab PO SCH (10:54)
--- NOTE | 2017-08-23 11:46 | CP.PCM.CON ---
<Pennie Tate - Last Filed: 08/23/17 11:43> History of Present Illness - History of Present Illness History of Present Illness: 82 year old female patient with PMHx of hypertension, hyperlipidemia, COPD, CHF , A-Fib, hypothyroidism was seen and evaluated at bedside for right ankle and heel pain. Patient reports that her PMD sent her to the hospital yesterday because she had abnormal lab values. Patient reports that she has pain in her right ankle and heel. Patient reports that she has a little sore around the knee which drains. Patient denies of doing any treatment for the wounds. Patient denies of any recent F/N/V/C/SOB/CP/headache/diarrhea. Patient denies of any other pedal complains at this time. Review of Systems - Constitutional Constitutional: As Per HPI Past Patient History - Infectious Disease Hx of Infectious Diseases: None - Past Social History Smoking Status: Never Smoked - CARDIAC Hx Cardiac Disorders: Yes Hx Congestive Heart Failure: Yes Hx Hypertension: Yes - PULMONARY Hx Chronic Obstructive Pulmonary Disease (COPD): Yes - NEUROLOGICAL Hx Neurological Disorder: No - HEENT Hx HEENT Problems: No - RENAL Hx Renal Failure: Yes - ENDOCRINE/METABOLIC Hx Hypothyroidism: Yes - HEMATOLOGICAL/ONCOLOGICAL Hx Blood Disorders: No - INTEGUMENTARY Hx Dermatological Problems: Yes - MUSCULOSKELETAL/RHEUMATOLOGICAL Hx Arthritis: Yes Hx Falls: Yes - GASTROINTESTINAL Hx Gastrointestinal Disorders: No - GENITOURINARY/GYNECOLOGICAL Hx Genitourinary Disorders: No - PSYCHIATRIC Hx Psychophysiologic Disorder: No Hx Substance Use: No - SURGICAL HISTORY Hx Valve Replacement: Yes (Aortic) - ANESTHESIA Hx Anesthesia: Yes Hx Anesthesia Reactions: No Hx Malignant Hyperthermia: No Meds Allergies/Adverse Reactions: Allergies Allergy/AdvReac Type Severity Reaction Status Date / Time No Known Allergies Allergy Verified 08/25/17 22:30 - Medications Medications: Current Medications Apixaban (Eliquis) 2.5 mg PO BID [facility] PRN Reason: Protocol Aspirin (Ecotrin) 81 mg PO DAILY [facility] Last Admin: 08/23/17 10:50 Dose: 81 mg Atorvastatin Calcium (Lipitor) 10 mg PO DIN [facility] Levothyroxine Sodium (Synthroid) 112 mcg PO 0600 [facility] Last Admin: 08/23/17 06:41 Dose: 112 mcg Metoprolol Succinate (Toprol Xl) 50 mg PO DAILY [facility] Last Admin: 08/23/17 10:54 Dose: Not Given Oxycodone/Acetaminophen (Percocet 5/325 Mg Tab) 1 tab PO Q4H PRN PRN Reason: Pain, moderate (4-7) Stop: 08/26/17 10:01 Potassium Chloride (K-Dur 20 Meq Er Tab) 20 meq PO BRK [facility] Last Admin: 08/23/17 10:50 Dose: 20 meq Pregabalin (Lyrica) 50 mg PO DAILY [facility] Physical Exam - Constitutional Appears: Well, Non-toxic, No Acute Distress - Extremities Exam Additional comments: Bilateral LE exam: VASC: DP/PT pulses are very faintly palpable b/l, Cap refill time: < 3 sec to all digits, Temp gradient: warm to cool from proximal to distal, Skin tension lines noted which shows resolved edema, +1 Pitting edema noted on the medial leg b/l DERM: Stage 1 pre-ulcerative lesion noted on right plantar heel with small fissure on the lateral aspect of the heel, wound measuring approximately 0.5 cm x 0.5 cm x 0.1 cm noted on the distal lateral aspect of the right knee, active serous drainage noted from the proximal wound, no erythema, no tunneling, no undermining, no interdigital maceration, no clinical suspicion of active infection NEURO: Protective sensation mildly diminished ORTHO: Pain on active and passive ROM at the ankle joint, pain on palpation of the plantar lateral heel at the level of the fissure, pain on palpation of the right calf - Neurological Exam Neurological exam: Alert, Oriented x3 - Psychiatric Exam Psychiatric exam: Normal Affect, Normal Mood Results - Vital Signs Recent Vital Signs: Last Vital Signs Temp 97.9 F 08/23/17 08:00 Pulse 56 L 08/23/17 08:00 Resp 22 08/23/17 08:00 BP 100/59 L 08/23/17 10:54 Pulse Ox 93 L 08/23/17 08:00 - Labs Result Diagrams: 08/23/17 07:00 08/23/17 06:30 Labs: Laboratory Results - last 24 hr 08/22/17 08/23/17 08/23/17 23:13 06:30 06:30 WBC Cancelled RBC Cancelled Hgb Cancelled Hct Cancelled MCV Cancelled MCH Cancelled MCHC Cancelled RDW Cancelled Plt Count Cancelled MPV Cancelled Gran % Cancelled Lymph % (Auto) Cancelled [place] % (Auto) Cancelled Eos % (Auto) Cancelled Baso % (Auto) Cancelled Gran # Cancelled Lymph # (Auto) Cancelled [place] # (Auto) Cancelled Eos # (Auto) Cancelled Baso # (Auto) Cancelled Retic Count Sodium 141 Potassium 4.8 Chloride 104 Carbon Dioxide 26 Anion Gap 16 BUN 39 H Creatinine 1.4 H Est GFR ( Amer) 43 Est GFR (Non-Af Amer) 36 Random Glucose 138 H Calcium 10.0 Total Bilirubin 4.5 H Direct Bilirubin AST 50 H D ALT 48 Alkaline Phosphatase 93 Lactate Dehydrogenase 1112 H Total Protein 5.7 L Albumin 3.1 Globulin 2.6 Albumin/Globulin Ratio 1.2 Urine Color Yellow Urine Appearance Sl cloudy Urine pH 6.0 Ur Specific Atkins >= 1.030 Urine Protein 100 H Urine Glucose (UA) Negative Urine Ketones Negative Urine Blood Small H Urine Nitrate Negative Urine Bilirubin Negative Urine Urobilinogen 0.2 Ur Leukocyte Esterase Large H Urine RBC 2 - 5 Urine WBC 15 - 20 Ur Epithelial Cells 4 - 5 Urine Bacteria Many 08/23/17 08/23/17 06:30 07:00 WBC 6.1 RBC 3.27 L Hgb 10.3 L Hct 34.0 L MCV 104.0 MCH 31.5 MCHC 30.3 L RDW 17.3 H Plt Count 123 MPV 12.5 H Gran % 64.5 Lymph % (Auto) 19.0 L [place] % (Auto) 13.6 H Eos % (Auto) 1.6 Baso % (Auto) 1.3 Gran # 3.93 Lymph # (Auto) 1.2 [place] # (Auto) 0.8 H Eos # (Auto) 0.1 Baso # (Auto) 0.08 Retic Count 6.28 H Sodium Potassium Chloride Carbon Dioxide Anion Gap BUN Creatinine Est GFR ( Amer) Est GFR (Non-Af Amer) Random Glucose Calcium Total Bilirubin Direct Bilirubin 1.3 H AST ALT Alkaline Phosphatase Lactate Dehydrogenase Total Protein Albumin Globulin Albumin/Globulin Ratio Urine Color Urine Appearance Urine pH Ur Specific Atkins Urine Protein Urine Glucose (UA) Urine Ketones Urine Blood Urine Nitrate Urine Bilirubin Urine Urobilinogen Ur Leukocyte Esterase Urine RBC Urine WBC Ur Epithelial Cells Urine Bacteria Assessment & Plan - Assessment and Plan (Free Text) Assessment: 82 year old female patient with PMHx of hypertension, hyperlipidemia, COPD, CHF , A-Fib, hypothyroidism was seen and evaluated at bedside for right ankle and heel pain. Plan: Patient seen and evaluated with attending Dr. Cavanaugh Labs, vitals and charts reviewed - afebrile, no leukocytosis X-rays of the right foot and ankle ordered - pending Venous duplex ordered - r/o DVT Arterial duplex ordered - Pending Wounds cleaned with sterile saline and Dressing applied using duoderm on the plantar heel and maxorb, optifoam on the leg Multipodus boots ordered - Patient to wear boots while in bed at all times Thank you for the podiatry consult and allowing to take part in patient care Podiatry will follow patient while in-house - Date & Time Date: 08/23/17 Time: 11:56 <Viki Cavanaugh - Last Filed: 08/27/17 14:55> Results - Vital Signs Recent Vital Signs: Last Vital Signs Temp 98 F 08/25/17 08:03 Pulse 62 08/25/17 08:03 Resp 22 08/25/17 08:03 BP 110/48 L 08/25/17 09:22 Pulse Ox 93 L 08/25/17 08:03 - Labs Result Diagrams: 08/24/17 09:20 08/24/17 09:20 Attending/Attestation - Attestation I have personally seen and examined this patient.: Yes I have fully participated in the care of the patient.: Yes I have reviewed all pertinent clinical information: Yes
--- NOTE | 2017-08-23 11:48 | CP.PCM.CON ---
History of Present Illness - History of Present Illness History of Present Illness: Consult Note for Dr. Hastings 82 year old female with past medical history of CHF, HTN, DJD, Hypothyroidism, and A-fib on Eliquis presents to the hospital after her PMD told her to come into the hospital secondary to abnormal lab work. On presentation, patient reports that she has bilateral lower extremity pain Pain in her legs has been there for about a week and she has had this in the past. On the right foot, she states she has had a draining wound which was been producing clear fluids for the last several days. She denies any pus or blood coming from the wound. She denies any recent illnesses or trauma. Denies any new changes to medications. Denies chest pain, shortness of breath, nausea, vomiting, diarrhea, fever, chills. Past medical history: CHF, HTN, A-fib, DJD, Hypothyroidism Surgical history: Aortic valve replacement Social history: Denies alcohol, tobacco, or illicit drug use Allergies: NKDA Medications: Reviewed, as per MAR Review of Systems - Review of Systems Review of Systems: 12 point ROS as per HPI, otherwise negative Past Patient History - Infectious Disease Hx of Infectious Diseases: None - Past Social History Smoking Status: Never Smoked - CARDIAC Hx Cardiac Disorders: Yes Hx Congestive Heart Failure: Yes Hx Hypertension: Yes - PULMONARY Hx Chronic Obstructive Pulmonary Disease (COPD): Yes - NEUROLOGICAL Hx Neurological Disorder: No - HEENT Hx HEENT Problems: No - RENAL Hx Renal Failure: Yes - ENDOCRINE/METABOLIC Hx Hypothyroidism: Yes - HEMATOLOGICAL/ONCOLOGICAL Hx Blood Disorders: No - INTEGUMENTARY Hx Dermatological Problems: Yes - MUSCULOSKELETAL/RHEUMATOLOGICAL Hx Arthritis: Yes Hx Falls: Yes - GASTROINTESTINAL Hx Gastrointestinal Disorders: No - GENITOURINARY/GYNECOLOGICAL Hx Genitourinary Disorders: No - PSYCHIATRIC Hx Psychophysiologic Disorder: No Hx Substance Use: No - SURGICAL HISTORY Hx Valve Replacement: Yes (Aortic) - ANESTHESIA Hx Anesthesia: Yes Hx Anesthesia Reactions: No Hx Malignant Hyperthermia: No Meds Allergies/Adverse Reactions: Allergies Allergy/AdvReac Type Severity Reaction Status Date / Time No Known Allergies Allergy Verified 08/22/17 15:08 - Medications Medications: Current Medications Apixaban (Eliquis) 2.5 mg PO BID [facility] PRN Reason: Protocol Aspirin (Ecotrin) 81 mg PO DAILY [facility] Last Admin: 08/23/17 10:50 Dose: 81 mg Atorvastatin Calcium (Lipitor) 10 mg PO DIN [facility] Levothyroxine Sodium (Synthroid) 112 mcg PO 0600 [facility] Last Admin: 08/23/17 06:41 Dose: 112 mcg Metoprolol Succinate (Toprol Xl) 50 mg PO DAILY [facility] Last Admin: 08/23/17 10:54 Dose: Not Given Oxycodone/Acetaminophen (Percocet 5/325 Mg Tab) 1 tab PO Q4H PRN PRN Reason: Pain, moderate (4-7) Stop: 08/26/17 10:01 Potassium Chloride (K-Dur 20 Meq Er Tab) 20 meq PO BRK [facility] Last Admin: 08/23/17 10:50 Dose: 20 meq Pregabalin (Lyrica) 50 mg PO DAILY [facility] Physical Exam - Constitutional Appears: Non-toxic, No Acute Distress - Head Exam Head Exam: ATRAUMATIC, NORMAL INSPECTION, NORMOCEPHALIC - Eye Exam Eye Exam: Scleral icterus - ENT Exam ENT Exam: Mucous Membranes Moist - Neck Exam Neck exam: Positive for: Normal Inspection. Negative for: Lymphadenopathy - Respiratory Exam Respiratory Exam: Clear to Auscultation Bilateral, NORMAL BREATHING PATTERN - Cardiovascular Exam Cardiovascular Exam: RRR, +S1, +S2. absent: Clicks - GI/Abdominal Exam GI & Abdominal Exam: Normal Bowel Sounds, Soft. absent: Tenderness - Extremities Exam Extremities exam: Positive for: pedal edema (+1 edema b/l). Negative for: calf tenderness Additional comments: Lower right extremity bandaged - Neurological Exam Neurological exam: Alert, CN II-XII Intact, Oriented x3 - Psychiatric Exam Psychiatric exam: Normal Affect, Normal Mood - Skin Skin Exam: Erythema (Lower extremities ), Intact, Warm Results - Vital Signs Recent Vital Signs: Last Vital Signs Temp 97.9 F 08/23/17 08:00 Pulse 56 L 08/23/17 08:00 Resp 22 08/23/17 08:00 BP 100/59 L 08/23/17 10:54 Pulse Ox 93 L 08/23/17 08:00 - Labs Result Diagrams: 08/23/17 07:00 08/23/17 06:30 Labs: Laboratory Results - last 24 hr 08/22/17 08/23/17 08/23/17 23:13 06:30 06:30 WBC Cancelled RBC Cancelled Hgb Cancelled Hct Cancelled MCV Cancelled MCH Cancelled MCHC Cancelled RDW Cancelled Plt Count Cancelled MPV Cancelled Gran % Cancelled Lymph % (Auto) Cancelled Wheeler % (Auto) Cancelled Eos % (Auto) Cancelled Baso % (Auto) Cancelled Gran # Cancelled Lymph # (Auto) Cancelled [place] # (Auto) Cancelled Eos # (Auto) Cancelled Baso # (Auto) Cancelled Retic Count Sodium 141 Potassium 4.8 Chloride 104 Carbon Dioxide 26 Anion Gap 16 BUN 39 H Creatinine 1.4 H Est GFR ( Amer) 43 Est GFR (Non-Af Amer) 36 Random Glucose 138 H Calcium 10.0 Total Bilirubin 4.5 H Direct Bilirubin AST 50 H D ALT 48 Alkaline Phosphatase 93 Lactate Dehydrogenase 1112 H Total Protein 5.7 L Albumin 3.1 Globulin 2.6 Albumin/Globulin Ratio 1.2 Urine Color Yellow Urine Appearance Sl cloudy Urine pH 6.0 Ur Specific [place] >= 1.030 Urine Protein 100 H Urine Glucose (UA) Negative Urine Ketones Negative Urine Blood Small H Urine Nitrate Negative Urine Bilirubin Negative Urine Urobilinogen 0.2 Ur Leukocyte Esterase Large H Urine RBC 2 - 5 Urine WBC 15 - 20 Ur Epithelial Cells 4 - 5 Urine Bacteria Many 08/23/17 08/23/17 06:30 07:00 WBC 6.1 RBC 3.27 L Hgb 10.3 L Hct 34.0 L MCV 104.0 MCH 31.5 MCHC 30.3 L RDW 17.3 H Plt Count 123 MPV 12.5 H Gran % 64.5 Lymph % (Auto) 19.0 L Wheeler % (Auto) 13.6 H Eos % (Auto) 1.6 Baso % (Auto) 1.3 Gran # 3.93 Lymph # (Auto) 1.2 Wheeler # (Auto) 0.8 H Eos # (Auto) 0.1 Baso # (Auto) 0.08 Retic Count 6.28 H Sodium Potassium Chloride Carbon Dioxide Anion Gap BUN Creatinine Est GFR ( Amer) Est GFR (Non-Af Amer) Random Glucose Calcium Total Bilirubin Direct Bilirubin 1.3 H AST ALT Alkaline Phosphatase Lactate Dehydrogenase Total Protein Albumin Globulin Albumin/Globulin Ratio Urine Color Urine Appearance Urine pH Ur Specific [place] Urine Protein Urine Glucose (UA) Urine Ketones Urine Blood Urine Nitrate Urine Bilirubin Urine Urobilinogen Ur Leukocyte Esterase Urine RBC Urine WBC Ur Epithelial Cells Urine Bacteria Assessment & Plan - Assessment and Plan (Free Text) Plan: 82 year old female with past medical history of CHF, HTN, DJD, Hypothyroidism, and A-fib on Eliquis presents with abnormal lab findings at PMD office. Patient is noted to have anemia and increased Bilirubin. Patient also noted to have greatly increased LDH. We will proceed with workup for hemolytic anemia. Hepatic and spleen ultrasound has been ordered. Patient also has increased indirect bilirubin and increased reticulocyte count. 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 We will transfuse as necessary, although there is no indication at this time. Will continue to monitor closely. Plan discussed with Dr. Hastings. Saba, PGY-2
[2017-08-23 11:51] LABS: INR 1.81 (0.93-1.08); PROTHROMBIN TIME 21.1 SECONDS (9.4-12.5)
--- NOTE | 2017-08-23 20:42 | US ---
PROCEDURE: Lower extremity ARABELLA exam HISTORY: Peripheral vascular disease with pain and ulceration. PHYSICIAN(S): Lev Billingsley MD. FINDINGS: The exam is limited by calcified vessels. The resting ABIs are abnormally elevated: Right, 1.87 and left, 1.64 The brachial systolic pressures are symmetric. The low thigh PVR waveforms are moderately blunted. This is suggestive of aortoiliac disease. The right calf PVR waveform is mildly blunted and the left calf PVR waveform is moderately blunted. This is suggestive of left SFA occlusive disease. The ankle PVR waveforms are relatively normal. IMPRESSION: 1. Limited study due to calcified vessels and body habitus. 2. 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 3. Left SFA occlusive disease.
--- NOTE | 2017-08-23 20:43 | US ---
HISTORY: Leg pain and swelling. Evaluate for DVT PHYSICIAN(S): Lev Billingsley MD. TECHNIQUE: Duplex sonography and color-flow Doppler with graded compression were used to evaluate the deep venous systems of both lower extremities. The exam is limited by body habitus and edema. The tibial veins are not adequately seen. FINDINGS: The visualized deep venous systems of both lower extremities are sonographically normal and compressible. Normal wave forms and augmentation are seen. There is no sonographic evidence for deep venous thrombosis in the visualized segments of both lower extremities. IMPRESSION: No sonographic evidence for deep venous thrombosis in the visualized segments of both lower extremities. Very limited study.
[2017-08-23] MEDS: Oxycodone/Acetaminophen 5/325 mg Tab PO PRN (21:32)
--- NOTE | 2017-08-24 03:12 | HP ---
HISTORY OF PRESENT ILLNESS: This is an 82-year-old female, who was accompanied to the hospital, sent in by her primary care doctor because of elevated bilirubin. The patient has a past medical history of hypertension, dyslipidemia, COPD, CHF and atrial fibrillation. The patient said that she has been having right heel pain as well. She denies any chest pain, shortness of breath. No headaches or dizziness. No nausea. No weakness in the arms or the legs. She does have right leg that has chronic wound that was draining for the past few days. She denies any easy bleeding or any ecchymosis that occurs spontaneously. The patient does have a history of aortic valve replacement and she also has atrial fibrillation. She has been taking Eliquis for her anticoagulation. REVIEW OF SYSTEMS: All review of symptoms are within normal limits except what is mentioned. ALLERGIES: NO KNOWN DRUG ALLERGIES. HOME MEDICATIONS: Have been reviewed on the [facility]. PAST MEDICAL HISTORY: 1. Hypertension. 2. Atrial fibrillation. 3. DJD. 4. Hypothyroidism. 5. CHF secondary to systolic dysfunction, chronic, stable. PAST SURGICAL HISTORY: Aortic valve replacement. SOCIAL HISTORY: She denies alcohol, tobacco or drug use. PHYSICAL EXAMINATION: VITAL SIGNS: Her temperature is 97.9, pulse of 56, blood pressure is 109/56, respirations 22, O2 saturation 93%. GENERAL: The patient lying in bed, uncomfortable, and in no acute distress. HEENT: Atraumatic and normocephalic. Anicteric sclerae. Moist mucosa. [place] conjunctivae. No oral lesions. NECK: No JVD, anterior and posterior adenopathy, thyromegaly, or bruits. CARDIOVASCULAR: S1 and S2 regular. No murmur, rubs, or gallop. LUNGS: Clear to auscultation bilaterally. No wheezes, rales, or rhonchi. ABDOMEN: Bowel sounds are positive. Soft, nontender and nondistended. No hepatosplenomegaly. No rebound and no guarding. EXTREMITIES: In the lower extremities, there are chronic skin changes in the right leg. NEUROLOGIC: No facial asymmetry. Tongue is midline. No uvula deviation. Power is 5/5 upper extremity and lower extremity. Sensation intact in upper extremity and lower extremity. PSYCHIATRIC: She is awake, alert and oriented x3. No anxiety or depression. She has normal affect. GENITOURINARY: No CVA tenderness. VASCULAR: 2+ pulses in the carotid pulses and pedal pulses. SKIN: No erythema or nodules SPINE: Shows normal curvature. LABORATORY DATA: Labs have been reviewed. The patient has a creatinine of 1.4, her total bilirubin is 4.3 with a direct bilirubin of 1.3, LDH is 1112. She has a hemoglobin of 3.4. ASSESSMENT: 1. Hyperbilirubinemia. 2. Aortic valve. 3. Anemia. 4. Elevated LDH. 5. Atrial fibrillation, on Coumadin. 6. Hypothyroidism. 7. Dyslipidemia. 8. Restless leg syndrome. 9. Obese with a body mass index of 42. 10. A 7 mm common bile duct, status post cholecystectomy. 11. Fatty liver. 12. Chronic kidney disease stage III. PLAN: The patient is going to be admitted to the hospital. I will continue her Eliquis for her anticoagulation. She will be given potassium. She is on Lipitor for dyslipidemia. She is going to continue with her . She is on morphine for pain. She is on Synthroid for hypothyroidism. She is on metoprolol and aspirin. She is being seen by Dr. Hastings from Hematology. I am concerned about possible hemolysis. She does have an aortic valve and this may also be contributing to hemolysis with an elevated LDH. The patient has a smear that has been ordered and pending. Her haptoglobin is also pending. I am also waiting for evaluation by Dr. Keller. A hepatic ultrasound was done, it measured 15.8 cm. She has a 7 mm common bile duct. She had a chest x-ray that shows no active disease. She also probably has CKD stage III. We will await further input from the specialist. Ultrasound of the leg has been ordered. X-rays of the leg has been ordered as well. She is on a regular diet. I spoke to the son at the bedside to give an update. Jose Eduardo Hamilton MD
[2017-08-24] MEDS: Levothyroxine 112 MCG TAB PO SCH (06:15)
[2017-08-24 09:31] LABS: HEMOGLOBIN 10.6 g/dL (12.0-16.0); MEAN CELL VOLUME 104.7 fl (80.0-105.0); MEAN CORPUSCULAR HEMOGLOBIN 32.9 pg (25.0-35.0); MEAN CORPUSCULAR HGB CONC 31.5 g/dl (31.0-37.0); MEAN PLATELET VOLUME 12.3 fl (7.0-11.0); RBC 3.22 10^6/uL (3.5-6.1); RED CELL DISTRIBUTION WIDTH 17.4 % (11.5-14.5); WHITE BLOOD COUNT 6.9 10^3/ul (4.5-11.0)
[2017-08-24 10:06] LABS: ALB/GLOB RATIO 1.2 (1.1-1.8); ALBUMIN 3.2 g/dL (3.0-4.8); CALCIUM 9.8 mg/dL (8.4-10.5)
[2017-08-24] MEDS: Nystatin-Triamcinolone Cream(30 gm) TOP SCH ×2 (10:42→18:17)
--- NOTE | 2017-08-24 10:42 | CP.PCM.PN ---
<Tamera Delgadillo - Last Filed: 08/24/17 10:34> Subjective - Date & Time of Evaluation Date of Evaluation: 08/24/17 Time of Evaluation: 08:20 - Subjective Subjective: S&E at bedside chart reviewed, eating breakfast, no c/o SOB, CP, N/V or abdominal pain. Requesting for Miralax. Had dopplers of LF, negative for DVT, Abd US show fatty liver, s/p cholecytectomy. No specific GI complaints. Objective - Vital Signs/Intake and Output Vital Signs (last 24 hours): Temp Pulse Resp BP Pulse Ox 97.7 F 76 16 95/46 L 98 08/24/17 08:00 08/24/17 08:00 08/24/17 08:00 08/24/17 08:00 08/24/17 08:00 Intake and Output: 08/24/17 08/24/17 06:59 18:59 Intake Total 600 Balance 600 - Medications Medications: Current Medications Apixaban (Eliquis) 2.5 mg PO BID [facility] PRN Reason: Protocol Last Admin: 08/23/17 17:39 Dose: 2.5 mg Aspirin (Ecotrin) 81 mg PO DAILY [facility] Last Admin: 08/23/17 10:50 Dose: 81 mg Atorvastatin Calcium (Lipitor) 10 mg PO DIN [facility] Last Admin: 08/23/17 17:41 Dose: 10 mg Furosemide (Lasix) 40 mg PO BID [facility] Levothyroxine Sodium (Synthroid) 112 mcg PO 0600 [facility] Last Admin: 08/24/17 06:15 Dose: 112 mcg Metoprolol Succinate (Toprol Xl) 50 mg PO DAILY [facility] Last Admin: 08/23/17 10:54 Dose: Not Given Nystatin/Triamcinolone Acetonide (Nystatin/Triamcinolone Cream) 1 ea TOP BID [facility] Oxycodone/Acetaminophen (Percocet 5/325 Mg Tab) 1 tab PO Q4H PRN PRN Reason: Pain, moderate (4-7) Stop: 08/26/17 10:01 Last Admin: 08/23/17 21:32 Dose: 1 tab Polyethylene Glycol (Miralax) 17 gm PO DAILY [facility] Potassium Chloride (K-Dur 20 Meq Er Tab) 20 meq PO BRK [facility] Last Admin: 08/23/17 10:50 Dose: 20 meq Pregabalin (Lyrica) 50 mg PO DAILY [facility] Last Admin: 08/23/17 11:00 Dose: Not Given - Labs Labs: 08/24/17 09:20 08/24/17 09:20 PT 21.1 SECONDS (9.4-12.5) H 08/23/17 11:30 INR 1.81 (0.93-1.08) H 08/23/17 11:30 APTT 32.3 Seconds (25.1-36.5) 08/22/17 16:10 - Constitutional Appears: No Acute Distress - Eye Exam Eye Exam: Scleral icterus - ENT Exam ENT Exam: Mucous Membranes Moist - Respiratory Exam Respiratory Exam: Decreased Breath Sounds, NORMAL BREATHING PATTERN. absent: Respiratory Distress - Cardiovascular Exam Cardiovascular Exam: +S1, +S2 - GI/Abdominal Exam GI & Abdominal Exam: Soft, Normal Bowel Sounds. absent: Guarding, Tenderness, Organomegaly, Rebound - Extremities Exam Extremities Exam: absent: Calf Tenderness, Pedal Edema - Neurological Exam Neurological Exam: Alert, Awake, Oriented x3 - Skin Skin Exam: Dry, Warm Additional comments: jaundice Assessment and Plan - Assessment and Plan (Free Text) Assessment: ASSESSMENT: Hyperbilirubinemia, differentials to consider hemalysis Anemia H/O cholecytectomy, CBD 7mm Atrial Fibrillation, on Eliquis Fatty liver Diabetes mellitus Obesity PLAN: FU reticulocyte counnt, hepatoglobin monitor LFT start on Miralax daily on Eliquis/Aspirin hematology FU Seen and discussed w/ Dr. Gambino. <Arianna,Kogeniel V - Last Filed: 08/24/17 20:27> Objective - Vital Signs/Intake and Output Vital Signs (last 24 hours): Temp Pulse Resp BP Pulse Ox 97.7 F 76 16 124/65 98 08/24/17 08:00 08/24/17 08:00 08/24/17 08:00 08/24/17 18:14 08/24/17 08:00 Intake and Output: 08/24/17 08/25/17 18:59 06:59 Intake Total 480 Balance 480 - Medications Medications: Current Medications Apixaban (Eliquis) 2.5 mg PO BID [facility] PRN Reason: Protocol Last Admin: 08/24/17 18:14 Dose: 2.5 mg Aspirin (Ecotrin) 81 mg PO DAILY [facility] Last Admin: 08/24/17 10:44 Dose: 81 mg Atorvastatin Calcium (Lipitor) 10 mg PO DIN [facility] Last Admin: 08/24/17 18:14 Dose: 10 mg Bacitracin (Bacitracin) 1 gm TOP BID [facility] Last Admin: 08/24/17 18:59 Dose: 1 applic Furosemide (Lasix) 40 mg PO BID [facility] Last Admin: 08/24/17 18:14 Dose: 40 mg Levothyroxine Sodium (Synthroid) 112 mcg PO 0600 [facility] Last Admin: 08/24/17 06:15 Dose: 112 mcg Metoprolol Succinate (Toprol Xl) 50 mg PO DAILY [facility] Last Admin: 08/24/17 11:00 Dose: Not Given Nystatin/Triamcinolone Acetonide (Nystatin/Triamcinolone Cream) 1 ea TOP BID [facility] Last Admin: 08/24/17 18:17 Dose: 1 applic Oxycodone/Acetaminophen (Percocet 5/325 Mg Tab) 1 tab PO Q4H PRN PRN Reason: Pain, moderate (4-7) Stop: 08/26/17 10:01 Last Admin: 08/24/17 12:52 Dose: 1 tab Polyethylene Glycol (Miralax) 17 gm PO DAILY [facility] Last Admin: 08/24/17 10:43 Dose: 17 gm Potassium Chloride (K-Dur 20 Meq Er Tab) 20 meq PO BRK [facility] Last Admin: 08/24/17 10:45 Dose: 20 meq Pregabalin (Lyrica) 50 mg PO DAILY [facility] Last Admin: 08/24/17 10:50 Dose: 50 mg - Labs Labs: 08/24/17 09:20 08/24/17 09:20 PT 21.1 SECONDS (9.4-12.5) H 08/23/17 11:30 INR 1.81 (0.93-1.08) H 08/23/17 11:30 APTT 32.3 Seconds (25.1-36.5) 08/22/17 16:10 Attending/Attestation - Attestation I have personally seen and examined this patient.: Yes I have fully participated in the care of the patient.: Yes I have reviewed all pertinent clinical information, including history, physical exam and plan: Yes Notes (Text): This is an addendum to GI progress report dictated by Tamera Delgadillo APN.The patient was seen and examined earlier. Medical records, lab studies, imagings were reviewed. Last 24 hours events reviewed. Agreed with the above treatment plan as outlined in Tamera Delgadillo APN's notes the with the addition of the following on examination abdomen soft repeat labs showed a slight decrease in reticulocyte count and total bili. Bilirubin is mainly indirect bilirubin suggesting of hemolytic process Sonogram reviewed CBC normal status postcholecystectomy Other etiology to be considered in addition to hemolysis is hepatic congestion in view of the pulmonary hypertension CHF Follow-up hematology evaluation 08/24/17 20:25
[2017-08-24] MEDS: POLYETHYLENE GLYCOL 3350 17 GM/Dose PACKET PO SCH (10:43)
[2017-08-24] MEDS: Potassium Chloride 20 mEq ER Tab PO SCH (10:45)
[2017-08-24] MEDS: Metoprolol Succinate 50 mg XL Tab PO SCH (11:00)
[2017-08-24] MEDS ORDERED: Sod Polystyrene Sulf 15 gm/60 ml Susp PO ONE (11:19)
--- NOTE | 2017-08-24 11:24 | CP.PCM.PN ---
<BebetoPieterloisshelia - Last Filed: 08/24/17 11:21> Subjective - Date & Time of Evaluation Date of Evaluation: 08/24/17 (n) Time of Evaluation: 11:21 - Subjective Subjective: 82 year old female patient with PMHx of hypertension, hyperlipidemia, COPD, CHF , A-Fib, hypothyroidism was seen and evaluated at bedside for right ankle and heel pain. Patient is AAOx3 and is in NAD. Patient denies of any acute overnight events. Denies of any pain today. Denies of any F/N/V/C/SOB/CP/ headache. Denies of any other pedal complains at this time. Objective - Vital Signs/Intake and Output Vital Signs (last 24 hours): Temp Pulse Resp BP Pulse Ox 97.7 F 76 16 129/68 98 08/24/17 08:00 08/24/17 08:00 08/24/17 08:00 08/24/17 10:50 08/24/17 08:00 Intake and Output: 08/24/17 08/24/17 06:59 18:59 Intake Total 600 Balance 600 - Medications Medications: Current Medications Apixaban (Eliquis) 2.5 mg PO BID [facility] PRN Reason: Protocol Last Admin: 08/24/17 10:44 Dose: 2.5 mg Aspirin (Ecotrin) 81 mg PO DAILY [facility] Last Admin: 08/24/17 10:44 Dose: 81 mg Atorvastatin Calcium (Lipitor) 10 mg PO DIN [facility] Last Admin: 08/23/17 17:41 Dose: 10 mg Furosemide (Lasix) 40 mg PO BID [facility] Last Admin: 08/24/17 10:50 Dose: 40 mg Levothyroxine Sodium (Synthroid) 112 mcg PO 0600 [facility] Last Admin: 08/24/17 06:15 Dose: 112 mcg Metoprolol Succinate (Toprol Xl) 50 mg PO DAILY [facility] Last Admin: 08/23/17 10:54 Dose: Not Given Nystatin/Triamcinolone Acetonide (Nystatin/Triamcinolone Cream) 1 ea TOP BID [facility] Last Admin: 08/24/17 10:42 Dose: 1 applic Oxycodone/Acetaminophen (Percocet 5/325 Mg Tab) 1 tab PO Q4H PRN PRN Reason: Pain, moderate (4-7) Stop: 08/26/17 10:01 Last Admin: 08/23/17 21:32 Dose: 1 tab Polyethylene Glycol (Miralax) 17 gm PO DAILY [facility] Last Admin: 08/24/17 10:43 Dose: 17 gm Potassium Chloride (K-Dur 20 Meq Er Tab) 20 meq PO BRK [facility] Last Admin: 08/24/17 10:45 Dose: 20 meq Pregabalin (Lyrica) 50 mg PO DAILY [facility] Last Admin: 08/24/17 10:50 Dose: 50 mg - Labs Labs: 08/24/17 09:20 08/24/17 09:20 PT 21.1 SECONDS (9.4-12.5) H 08/23/17 11:30 INR 1.81 (0.93-1.08) H 08/23/17 11:30 APTT 32.3 Seconds (25.1-36.5) 08/22/17 16:10 - Constitutional Appears: Well, Non-toxic, No Acute Distress - Extremities Exam Additional comments: Bilateral LE exam: VASC: DP/PT pulses are very faintly palpable b/l, Cap refill time: < 3 sec to all digits, Temp gradient: warm to cool from proximal to distal, Skin tension lines noted which shows resolved edema, +1 Pitting edema noted on the medial leg b/l DERM: Stage 1 pre-ulcerative lesion noted on right plantar heel with small fissure on the lateral aspect of the heel, wound measuring approximately 0.5 cm x 0.5 cm x 0.1 cm noted on the distal lateral aspect of the right knee, active serous drainage noted from the proximal wound, no erythema, no tunneling, no undermining, no interdigital maceration, no clinical suspicion of active infection NEURO: Protective sensation mildly diminished ORTHO: Pain on active and passive ROM at the ankle joint, pain on palpation of the plantar lateral heel at the level of the fissure, no pain on palpation of the right calf - Neurological Exam Neurological Exam: Alert, Awake, Oriented x3 - Psychiatric Exam Psychiatric exam: Normal Affect, Normal Mood Assessment and Plan - Assessment and Plan (Free Text) Assessment: 82 year old female patient with PMHx of hypertension, hyperlipidemia, COPD, CHF , A-Fib, hypothyroidism was evaluated for resolving cellulitis secondary to right ankle and heel pain. Plan: Patient seen and evaluated with attending Dr. Cavanaugh Labs, vitals and charts reviewed - afebrile, no leukocytosis X-rays of the right foot and ankle - no acute chris pathology noted Venous duplex ordered - No evidence of DVT Arterial duplex ordered - Demonstrates calcified vessels with possible aortoilliac disease and left SFA occlusive disease. ARABELLA on R 1.87 and 1.64 on the left Wounds cleaned with sterile saline and Dressing applied using duoderm on the plantar heel and maxorb, optifoam on the leg Multipodus boots - Patient to wear boots while in bed at all times Podiatry will follow patient while in-house <Bhavik Wright - Last Filed: 08/25/17 08:15> Objective - Vital Signs/Intake and Output Vital Signs (last 24 hours): Temp Pulse Resp BP Pulse Ox 98 F 62 22 114/48 L 93 L 08/25/17 08:03 08/25/17 08:03 08/25/17 08:03 08/25/17 08:03 08/25/17 08:03 Intake and Output: 08/25/17 08/25/17 06:59 18:59 Intake Total 300 Balance 300 - Medications Medications: Current Medications Apixaban (Eliquis) 2.5 mg PO BID [facility] PRN Reason: Protocol Last Admin: 08/24/17 18:14 Dose: 2.5 mg Aspirin (Ecotrin) 81 mg PO DAILY [facility] Last Admin: 08/24/17 10:44 Dose: 81 mg Atorvastatin Calcium (Lipitor) 10 mg PO DIN [facility] Last Admin: 08/24/17 18:14 Dose: 10 mg Bacitracin (Bacitracin) 1 gm TOP BID [facility] Last Admin: 08/24/17 18:59 Dose: 1 applic Furosemide (Lasix) 40 mg PO BID [facility] Last Admin: 08/24/17 18:14 Dose: 40 mg Levothyroxine Sodium (Synthroid) 112 mcg PO 0600 [facility] Last Admin: 08/25/17 05:43 Dose: 112 mcg Metoprolol Succinate (Toprol Xl) 50 mg PO DAILY [facility] Last Admin: 08/24/17 11:00 Dose: Not Given Nystatin/Triamcinolone Acetonide (Nystatin/Triamcinolone Cream) 1 ea TOP BID [facility] Last Admin: 08/24/17 18:17 Dose: 1 applic Oxycodone/Acetaminophen (Percocet 5/325 Mg Tab) 1 tab PO Q4H PRN PRN Reason: Pain, moderate (4-7) Stop: 08/26/17 10:01 Last Admin: 08/24/17 12:52 Dose: 1 tab Polyethylene Glycol (Miralax) 17 gm PO DAILY [facility] Last Admin: 08/24/17 10:43 Dose: 17 gm Potassium Chloride (K-Dur 20 Meq Er Tab) 20 meq PO BRK [facility] Last Admin: 08/24/17 10:45 Dose: 20 meq Pregabalin (Lyrica) 50 mg PO DAILY [facility] Last Admin: 08/24/17 10:50 Dose: 50 mg - Labs Labs: 08/24/17 09:20 08/24/17 09:20 PT 21.1 SECONDS (9.4-12.5) H 08/23/17 11:30 INR 1.81 (0.93-1.08) H 08/23/17 11:30 APTT 32.3 Seconds (25.1-36.5) 08/22/17 16:10 Attending/Attestation - Attestation I have personally seen and examined this patient.: Yes I have fully participated in the care of the patient.: Yes I have reviewed all pertinent clinical information, including history, physical exam and plan: Yes
--- NOTE | 2017-08-24 11:34 | PN ---
DATE: 08/24/2017 SUBJECTIVE: The patient has no complaints of any chest pain. No shortness of breath. No headaches or dizziness. PHYSICAL EXAMINATION: VITAL SIGNS: Temperature is 97.9, pulse of 56, blood pressure 100/59, respirations 22. GENERAL: The patient is lying in bed, flat, comfortable. HEENT: No oral lesion. Anicteric sclerae. Moist mucosa. NECK: No JVD, adenopathy, or thyromegaly. CARDIOVASCULAR: S1 and S2, regular. No murmurs, rubs, or gallops. LUNGS: Clear to auscultation bilaterally. No wheeze, rales, or rhonchi. ABDOMEN: Bowel sounds are positive, soft, nontender and nondistended. EXTREMITIES: no cyanosis, clubbing or edema. ASSESSMENT: 1. Hyperbilirubinemia. 2. Aortic valve . 3. Anemia. 4. Elevated lactate dehydrogenase. 5. Atrial fibrillation, on Coumadin. 6. Hypothyroidism. 7. Dyslipidemia. 8. Chronic kidney disease stage III. 9. Restless legs syndrome. 10. Obesity with body mass index of 42. 11. A 7-mm common bile duct, status post cholecystectomy. 12. Fatty liver. 13. Stage I ulcer, 0.5 cm in right leg. 14. Left superficial femoral artery occlusive disease. 15. Peripheral arterial disease. PLAN: The patient's indirect bilirubin is elevated. Had an elevated LDH. The patient does have an aortic valve . This may be a cause of the patient's anemia as well as elevated LDH and hyperbilirubinemia. I am waiting for input from GI. The patient does have a common bile duct that is mildly lodged although the patient does not have any symptoms. The patient does have wounds in her legs, that is being followed. There is some serous drainage that is coming from the wounds. The patient had extremity ultrasound done. The lower extremity Doppler showed no evidence of DVT. Arterial Doppler showed possible aortoiliac disease, left superficial femoral artery occlusive disease. The patient is to continue her Eliquis for her valve. She is on potassium replacement. She is going to continue with Lyrica. She is on Synthroid for hypothyroidism. The patient is on a regular diet. The patient's reticulocyte count is elevated. Jose Eduardo Hamilton MD [facility]
[2017-08-24] MEDS: Oxycodone/Acetaminophen 5/325 mg Tab PO PRN (12:52)
--- NOTE | 2017-08-24 14:18 | RAD ---
PROCEDURE: Right Foot Radiographs. HISTORY: Right foot and ankle pain COMPARISON: None. FINDINGS: BONES: Diffuse osteopenia. No acute fracture. JOINTS: Hammertoe deformities. Degenerative changes. SOFT TISSUES: Normal. OTHER FINDINGS: Small inferior plantar calcaneal spur. IMPRESSION: No demonstrated fracture or dislocation. Degenerative changes. Diffuse osteopenia limits sensitivity for radio cold fractures. If there is clinical concern for fracture, MRI can be obtained for further evaluation.
--- NOTE | 2017-08-24 14:19 | RAD ---
PROCEDURE: Right Ankle Radiographs. HISTORY: Right foot and ankle pain COMPARISON: None FINDINGS: BONES: Diffuse osteopenia. No acute fracture. JOINTS: Degenerative changes. Ankle mortise maintained. Talar dome intact SOFT TISSUES: Normal. OTHER FINDINGS: None. IMPRESSION: No demonstrated fracture or dislocation. Degenerative changes. Diffuse osteopenia limits sensitivity for radio occult fracture. If there is clinical concern for acute fracture, MRI can be obtained for further evaluation.
[2017-08-24] MEDS: Bacitracin Ointment 30 GM TUBE TOP SCH (18:59)
[2017-08-25] MEDS: Levothyroxine 112 MCG TAB PO SCH (05:43)
--- NOTE | 2017-08-25 07:34 | PN ---
DATE: HEMATOLOGIC FOLLOWUP NOTE LOCATION: Patient is in room 563, bed 1 SUBJECTIVE: The patient has no complaints of any chest pain, shortness of breath, headache or dizziness. We are consulted to see the patient in view of the anemia and signs and symptoms that are based on lab testing of an elevated reticulocyte count, hyperbilirubinemia, most of it was indirect bilirubin suggestive of hemolysis. Patient's hemoglobin has stabilized and she is currently holding her own. PHYSICAL EXAMINATION GENERAL: Patient is examined at bedside. VITAL SIGNS: Stable. No new changes in the physical exam is noted at this point in time. ASSESSMENT AND PLAN: Patient has a chronic wound drainage, which is being addressed in the workup that the patient has had. Patient has had a common bile duct stone that is about 7 mm, which is being followed by GI. From our perspective, the hemoglobin and hematocrit is stable at this point in time. Patient has a prosthetic aortic valve; along with this, the patient has had an elevated LDH along with elevated reticulocyte count and hyperbilirubinemia, most of it is indirect bilirubin, which is consistent with ongoing hemolysis probably related to valvular issues. Patient at that time also had hypothyroidism and atrial fibrillation on Coumadin. Recommendations at this time would be to watch the patient's counts and follow with the patient as an outpatient. No active intervention from Hematologic perspective is indicated at this time. We will also get Gastroenterology input as far as followup on the gallstone is concerned. Will speak to Dr. Keller and arrange to follow with the patient as an outpatient when she is stable. Patient does have wound on the legs that is being monitored by the Wound Care team. Patient has significant vascular disease, which may be contributing to the issues in the leg at this point in time. She is on Eliquis for her valve and she is on potassium replacement. Recommendations at this point would be to follow up from a Hematologic perspective as an outpatient and make appropriate recommendations at that time. Thanking you for allowing me to participate in the management of this patient. Matilde Hastings MD
[2017-08-25 08:04] VITALS: PULSE 62; RESP 22; TEMP 98; O2SAT 93
[2017-08-25] MEDS: POLYETHYLENE GLYCOL 3350 17 GM/Dose PACKET PO SCH (09:20)
[2017-08-25] MEDS: Bacitracin Ointment 30 GM TUBE TOP SCH (09:20)
[2017-08-25] MEDS: Nystatin-Triamcinolone Cream(30 gm) TOP SCH (09:21)
[2017-08-25] MEDS: Metoprolol Succinate 50 mg XL Tab PO SCH (09:22)
[2017-08-25] MEDS: Potassium Chloride 20 mEq ER Tab PO SCH (09:23)
[2017-08-25 09:30] VITALS: BP 110/48
--- NOTE | 2017-08-25 09:35 | CP.PCM.PN ---
Subjective - Date & Time of Evaluation Date of Evaluation: 08/25/17 Time of Evaluation: 09:31 - Subjective Subjective: Podiatry Progress Note- Dr. Wright 82 year old female patient with PMHx of hypertension, hyperlipidemia, COPD, CHF , A-Fib, hypothyroidism was seen and evaluated at bedside for right ankle and heel pain. Patient is AAOx3 and is in NAD. Patient denies of any acute overnight events. Patient reports she is feeling tired. Reports no pain to the LE today. Denies of any F/N/V/C/SOB/CP/headache. Denies of any other pedal complains at this time. Objective - Vital Signs/Intake and Output Vital Signs (last 24 hours): Temp Pulse Resp BP Pulse Ox 98 F 62 22 110/48 L 93 L 08/25/17 08:03 08/25/17 08:03 08/25/17 08:03 08/25/17 09:22 08/25/17 08:03 Intake and Output: 08/25/17 08/25/17 06:59 18:59 Intake Total 300 Balance 300 - Medications Medications: Current Medications Apixaban (Eliquis) 2.5 mg PO BID [facility]PL[facility] BY [facility] PRN Reason: Protocol Last Admin: 08/25/17 09:26 Dose: 2.5 mg Aspirin (Ecotrin) 81 mg PO DAILY [facility] Last Admin: 08/25/17 09:22 Dose: 81 mg Atorvastatin Calcium (Lipitor) 10 mg PO DIN [facility] Last Admin: 08/24/17 18:14 Dose: 10 mg Bacitracin (Bacitracin) 1 gm TOP BID [facility] Last Admin: 08/25/17 09:20 Dose: 1 applic Furosemide (Lasix) 40 mg PO BID [facility] Last Admin: 08/25/17 09:21 Dose: Not Given Levothyroxine Sodium (Synthroid) 112 mcg PO 0600 [facility] Last Admin: 08/25/17 05:43 Dose: 112 mcg Metoprolol Succinate (Toprol Xl) 50 mg PO DAILY [facility] Last Admin: 08/25/17 09:22 Dose: Not Given Nystatin/Triamcinolone Acetonide (Nystatin/Triamcinolone Cream) 1 ea TOP BID [facility] Last Admin: 08/25/17 09:21 Dose: 1 applic Oxycodone/Acetaminophen (Percocet 5/325 Mg Tab) 1 tab PO Q4H PRN PRN Reason: Pain, moderate (4-7) Stop: 08/26/17 10:01 Last Admin: 08/24/17 12:52 Dose: 1 tab Polyethylene Glycol (Miralax) 17 gm PO DAILY [facility] Last Admin: 08/25/17 09:20 Dose: 17 gm Potassium Chloride (K-Dur 20 Meq Er Tab) 20 meq PO BRK [facility] Last Admin: 08/25/17 09:23 Dose: 20 meq Pregabalin (Lyrica) 50 mg PO DAILY [facility] Last Admin: 08/25/17 09:22 Dose: 50 mg - Labs Labs: 08/24/17 09:20 08/24/17 09:20 PT 21.1 SECONDS (9.4-12.5) H 08/23/17 11:30 INR 1.81 (0.93-1.08) H 08/23/17 11:30 APTT 32.3 Seconds (25.1-36.5) 08/22/17 16:10 - Constitutional Appears: Well, Non-toxic, No Acute Distress - Extremities Exam Extremities Exam: absent: Calf Tenderness Additional comments: Bilateral LE exam: VASC: DP/PT pulses are very faintly palpable b/l, Cap refill time: < 3 sec to all digits, Temp gradient: warm to cool from proximal to distal, Skin tension lines noted which shows resolved edema, +1 Pitting edema noted on the medial leg b/l DERM: Stage 1 pre-ulcerative lesion noted on right plantar heel with small fissure on the lateral aspect of the heel, wound measuring approximately 0.5 cm x 0.5 cm x 0.1 cm noted on the distal lateral aspect of the right knee, active serous drainage noted from the proximal wound, no erythema, no tunneling, no undermining, no interdigital maceration, no clinical suspicion of active infection NEURO: Protective sensation mildly diminished ORTHO: Pain on active and passive ROM at the ankle joint, pain on palpation of the plantar lateral heel at the level of the fissure, no pain on palpation of the right calf - Neurological Exam Neurological Exam: Alert, Awake, Oriented x3 - Psychiatric Exam Psychiatric exam: Normal Affect, Normal Mood Assessment and Plan - Assessment and Plan (Free Text) Assessment: 82 year old female patient with PMHx of hypertension, hyperlipidemia, COPD, CHF , A-Fib, hypothyroidism was evaluated for resolving cellulitis secondary to right ankle and heel pain. Plan: Patient seen and evaluated with attending Dr. Wright Labs, vitals and charts reviewed - afebrile, no leukocytosis X-rays of the right foot and ankle - no acute chris pathology noted Venous duplex ordered - No evidence of DVT Arterial duplex ordered - Demonstrates calcified vessels with possible aortoilliac disease and left SFA occlusive disease. ARABELLA on R 1.87 and 1.64 on the left Wounds cleaned with sterile saline and Dressing applied using duoderm on the plantar heel and maxorb, optifoam on the leg Multipodus boots - Patient to wear boots while in bed at all times Podiatry will follow patient while in-house
--- NOTE | 2017-08-26 02:30 | PN ---
DATE: 08/25/2017 SUBJECTIVE: This patient was seen and evaluated earlier today. The patient denies any abdominal pain, tolerating the diet. OBJECTIVE: VITAL SIGNS: Temperature is afebrile, blood pressure 114/48, pulse 82, respirations 22, O2 saturation 93%. HEENT: Atraumatic, anicteric. NECK: Supple. HEART: S1 and S2 is heard. LUNGS: Bilateral air entry present. ABDOMEN: Soft. EXTREMITIES: Leg swelling is present. Mild erythema present at the ankle. The patient is having foam support boots. LABORATORY DATA: Hemoglobin 10. There are no recent labs. ASSESSMENT AND PLAN: This is an 82-year-old patient with congestive heart failure, pulmonary hypertension, admitted with cellulitis, also found to have elevated liver function tests, mainly direct bilirubin, suggestive of hemolytic process. The patient has been evaluated by the color maker formulator, who thought it to be related to the hemolysis related to the valvular issues. The patient has a history of atrial fibrillation, on Coumadin. The patient is status post cholecystectomy. The common bile duct is normal. The patient is on Eliquis now with close followup of the hemoglobin, hematocrit and liver function tests. We will also discuss with the color maker formulator. Thank you very much for allowing us to participate in the care of the patient. Fouzia Keller MD
--- NOTE | 2017-08-27 09:45 | PN ---
DATE: 08/25/2017 SUBJECTIVE: The patient has no complaints of any chest pain. No shortness of breath. No headaches. The patient was not able to go home yesterday because of difficulty in ambulating. She was unsafe to discharge. She has no headache or dizziness. She is waiting to go to Transitional Care Unit. PHYSICAL EXAMINATION: VITAL SIGNS: Temperature is 98, pulse of 62, blood pressure 114/48, respirations 22, and O2 saturations 93%. SKIN: The right leg, there is an ulcer stage I and stage II. GENERAL: The patient is lying in bed, flat, comfortable. HEENT: No oral lesion. Anicteric sclerae. Moist mucosa. NECK: No JVD, adenopathy, or thyromegaly. CARDIOVASCULAR: S1 and S2, regular. No murmurs, rubs, or gallops. LUNGS: Clear to auscultation bilaterally. No wheeze, rales, or rhonchi. ABDOMEN: Bowel sounds are positive, soft, nontender and nondistended. EXTREMITIES: no cyanosis, clubbing or edema. ASSESSMENT: 1. Hyperbilirubinemia. 2. Aortic valve . 3. Anemia most likely secondary to aortic valve . 4. Elevated LDH. 5. Atrial fibrillation, on Coumadin. 6. Hypothyroidism. 7. Dyslipidemia. 8. Chronic kidney disease stage III. 9. Restless legs syndrome. 10. Obesity with body mass index of 42. 11. A 7-mm common bile duct, status post cholecystectomy. 12. Fatty liver. 13. Stage I ulcer in right leg, 0.5 cm. 14. Left superficial femoral artery occlusive disease. 15. Peripheral arterial disease. PLAN: The patient is currently comfortable. She is receiving Eliquis for anticoagulation. The patient is on aspirin daily. She is going to continue with Lipitor for dyslipidemia. She is on Lasix daily. The patient is on Miralax for constipation. She is on Synthroid for hypothyroidism. She is on regular diet. Jose Eduardo Hamilton MD
== END 2017-08-25 17:06 | DRG 442 ==
LOC: ED 14:39 → ERH 17:13 → 5RNO 19:06
PROVIDERS: ADMIT Internal Medicine Nephrology; ATTEND Internal Medicine Nephrology
DX: E80.6 Other disorders of bilirubin metabolism (principal); Z68.41 Body mass index [BMI] 40.0-44.9, adult; E11.22 Type 2 diabetes mellitus with diabetic chronic kidney disease; E11.51 Type 2 diabetes mellitus with diabetic peripheral angiopathy without gangrene; I27.20 Pulmonary hypertension, unspecified; K76.1 Chronic passive congestion of liver; N18.3 Chronic kidney disease, stage 3 (moderate); I13.0 Hypertensive heart and chronic kidney disease with heart failure and stage 1 through stage 4 chronic kidney disease, or unspecified chronic kidney disease; I50.22 Chronic systolic (congestive) heart failure; L03.90 Cellulitis, unspecified; L97.919 Non-pressure chronic ulcer of unspecified part of right lower leg with unspecified severity; D64.9 Anemia, unspecified; I48.91 Unspecified atrial fibrillation; E11.622 Type 2 diabetes mellitus with other skin ulcer; G25.81 Restless legs syndrome; E03.9 Hypothyroidism, unspecified; E78.5 Hyperlipidemia, unspecified; J44.9 Chronic obstructive pulmonary disease, unspecified; K76.0 Fatty (change of) liver, not elsewhere classified; E66.9 Obesity, unspecified; K80.20 Calculus of gallbladder without cholecystitis without obstruction; Z79.01 Long term (current) use of anticoagulants; Z79.82 Long term (current) use of aspirin; Z90.49 Acquired absence of other specified parts of digestive tract; M19.90 Unspecified osteoarthritis, unspecified site; Z95.2 Presence of prosthetic heart valve; M25.571 Pain in right ankle and joints of right foot

== ENCOUNTER 2017-08-25 16:37 | Inpatient (IN) | payer OTHER ==
[2017-08-25] MEDS ORDERED: Oxycodone/Acetaminophen 5/325 mg Tab PO PRN (17:51)
[2017-08-25 17:52] VITALS: BMI 44.1
[2017-08-25] MEDS: Bacitracin Ointment 30 GM TUBE TOP SCH (19:18)
[2017-08-25] MEDS: Nystatin-Triamcinolone Cream(30 gm) TOP SCH (19:19)
[2017-08-26] MEDS: Levothyroxine 112 MCG TAB PO SCH (05:23)
[2017-08-26] MEDS: Potassium Chloride 20 mEq ER Tab PO SCH (08:03)
[2017-08-26] MEDS: Bacitracin Ointment 30 GM TUBE TOP SCH ×2 (10:13→17:33)
[2017-08-26] MEDS: POLYETHYLENE GLYCOL 3350 17 GM/Dose PACKET PO SCH (10:15)
[2017-08-26] MEDS: Nystatin-Triamcinolone Cream(30 gm) TOP SCH ×2 (10:16→17:33)
[2017-08-26] MEDS: Metoprolol Succinate 50 mg XL Tab PO SCH (10:16)
--- NOTE | 2017-08-26 12:35 | CP.PCM.PN ---
<Avni Martinez - Last Filed: 08/26/17 12:30> Subjective - Date & Time of Evaluation Date of Evaluation: 08/26/17 Time of Evaluation: 12:30 - Subjective Subjective: Podiatry Progress Note- Dr. Wright 82 year old female patient with PMHx of hypertension, hyperlipidemia, COPD, CHF , A-Fib, hypothyroidism was seen and evaluated at bedside for right ankle and heel pain. Patient is AAOx3 and is in NAD. Patient denies of any acute overnight events. Reports no pain to the LE today. She reports that her feet feels tight when she wakes up in the morning. Patient reports that her dressing was just changed by nursing. Denies of any F/N/V/C/SOB/CP/headache. Objective - Vital Signs/Intake and Output Vital Signs (last 24 hours): Temp Pulse Resp BP Pulse Ox 83 135/68 08/26/17 10:16 08/26/17 10:16 - Medications Medications: Current Medications Apixaban (Eliquis) 2.5 mg PO Q12 [facility] PRN Reason: Protocol Last Admin: 08/26/17 10:15 Dose: 2.5 mg Aspirin (Ecotrin) 81 mg PO DAILY [facility] PRN Reason: Protocol Last Admin: 08/26/17 08:03 Dose: 81 mg Atorvastatin Calcium (Lipitor) 10 mg PO DIN [facility] PRN Reason: Protocol Last Admin: 08/25/17 18:00 Dose: 10 mg Bacitracin (Bacitracin) 1 gm TOP BID [facility] PRN Reason: Protocol Last Admin: 08/26/17 10:13 Dose: 1 applic Diphenhydramine HCl (Benadryl) 50 mg PO Q8 PRN PRN Reason: Itching / Pruritus Last Admin: 08/26/17 08:12 Dose: 50 mg Furosemide (Lasix) 40 mg PO BID [facility] PRN Reason: Protocol Last Admin: 08/26/17 10:15 Dose: 40 mg Levothyroxine Sodium (Synthroid) 112 mcg PO 0600 [facility] PRN Reason: Protocol Last Admin: 08/26/17 05:23 Dose: 112 mcg Metoprolol Succinate (Toprol Xl) 50 mg PO DAILY [facility] PRN Reason: Protocol Last Admin: 08/26/17 10:16 Dose: 50 mg Nystatin/Triamcinolone Acetonide (Nystatin/Triamcinolone Cream) 1 ea TOP BID [facility] PRN Reason: Protocol Last Admin: 08/26/17 10:16 Dose: 1 applic Oxycodone/Acetaminophen (Percocet 5/325 Mg Tab) 1 tab PO Q4H PRN; Protocol PRN Reason: Pain, moderate (4-7) Stop: 08/28/17 17:52 Last Admin: 08/25/17 19:18 Dose: 1 tab Polyethylene Glycol (Miralax) 17 gm PO DAILY [facility] PRN Reason: Protocol Last Admin: 08/26/17 10:15 Dose: 17 gm Potassium Chloride (K-Dur 20 Meq Er Tab) 20 meq PO BRK [facility] PRN Reason: Protocol Last Admin: 08/26/17 08:03 Dose: 20 meq Pregabalin (Lyrica) 50 mg PO DAILY [facility] PRN Reason: Protocol Last Admin: 08/26/17 10:18 Dose: 50 mg - Constitutional Appears: Well, Non-toxic, No Acute Distress - Extremities Exam Extremities Exam: absent: Calf Tenderness Additional comments: Dressing is c/d/i without strikethrough noted Temperature gradient WNL CFT < 3 seconds to the digits - Neurological Exam Neurological Exam: Alert, Awake, Oriented x3 Assessment and Plan - Assessment and Plan (Free Text) Assessment: 82 year old female patient with PMHx of hypertension, hyperlipidemia, COPD, CHF , A-Fib, hypothyroidism was evaluated for resolving cellulitis secondary to right ankle and heel pain. Plan: Patient seen and evaluated with attending Dr. Wright Labs, vitals and charts reviewed - afebrile, no leukocytosis WBC=6.9 X-rays of the right foot and ankle - no acute chris pathology noted Venous duplex ordered - No evidence of DVT Arterial duplex ordered - Demonstrates calcified vessels with possible aortoilliac disease and left SFA occlusive disease. ARABELLA on R 1.87 and 1.64 on the left Multipodus boots - Patient to wear boots while in bed at all times Podiatry will follow patient while in-house <Bhavik Wright - Last Filed: 08/28/17 11:00> Objective - Vital Signs/Intake and Output Vital Signs (last 24 hours): Temp Pulse Resp BP Pulse Ox 98.2 F 72 20 129/74 94 L 08/27/17 17:40 08/28/17 09:35 08/27/17 17:40 08/28/17 09:35 08/27/17 17:40 - Medications Medications: Current Medications Apixaban (Eliquis) 2.5 mg PO Q12 [facility] PRN Reason: Protocol Last Admin: 08/28/17 09:36 Dose: 2.5 mg Aspirin (Ecotrin) 81 mg PO DAILY [facility] PRN Reason: Protocol Last Admin: 08/28/17 09:35 Dose: 81 mg Atorvastatin Calcium (Lipitor) 10 mg PO DIN [facility] PRN Reason: Protocol Last Admin: 08/27/17 17:30 Dose: 10 mg Bacitracin (Bacitracin) 1 gm TOP BID [facility] PRN Reason: Protocol Last Admin: 08/28/17 09:33 Dose: 1 applic Diphenhydramine HCl (Benadryl) 50 mg PO Q8 PRN PRN Reason: Itching / Pruritus Last Admin: 08/28/17 05:40 Dose: 50 mg Furosemide (Lasix) 40 mg PO BID [facility] PRN Reason: Protocol Last Admin: 08/28/17 09:35 Dose: 40 mg Lactic Acid (Lac-Hydrin 12% Cream (140 G)) 0 ea TOP BID [facility] Last Admin: 08/28/17 09:36 Dose: 1 applic Levothyroxine Sodium (Synthroid) 112 mcg PO 0600 [facility] PRN Reason: Protocol Last Admin: 08/28/17 05:34 Dose: 112 mcg Loratadine (Claritin) 10 mg PO DAILY [facility] Last Admin: 08/28/17 09:35 Dose: 10 mg Metoprolol Succinate (Toprol Xl) 50 mg PO DAILY [facility] PRN Reason: Protocol Last Admin: 08/28/17 09:35 Dose: 50 mg Nystatin/Triamcinolone Acetonide (Nystatin/Triamcinolone Cream) 1 ea TOP BID [facility] PRN Reason: Protocol Last Admin: 08/28/17 09:34 Dose: 1 applic Oxycodone/Acetaminophen (Percocet 5/325 Mg Tab) 1 tab PO Q4H PRN; Protocol PRN Reason: Pain, moderate (4-7) Stop: 08/28/17 17:52 Last Admin: 08/25/17 19:18 Dose: 1 tab Polyethylene Glycol (Miralax) 17 gm PO DAILY [facility] PRN Reason: Protocol Last Admin: 08/28/17 09:34 Dose: 17 gm Potassium Chloride (K-Dur 20 Meq Er Tab) 20 meq PO BRK [facility] PRN Reason: Protocol Last Admin: 08/28/17 09:00 Dose: 20 meq Pregabalin (Lyrica) 50 mg PO DAILY [facility] PRN Reason: Protocol Last Admin: 08/28/17 09:33 Dose: 50 mg - Labs Labs: 08/27/17 06:30 08/27/17 06:30 Attending/Attestation - Attestation I have personally seen and examined this patient.: Yes I have fully participated in the care of the patient.: Yes I have reviewed all pertinent clinical information, including history, physical exam and plan: Yes
--- NOTE | 2017-08-27 01:12 | PN ---
DATE: 08/26/2017 SUBJECTIVE: The patient has no complaint of any chest pain. No shortness of breath. No headaches. PHYSICAL EXAMINATION: GENERAL: The patient is lying in bed, flat, comfortable. VITAL SIGNS: Temperature is 97.8, pulse is 58, blood pressure 120/56, and respirations 19. HEENT: No oral lesion. Anicteric sclerae. Moist mucosa. NECK: No JVD, adenopathy, or thyromegaly. CARDIOVASCULAR: S1 and S2, regular. No murmurs, rubs, or gallops. LUNGS: Clear to auscultation bilaterally. No wheeze, rales, or rhonchi. ABDOMEN: Bowel sounds are positive, soft, nontender and nondistended. EXTREMITIES: No cyanosis, clubbing, or edema. ASSESSMENT: 1. Hyperbilirubinemia. 2. Aortic valve. 3. Anemia. 4. Elevated LDH. 5. Atrial fibrillation, on Coumadin. 6. Hypothyroidism. 7. Dyslipidemia. 8. Restless legs syndrome. 9. Obesity with a body mass index of 42. 10. A 7-mm common bile duct, status post cholecystectomy. 11. Fatty liver. 12. Chronic kidney disease, stage III. PLAN: The patient has anemia because of the patient's valve. The patient is on Bacitracin. He is going to continue the aspirin daily. The patient is on Eliquis for her anticoagulation. She is on Lasix daily. The patient is receiving Lipitor for dyslipidemia. She is receiving oxycodone for pain. She is on Synthroid for hypothyroidism. She is on a regular diet. She is attending physical therapy. Jose Eduardo Hamilton MD
--- NOTE | 2017-08-27 02:46 | PN ---
DATE: 08/26/2017 SUBJECTIVE: This patient was seen and evaluated earlier, comfortable, not in acute distress. OBJECTIVE: VITAL SIGNS: Temperature 97.8, blood pressure 135/68, respirations 20, O2 saturation 93%. HEENT: Atraumatic. NECK: Supple. HEART: S1 and S2 is heard. LUNGS: Bilateral air entry present. ABDOMEN: Soft. EXTREMITIES: Dressing present. LABORATORY DATA: No recent labs. IMPRESSION: This is an 82-year-old patient with congestive heart failure, pulmonary hypertension, admitted with cellulitis, also found to have elevated liver function tests, total bilirubin, mainly indirect bilirubin suggestive of hemolytic process. She has been evaluated by the fill technician, is thought to be related to the hemolysis, secondary to valvular issues. The patient has a history of status post cholecystectomy, common bile duct normal. Recent labs reviewed. History of atrial fibrillation. The patient was on Coumadin. The patient is presently on Eliquis. Close followup of the hemoglobin, hematocrit. We will continue to follow up with the liver function tests. We will also discuss with the fill technician. Thank you very much for allowing us to participate in the care of the patient. Fouzia Keller MD [facility]
[2017-08-27] MEDS: Levothyroxine 112 MCG TAB PO SCH (05:00)
[2017-08-27 07:16] LABS: HEMOGLOBIN 10.4 g/dL (12.0-16.0); MEAN CELL VOLUME 102.1 fl (80.0-105.0); MEAN CORPUSCULAR HEMOGLOBIN 30.5 pg (25.0-35.0); MEAN CORPUSCULAR HGB CONC 29.9 g/dl (31.0-37.0); MEAN PLATELET VOLUME 11.9 fl (7.0-11.0); RBC 3.41 10^6/uL (3.5-6.1); RED CELL DISTRIBUTION WIDTH 16.8 % (11.5-14.5); WHITE BLOOD COUNT 5.8 10^3/ul (4.5-11.0)
[2017-08-27 07:26] LABS: ALB/GLOB RATIO 1.1 (1.1-1.8); ALBUMIN 2.9 g/dL (3.0-4.8); ALT/SGPT 174 U/L (7-56); AST/SGOT 107 U/L (14-36); BILIRUBIN,DIRECT 1.7 mg/dL (0.0-0.4); BLOOD UREA NITROGEN 30 mg/dL (7-21); CALCIUM 9.6 mg/dL (8.4-10.5); GFR AFRICAN-AMERICAN > 60; GFR NON-AFRICAN AMERICAN 53
[2017-08-27] MEDS: Potassium Chloride 20 mEq ER Tab PO SCH (07:54)
[2017-08-27] MEDS: Bacitracin Ointment 30 GM TUBE TOP SCH ×2 (10:09→17:30)
[2017-08-27] MEDS: POLYETHYLENE GLYCOL 3350 17 GM/Dose PACKET PO SCH (10:13)
[2017-08-27] MEDS: Nystatin-Triamcinolone Cream(30 gm) TOP SCH ×2 (10:13→17:30)
[2017-08-27] MEDS: Metoprolol Succinate 50 mg XL Tab PO SCH (10:14)
--- NOTE | 2017-08-27 10:27 | PN ---
DATE: SUBJECTIVE: The patient has no complaints of any chest pain. No shortness of breath, no headaches. PHYSICAL EXAMINATION VITAL SIGNS: Temperature is 97.8, pulse is 58, blood pressure 120/56, respirations 19. GENERAL: The patient is lying in bed, flat, comfortable. HEENT: No oral lesion. Anicteric sclerae. Moist mucosa. NECK: No JVD, adenopathy, or thyromegaly. CARDIOVASCULAR: S1 and S2, regular. No murmurs, rubs, or gallops. LUNGS: Clear to auscultation bilaterally. No wheeze, rales, or rhonchi. ABDOMEN: Bowel sounds are positive. Soft, nontender and nondistended. EXTREMITIES: No cyanosis, clubbing or edema. ASSESSMENT 1. 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 3. Atrial fibrillation, on Coumadin. 4. Dyslipidemia. 5. Restless legs syndrome. 6. Obesity with a body mass index of 42. 7. A 7-mm common bile duct, status post cholecystectomy. 8. Fatty liver. 9. Chronic kidney disease stage III. PLAN: The patient is currently comfortable. She is getting physical therapy. She was seen by Dr. Keller, I reviewed his notes. The patient is on Benadryl for pruritus. She is going to continue her apixaban, she is at 2.5 mg q. 12 hours. She is on Lasix twice a day along with potassium. She is on Lipitor for dyslipidemia. She is on MiraLax for constipation. She is on Percocet for pain. She is going to continue Synthroid for hypothyroidism. She is doing well with Physical Therapy. Jose Eduardo Hamilton MD
--- NOTE | 2017-08-27 12:55 | CP.PCM.PN ---
<Pennie Tate - Last Filed: 08/27/17 12:50> Subjective - Date & Time of Evaluation Date of Evaluation: 08/27/17 Time of Evaluation: 12:51 - Subjective Subjective: Podiatry Progress Note- Dr. Cavanaugh 82 year old female patient with PMHx of hypertension, hyperlipidemia, COPD, CHF , A-Fib, hypothyroidism was seen and evaluated at bedside for right ankle and heel pain. Patient is AAOx3 and is in NAD. Patient denies of any acute overnight events. Reports no pain to the LE today. Denies of any F/N/V/C/SOB/CP/ headache. Objective - Vital Signs/Intake and Output Vital Signs (last 24 hours): Temp Pulse Resp BP Pulse Ox 97.8 F 56 L 20 89/55 L 94 L 08/27/17 10:00 08/27/17 10:00 08/27/17 10:00 08/27/17 10:00 08/27/17 10:00 - Medications Medications: Current Medications Apixaban (Eliquis) 2.5 mg PO Q12 JILLIAN PRN Reason: Protocol Last Admin: 08/27/17 10:10 Dose: 2.5 mg Aspirin (Ecotrin) 81 mg PO DAILY JILLIAN PRN Reason: Protocol Last Admin: 08/27/17 10:10 Dose: 81 mg Atorvastatin Calcium (Lipitor) 10 mg PO DIN JILLIAN PRN Reason: Protocol Last Admin: 08/26/17 17:32 Dose: 10 mg Bacitracin (Bacitracin) 1 gm TOP BID JILLIAN PRN Reason: Protocol Last Admin: 08/27/17 10:09 Dose: 1 applic Diphenhydramine HCl (Benadryl) 50 mg PO Q8 PRN PRN Reason: Itching / Pruritus Last Admin: 08/27/17 07:54 Dose: 50 mg Furosemide (Lasix) 40 mg PO BID JILLIAN PRN Reason: Protocol Last Admin: 08/26/17 17:33 Dose: 40 mg Lactic Acid (Lac-Hydrin 12% Cream (140 G)) 0 ea TOP BID JILLIAN Levothyroxine Sodium (Synthroid) 112 mcg PO 0600 JILLIAN PRN Reason: Protocol Last Admin: 08/27/17 05:00 Dose: 112 mcg Loratadine (Claritin) 10 mg PO DAILY JILLIAN Metoprolol Succinate (Toprol Xl) 50 mg PO DAILY JILLIAN PRN Reason: Protocol Last Admin: 08/27/17 10:14 Dose: Not Given Nystatin/Triamcinolone Acetonide (Nystatin/Triamcinolone Cream) 1 ea TOP BID JILLIAN PRN Reason: Protocol Last Admin: 08/27/17 10:13 Dose: 1 applic Oxycodone/Acetaminophen (Percocet 5/325 Mg Tab) 1 tab PO Q4H PRN; Protocol PRN Reason: Pain, moderate (4-7) Stop: 08/28/17 17:52 Last Admin: 08/25/17 19:18 Dose: 1 tab Polyethylene Glycol (Miralax) 17 gm PO DAILY JILLIAN PRN Reason: Protocol Last Admin: 08/27/17 10:13 Dose: 17 gm Potassium Chloride (K-Dur 20 Meq Er Tab) 20 meq PO BRK JILLIAN PRN Reason: Protocol Last Admin: 08/27/17 07:54 Dose: 20 meq Pregabalin (Lyrica) 50 mg PO DAILY JILLIAN PRN Reason: Protocol Last Admin: 08/27/17 10:13 Dose: 50 mg - Labs Labs: 08/27/17 06:30 08/27/17 06:30 - Constitutional Appears: Well, Non-toxic, No Acute Distress - Extremities Exam Additional comments: Bilateral LE exam: VASC: DP/PT pulses are very faintly palpable b/l, Cap refill time: < 3 sec to all digits, Temp gradient: warm to cool from proximal to distal, Skin tension lines noted which shows resolved edema, +1 Pitting edema noted on the medial leg b/l DERM: Stage 1 pre-ulcerative lesion noted on right plantar heel with small fissure on the lateral aspect of the heel, wound measuring approximately 0.5 cm x 0.5 cm x 0.1 cm noted on the distal lateral aspect of the right knee, active serous drainage noted from the proximal wound, no erythema, no tunneling, no undermining, no interdigital maceration, no clinical suspicion of active infection NEURO: Protective sensation mildly diminished ORTHO: Pain on active and passive ROM at the ankle joint, pain on palpation of the plantar lateral heel at the level of the fissure, no pain on palpation of the right calf - Neurological Exam Neurological Exam: Alert, Awake, Oriented x3 - Psychiatric Exam Psychiatric exam: Normal Affect, Normal Mood Assessment and Plan - Assessment and Plan (Free Text) Assessment: 82 year old female patient with PMHx of hypertension, hyperlipidemia, COPD, CHF , A-Fib, hypothyroidism was evaluated for resolving cellulitis secondary to right ankle and heel pain. Plan: Patient seen and evaluated with attending Dr. Cavanaugh Labs, vitals and charts reviewed - afebrile, no leukocytosis X-rays of the right foot and ankle - no acute chris pathology noted Venous duplex ordered - No evidence of DVT Arterial duplex ordered - Demonstrates calcified vessels with possible aortoilliac disease and left SFA occlusive disease. ARABELLA on R 1.87 and 1.64 on the left Wounds cleaned with sterile saline and Dressing applied using duoderm on the plantar heel and maxorb, optifoam on the leg. Compressive socks applied up to the knee Multipodus boots - Patient to wear boots while in bed at all times Podiatry will follow patient while in-house <Viki Cavanaugh - Last Filed: 08/27/17 14:59> Objective - Vital Signs/Intake and Output Vital Signs (last 24 hours): Temp Pulse Resp BP Pulse Ox 97.8 F 56 L 20 109/66 94 L 08/27/17 10:00 08/27/17 10:00 08/27/17 10:00 08/27/17 14:07 08/27/17 10:00 - Medications Medications: Current Medications Apixaban (Eliquis) 2.5 mg PO Q12 JILLIAN PRN Reason: Protocol Last Admin: 08/27/17 10:10 Dose: 2.5 mg Aspirin (Ecotrin) 81 mg PO DAILY JILLIAN PRN Reason: Protocol Last Admin: 08/27/17 10:10 Dose: 81 mg Atorvastatin Calcium (Lipitor) 10 mg PO DIN JILLIAN PRN Reason: Protocol Last Admin: 08/26/17 17:32 Dose: 10 mg Bacitracin (Bacitracin) 1 gm TOP BID JILLIAN PRN Reason: Protocol Last Admin: 08/27/17 10:09 Dose: 1 applic Diphenhydramine HCl (Benadryl) 50 mg PO Q8 PRN PRN Reason: Itching / Pruritus Last Admin: 08/27/17 07:54 Dose: 50 mg Furosemide (Lasix) 40 mg PO BID JILLIAN PRN Reason: Protocol Last Admin: 08/27/17 14:07 Dose: 40 mg Lactic Acid (Lac-Hydrin 12% Cream (140 G)) 0 ea TOP BID JILLIAN Levothyroxine Sodium (Synthroid) 112 mcg PO 0600 JILLIAN PRN Reason: Protocol Last Admin: 08/27/17 05:00 Dose: 112 mcg Loratadine (Claritin) 10 mg PO DAILY JILLIAN Last Admin: 08/27/17 13:59 Dose: 10 mg Metoprolol Succinate (Toprol Xl) 50 mg PO DAILY JILLIAN PRN Reason: Protocol Last Admin: 08/27/17 10:14 Dose: Not Given Nystatin/Triamcinolone Acetonide (Nystatin/Triamcinolone Cream) 1 ea TOP BID JILLIAN PRN Reason: Protocol Last Admin: 08/27/17 10:13 Dose: 1 applic Oxycodone/Acetaminophen (Percocet 5/325 Mg Tab) 1 tab PO Q4H PRN; Protocol PRN Reason: Pain, moderate (4-7) Stop: 08/28/17 17:52 Last Admin: 08/25/17 19:18 Dose: 1 tab Polyethylene Glycol (Miralax) 17 gm PO DAILY JILLIAN PRN Reason: Protocol Last Admin: 08/27/17 10:13 Dose: 17 gm Potassium Chloride (K-Dur 20 Meq Er Tab) 20 meq PO BRK JILLIAN PRN Reason: Protocol Last Admin: 08/27/17 07:54 Dose: 20 meq Pregabalin (Lyrica) 50 mg PO DAILY JILLIAN PRN Reason: Protocol Last Admin: 08/27/17 10:13 Dose: 50 mg - Labs Labs: 08/27/17 06:30 08/27/17 06:30 Attending/Attestation - Attestation I have personally seen and examined this patient.: Yes I have fully participated in the care of the patient.: Yes I have reviewed all pertinent clinical information, including history, physical exam and plan: Yes
--- NOTE | 2017-08-27 13:02 | CP.PCM.CON ---
History of Present Illness - History of Present Illness History of Present Illness: Mark Vidal D.O. PGY-2, Internal Medicine Resident, Hem/Onc 82 year old female with a PMH of diastolic CHF, afib on Elliquis, hyperlipidemia , COPD, CHF, hypothyroidism, aortic valve replacement who is being seen in the TCU. Patient states that her itching continues to be a problem and at times she can't help but to scratch very hard. Otherwise patient does state that she has been active with PT. Review of Systems - Review of Systems All systems: reviewed and no additional remarkable complaints except - Integumentary Integumentary: Pruritus Past Patient History - Infectious Disease Hx of Infectious Diseases: None - Past Social History Smoking Status: Never Smoked - CARDIAC Hx Cardiac Disorders: Yes Hx Congestive Heart Failure: Yes Hx Hypercholesterolemia: Yes Hx Hypertension: Yes - PULMONARY Hx Chronic Obstructive Pulmonary Disease (COPD): Yes - NEUROLOGICAL Hx Neurological Disorder: No - HEENT Hx HEENT Problems: No - RENAL Hx Renal Failure: Yes - ENDOCRINE/METABOLIC Hx Hypothyroidism: Yes - HEMATOLOGICAL/ONCOLOGICAL Hx Blood Disorders: No - INTEGUMENTARY Hx Dermatological Problems: Yes - MUSCULOSKELETAL/RHEUMATOLOGICAL Hx Arthritis: Yes - GASTROINTESTINAL Hx Gastrointestinal Disorders: No - GENITOURINARY/GYNECOLOGICAL Hx Reproductive Disorders: No - PSYCHIATRIC Hx Psychophysiologic Disorder: No Hx Substance Use: No - SURGICAL HISTORY Hx Valve Replacement: Yes (Aortic) - ANESTHESIA Hx Anesthesia: Yes Hx Anesthesia Reactions: No Hx Malignant Hyperthermia: No Meds Allergies/Adverse Reactions: Allergies Allergy/AdvReac Type Severity Reaction Status Date / Time No Known Allergies Allergy Verified 08/25/17 22:30 - Medications Medications: Current Medications Apixaban (Eliquis) 2.5 mg PO Q12 JLILIAN PRN Reason: Protocol Last Admin: 08/27/17 10:10 Dose: 2.5 mg Aspirin (Ecotrin) 81 mg PO DAILY JILLIAN PRN Reason: Protocol Last Admin: 08/27/17 10:10 Dose: 81 mg Atorvastatin Calcium (Lipitor) 10 mg PO DIN JILLIAN PRN Reason: Protocol Last Admin: 08/26/17 17:32 Dose: 10 mg Bacitracin (Bacitracin) 1 gm TOP BID JILLIAN PRN Reason: Protocol Last Admin: 08/27/17 10:09 Dose: 1 applic Diphenhydramine HCl (Benadryl) 50 mg PO Q8 PRN PRN Reason: Itching / Pruritus Last Admin: 08/27/17 07:54 Dose: 50 mg Furosemide (Lasix) 40 mg PO BID JILLIAN PRN Reason: Protocol Last Admin: 08/26/17 17:33 Dose: 40 mg Lactic Acid (Lac-Hydrin 12% Cream (140 G)) 0 ea TOP BID JILLIAN Levothyroxine Sodium (Synthroid) 112 mcg PO 0600 JILLIAN PRN Reason: Protocol Last Admin: 08/27/17 05:00 Dose: 112 mcg Loratadine (Claritin) 10 mg PO DAILY JILLIAN Metoprolol Succinate (Toprol Xl) 50 mg PO DAILY JILLIAN PRN Reason: Protocol Last Admin: 08/27/17 10:14 Dose: Not Given Nystatin/Triamcinolone Acetonide (Nystatin/Triamcinolone Cream) 1 ea TOP BID JILLIAN PRN Reason: Protocol Last Admin: 08/27/17 10:13 Dose: 1 applic Oxycodone/Acetaminophen (Percocet 5/325 Mg Tab) 1 tab PO Q4H PRN; Protocol PRN Reason: Pain, moderate (4-7) Stop: 08/28/17 17:52 Last Admin: 08/25/17 19:18 Dose: 1 tab Polyethylene Glycol (Miralax) 17 gm PO DAILY JILLIAN PRN Reason: Protocol Last Admin: 08/27/17 10:13 Dose: 17 gm Potassium Chloride (K-Dur 20 Meq Er Tab) 20 meq PO BRK JILLIAN PRN Reason: Protocol Last Admin: 08/27/17 07:54 Dose: 20 meq Pregabalin (Lyrica) 50 mg PO DAILY JILLIAN PRN Reason: Protocol Last Admin: 08/27/17 10:13 Dose: 50 mg Physical Exam - Constitutional Appears: Non-toxic, No Acute Distress - Head Exam Head Exam: ATRAUMATIC, NORMOCEPHALIC - Eye Exam Eye Exam: EOMI - ENT Exam ENT Exam: Mucous Membranes Moist - Neck Exam Neck exam: Positive for: Normal Inspection - Respiratory Exam Respiratory Exam: Clear to Auscultation Bilateral. absent: Rhonchi, Wheezes - Cardiovascular Exam Cardiovascular Exam: Irregular Rhythm, +S1, +S2 - GI/Abdominal Exam GI & Abdominal Exam: Normal Bowel Sounds, Soft. absent: Tenderness - Extremities Exam Extremities exam: Positive for: pedal edema. Negative for: tenderness - Neurological Exam Neurological exam: Alert, CN II-XII Intact, Oriented x3 - Psychiatric Exam Psychiatric exam: Normal Affect, Normal Mood - Skin Skin Exam: Dry, Warm Results - Vital Signs Recent Vital Signs: Last Vital Signs Temp 97.8 F 08/27/17 10:00 Pulse 56 L 08/27/17 10:00 Resp 20 08/27/17 10:00 BP 89/55 L 08/27/17 10:00 Pulse Ox 94 L 08/27/17 10:00 - Labs Result Diagrams: 08/27/17 06:30 08/27/17 06:30 Labs: Laboratory Results - last 24 hr 08/27/17 08/27/17 08/27/17 06:30 06:30 06:30 WBC 5.8 RBC 3.41 L Hgb 10.4 L Hct 34.8 L MCV 102.1 MCH 30.5 MCHC 29.9 L RDW 16.8 H Plt Count 108 L MPV 11.9 H Retic Count 5.16 H Sodium 141 Potassium 3.8 Chloride 104 Carbon Dioxide 26 Anion Gap 15 BUN 30 H Creatinine 1.0 Est GFR ( Amer) > 60 Est GFR (Non-Af Amer) 53 Random Glucose 130 H Calcium 9.6 Total Bilirubin 4.2 H Direct Bilirubin 1.7 H AST 107 H D ALT 174 H Alkaline Phosphatase 147 H D Total Protein 5.5 L Albumin 2.9 L Globulin 2.7 Albumin/Globulin Ratio 1.1 Assessment & Plan - Assessment and Plan (Free Text) Assessment: 82 year old female with a PMH of diastolic CHF, afib on Elliquis, hyperlipidemia , COPD, CHF, hypothyroidism, aortic valve replacement who is being seen in the TCU. 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
[2017-08-27] MEDS: Ammonium Lactate 12% Cream (140 g) TOP SCH (17:30)
--- NOTE | 2017-08-27 21:48 | PN ---
DATE: 08/26/2017 SUBJECTIVE: This patient was seen and evaluated earlier today. The patient is comfortable. No complaints of any abdominal pain. PHYSICAL EXAMINATION: VITAL SIGNS: Temperature is 97.8, pulse 56, blood pressure is 109/66. HEENT: Atraumatic, anicteric. NECK: Supple. HEART: S1 and S2 heard. LUNGS: Bilateral air entry present. ABDOMEN: Soft. There is no tenderness. EXTREMITIES: No cyanosis. No clubbing. IMPRESSION: This is an 82-year-old patient with a past medical history of congestive heart failure, pulmonary hypertension, obesity, chronic obstructive pulmonary disease, admitted with increased cellulitis and also increased total bilirubin level. The patient's total bilirubin was 4.2, direct was 1.7. Alkaline phosphatase 147. Most likely, the bilirubin is secondary to the hemolytic process. We would recommend follow up of the LFTs, reticulocyte count still remains high at 5.2. Last sonogram results were also reviewed. We will discuss with pocket marker. Thank you very much for allowing us to participate in the care of the patient. Fouzia Keller MD [facility]
[2017-08-28] MEDS: Levothyroxine 112 MCG TAB PO SCH (05:34)
[2017-08-28] MEDS: Potassium Chloride 20 mEq ER Tab PO SCH (09:00)
[2017-08-28] MEDS: Bacitracin Ointment 30 GM TUBE TOP SCH ×2 (09:33→17:20)
[2017-08-28] MEDS: POLYETHYLENE GLYCOL 3350 17 GM/Dose PACKET PO SCH (09:34)
[2017-08-28] MEDS: Nystatin-Triamcinolone Cream(30 gm) TOP SCH ×2 (09:34→17:22)
[2017-08-28] MEDS: Metoprolol Succinate 50 mg XL Tab PO SCH (09:35)
[2017-08-28] MEDS: Ammonium Lactate 12% Cream (140 g) TOP SCH ×2 (09:36→17:21)
--- NOTE | 2017-08-28 12:13 | CP.PCM.PN ---
<Pennie Tate - Last Filed: 08/28/17 12:10> Subjective - Date & Time of Evaluation Date of Evaluation: 08/28/17 Time of Evaluation: 12:10 - Subjective Subjective: Podiatry Progress Note- Dr. Wright 82 year old female patient with PMHx of hypertension, hyperlipidemia, COPD, CHF , A-Fib, hypothyroidism was seen and evaluated at bedside for right knee draining wound. Patient is AAOx3 and is in NAD. Patient denies of any acute overnight events. Reports no pain to the LE today. Denies of any F/N/V/C/SOB/CP/ headache. Objective - Vital Signs/Intake and Output Vital Signs (last 24 hours): Temp Pulse Resp BP Pulse Ox 98.4 F 72 18 129/74 93 L 08/28/17 11:41 08/28/17 11:41 08/28/17 11:41 08/28/17 11:41 08/28/17 11:41 - Medications Medications: Current Medications Apixaban (Eliquis) 2.5 mg PO Q12 JILLIAN PRN Reason: Protocol Last Admin: 08/28/17 09:36 Dose: 2.5 mg Aspirin (Ecotrin) 81 mg PO DAILY JILLIAN PRN Reason: Protocol Last Admin: 08/28/17 09:35 Dose: 81 mg Atorvastatin Calcium (Lipitor) 10 mg PO DIN JILLIAN PRN Reason: Protocol Last Admin: 08/27/17 17:30 Dose: 10 mg Bacitracin (Bacitracin) 1 gm TOP BID JILLIAN PRN Reason: Protocol Last Admin: 08/28/17 09:33 Dose: 1 applic Diphenhydramine HCl (Benadryl) 50 mg PO Q8 PRN PRN Reason: Itching / Pruritus Last Admin: 08/28/17 05:40 Dose: 50 mg Furosemide (Lasix) 40 mg PO BID JILLIAN PRN Reason: Protocol Last Admin: 08/28/17 09:35 Dose: 40 mg Lactic Acid (Lac-Hydrin 12% Cream (140 G)) 0 ea TOP BID JILLIAN Last Admin: 08/28/17 09:36 Dose: 1 applic Levothyroxine Sodium (Synthroid) 112 mcg PO 0600 JILLIAN PRN Reason: Protocol Last Admin: 08/28/17 05:34 Dose: 112 mcg Loratadine (Claritin) 10 mg PO DAILY JILLIAN Last Admin: 08/28/17 09:35 Dose: 10 mg Metoprolol Succinate (Toprol Xl) 50 mg PO DAILY JILLIAN PRN Reason: Protocol Last Admin: 08/28/17 09:35 Dose: 50 mg Nystatin/Triamcinolone Acetonide (Nystatin/Triamcinolone Cream) 1 ea TOP BID JILLIAN PRN Reason: Protocol Last Admin: 08/28/17 09:34 Dose: 1 applic Oxycodone/Acetaminophen (Percocet 5/325 Mg Tab) 1 tab PO Q4H PRN; Protocol PRN Reason: Pain, moderate (4-7) Stop: 08/28/17 17:52 Last Admin: 08/25/17 19:18 Dose: 1 tab Polyethylene Glycol (Miralax) 17 gm PO DAILY JILLIAN PRN Reason: Protocol Last Admin: 08/28/17 09:34 Dose: 17 gm Potassium Chloride (K-Dur 20 Meq Er Tab) 20 meq PO BRK JILLIAN PRN Reason: Protocol Last Admin: 08/28/17 09:00 Dose: 20 meq Pregabalin (Lyrica) 50 mg PO DAILY JILLIAN PRN Reason: Protocol Last Admin: 08/28/17 09:33 Dose: 50 mg - Labs Labs: 08/27/17 06:30 08/27/17 06:30 - Constitutional Appears: Well, Non-toxic, No Acute Distress - Extremities Exam Additional comments: Bilateral LE exam: VASC: DP/PT pulses are very faintly palpable b/l, Cap refill time: < 3 sec to all digits, Temp gradient: warm to cool from proximal to distal, Skin tension lines noted which shows resolved edema, +1 Pitting edema noted on the medial leg b/l DERM: Stage 1 pre-ulcerative lesion noted on right plantar heel with small fissure on the lateral aspect of the heel appears to be healed, wound measuring approximately 0.5 cm x 0.5 cm x 0.1 cm noted on the distal lateral aspect of the right knee, active serous drainage noted from the proximal wound, no erythema, no tunneling, no undermining, no interdigital maceration, no clinical suspicion of active infection NEURO: Protective sensation mildly diminished ORTHO: Pain on active and passive ROM at the ankle joint, no pain on palpation of the plantar lateral heel at the level of the fissure, no pain on palpation of the bilateral calf - Neurological Exam Neurological Exam: Alert, Awake, Oriented x3 - Psychiatric Exam Psychiatric exam: Normal Affect, Normal Mood Assessment and Plan - Assessment and Plan (Free Text) Assessment: 82 year old female patient with PMHx of hypertension, hyperlipidemia, COPD, CHF , A-Fib, hypothyroidism was evaluated for resolving cellulitis secondary to right knee wound Plan: Patient seen and evaluated with attending Dr. Wright Labs, vitals and charts reviewed - afebrile, no leukocytosis X-rays of the right foot and ankle - no acute chris pathology noted Venous duplex ordered - No evidence of DVT Arterial duplex ordered - Demonstrates calcified vessels with possible aortoilliac disease and left SFA occlusive disease. ARABELLA on R 1.87 and 1.64 on the left Wounds cleaned with sterile saline and dressing applied using maxorb, optifoam on the leg. Compressive socks applied up to the knee Multipodus boots - Patient to wear boots while in bed at all times Podiatry will follow patient while in-house <Bhavik Wright - Last Filed: 08/28/17 14:18> Objective - Vital Signs/Intake and Output Vital Signs (last 24 hours): Temp Pulse Resp BP Pulse Ox 98.4 F 72 18 129/74 93 L 08/28/17 11:41 08/28/17 11:41 08/28/17 11:41 08/28/17 11:41 08/28/17 11:41 - Medications Medications: Current Medications Apixaban (Eliquis) 2.5 mg PO Q12 JILLIAN PRN Reason: Protocol Last Admin: 08/28/17 09:36 Dose: 2.5 mg Aspirin (Ecotrin) 81 mg PO DAILY JILLIAN PRN Reason: Protocol Last Admin: 08/28/17 09:35 Dose: 81 mg Atorvastatin Calcium (Lipitor) 10 mg PO DIN JILLIAN PRN Reason: Protocol Last Admin: 08/27/17 17:30 Dose: 10 mg Bacitracin (Bacitracin) 1 gm TOP BID JILLIAN PRN Reason: Protocol Last Admin: 08/28/17 09:33 Dose: 1 applic Diphenhydramine HCl (Benadryl) 50 mg PO Q8 PRN PRN Reason: Itching / Pruritus Last Admin: 08/28/17 05:40 Dose: 50 mg Furosemide (Lasix) 40 mg PO BID JILLIAN PRN Reason: Protocol Last Admin: 08/28/17 09:35 Dose: 40 mg Lactic Acid (Lac-Hydrin 12% Cream (140 G)) 0 ea TOP BID JILLIAN Last Admin: 08/28/17 09:36 Dose: 1 applic Levothyroxine Sodium (Synthroid) 112 mcg PO 0600 JILLIAN PRN Reason: Protocol Last Admin: 08/28/17 05:34 Dose: 112 mcg Loratadine (Claritin) 10 mg PO DAILY JILLIAN Last Admin: 08/28/17 09:35 Dose: 10 mg Metoprolol Succinate (Toprol Xl) 50 mg PO DAILY JILLIAN PRN Reason: Protocol Last Admin: 08/28/17 09:35 Dose: 50 mg Nystatin/Triamcinolone Acetonide (Nystatin/Triamcinolone Cream) 1 ea TOP BID JILLIAN PRN Reason: Protocol Last Admin: 08/28/17 09:34 Dose: 1 applic Oxycodone/Acetaminophen (Percocet 5/325 Mg Tab) 1 tab PO Q4H PRN; Protocol PRN Reason: Pain, moderate (4-7) Stop: 08/28/17 17:52 Last Admin: 08/25/17 19:18 Dose: 1 tab Polyethylene Glycol (Miralax) 17 gm PO DAILY JILLIAN PRN Reason: Protocol Last Admin: 08/28/17 09:34 Dose: 17 gm Potassium Chloride (K-Dur 20 Meq Er Tab) 20 meq PO BRK JILLIAN PRN Reason: Protocol Last Admin: 08/28/17 09:00 Dose: 20 meq Pregabalin (Lyrica) 50 mg PO DAILY JILLIAN PRN Reason: Protocol Last Admin: 08/28/17 09:33 Dose: 50 mg - Labs Labs: 08/27/17 06:30 08/27/17 06:30 Attending/Attestation - Attestation I have personally seen and examined this patient.: Yes I have fully participated in the care of the patient.: Yes I have reviewed all pertinent clinical information, including history, physical exam and plan: Yes
[2017-08-29] MEDS: Levothyroxine 112 MCG TAB PO SCH (05:00)
--- NOTE | 2017-08-29 08:15 | CP.PCM.PN ---
Subjective - Date & Time of Evaluation Date of Evaluation: 08/28/17 Time of Evaluation: 10:20 - Subjective Subjective: S&E at bedside, chart reviewed, no reports of further diarrhea. No C/o N/V or abdominal pain. No acute overnight events reported. Objective - Vital Signs/Intake and Output Vital Signs (last 24 hours): Temp Pulse Resp BP Pulse Ox 98.4 F 72 18 129/74 93 L 08/28/17 11:41 08/28/17 11:41 08/28/17 11:41 08/28/17 11:41 08/28/17 11:41 - Medications Medications: Current Medications Apixaban (Eliquis) 2.5 mg PO Q12 JILLIAN PRN Reason: Protocol Last Admin: 08/28/17 09:36 Dose: 2.5 mg Aspirin (Ecotrin) 81 mg PO DAILY JILLIAN PRN Reason: Protocol Last Admin: 08/28/17 09:35 Dose: 81 mg Atorvastatin Calcium (Lipitor) 10 mg PO DIN JILLIAN PRN Reason: Protocol Last Admin: 08/27/17 17:30 Dose: 10 mg Bacitracin (Bacitracin) 1 gm TOP BID JILLIAN PRN Reason: Protocol Last Admin: 08/28/17 09:33 Dose: 1 applic Diphenhydramine HCl (Benadryl) 50 mg PO Q8 PRN PRN Reason: Itching / Pruritus Last Admin: 08/28/17 05:40 Dose: 50 mg Furosemide (Lasix) 40 mg PO BID JILLIAN PRN Reason: Protocol Last Admin: 08/28/17 09:35 Dose: 40 mg Lactic Acid (Lac-Hydrin 12% Cream (140 G)) 0 ea TOP BID JILLIAN Last Admin: 08/28/17 09:36 Dose: 1 applic Levothyroxine Sodium (Synthroid) 112 mcg PO 0600 JILLIAN PRN Reason: Protocol Last Admin: 08/28/17 05:34 Dose: 112 mcg Loratadine (Claritin) 10 mg PO DAILY JILLIAN Last Admin: 08/28/17 09:35 Dose: 10 mg Metoprolol Succinate (Toprol Xl) 50 mg PO DAILY JILLIAN PRN Reason: Protocol Last Admin: 08/28/17 09:35 Dose: 50 mg Nystatin/Triamcinolone Acetonide (Nystatin/Triamcinolone Cream) 1 ea TOP BID JILLIAN PRN Reason: Protocol Last Admin: 08/28/17 09:34 Dose: 1 applic Oxycodone/Acetaminophen (Percocet 5/325 Mg Tab) 1 tab PO Q4H PRN; Protocol PRN Reason: Pain, moderate (4-7) Stop: 08/28/17 17:52 Last Admin: 08/25/17 19:18 Dose: 1 tab Polyethylene Glycol (Miralax) 17 gm PO DAILY JILLIAN PRN Reason: Protocol Last Admin: 08/28/17 09:34 Dose: 17 gm Potassium Chloride (K-Dur 20 Meq Er Tab) 20 meq PO BRK JILLIAN PRN Reason: Protocol Last Admin: 08/28/17 09:00 Dose: 20 meq Pregabalin (Lyrica) 50 mg PO DAILY JILLIAN PRN Reason: Protocol Last Admin: 08/28/17 09:33 Dose: 50 mg - Labs Labs: 08/27/17 06:30 08/27/17 06:30 - Constitutional Appears: No Acute Distress - Head Exam Head Exam: NORMOCEPHALIC - Eye Exam Eye Exam: Scleral icterus Additional comments: slight - ENT Exam ENT Exam: Mucous Membranes Moist - Neck Exam Neck Exam: Normal Inspection - Respiratory Exam Respiratory Exam: NORMAL BREATHING PATTERN. absent: Respiratory Distress - Cardiovascular Exam Cardiovascular Exam: +S1, +S2 - GI/Abdominal Exam GI & Abdominal Exam: Soft, Normal Bowel Sounds. absent: Guarding, Tenderness, Rebound - Extremities Exam Extremities Exam: absent: Calf Tenderness - Neurological Exam Neurological Exam: Alert, Awake - Skin Skin Exam: Dry, Warm Assessment and Plan - Assessment and Plan (Free Text) Assessment: ASSESSMENT: Hyperbilirubinemia, differentials to consider hemolysis Anemia H/O cholecytectomy, CBD 7mm Atrial Fibrillation, on Eliquis Fatty liver Diabetes mellitus Obesity PLAN: monitor LFT on Miralax daily on Eliquis/Aspirin hematology FU FU stool cdiff Seen and discussed w/ Dr. Keller.
[2017-08-29] MEDS: Potassium Chloride 20 mEq ER Tab PO SCH (08:34)
[2017-08-29] MEDS: Metoprolol Succinate 50 mg XL Tab PO SCH ×2 (08:35→10:17)
[2017-08-29] MEDS: Bacitracin Ointment 30 GM TUBE TOP SCH ×2 (10:09→18:24)
[2017-08-29] MEDS: Ammonium Lactate 12% Cream (140 g) TOP SCH ×2 (10:15→18:24)
[2017-08-29] MEDS: POLYETHYLENE GLYCOL 3350 17 GM/Dose PACKET PO SCH (10:16)
[2017-08-29] MEDS: Nystatin-Triamcinolone Cream(30 gm) TOP SCH ×2 (10:17→18:25)
--- NOTE | 2017-08-29 11:27 | CP.PCM.PN ---
<Pennie Tate - Last Filed: 08/29/17 11:24> Subjective - Date & Time of Evaluation Date of Evaluation: 08/29/17 Time of Evaluation: 11:24 - Subjective Subjective: Podiatry Progress Note- Dr. Cavanaugh 82 year old female patient with PMHx of hypertension, hyperlipidemia, COPD, CHF , A-Fib, hypothyroidism was seen and evaluated at bedside for right knee draining wound. Patient is AAOx3 and is in NAD. Patient is seen resting comfortably in the chair this morning. Patient denies of any acute overnight events. Reports no pain to the LE today. Denies of any F/N/V/C/SOB/CP/headache. Objective - Vital Signs/Intake and Output Vital Signs (last 24 hours): Temp Pulse Resp BP Pulse Ox 98.2 F 64 20 100/60 95 08/28/17 16:32 08/29/17 08:35 08/28/17 16:32 08/29/17 10:15 08/28/17 16:32 - Medications Medications: Current Medications Apixaban (Eliquis) 2.5 mg PO Q12 JILLIAN PRN Reason: Protocol Last Admin: 08/29/17 10:15 Dose: 2.5 mg Aspirin (Ecotrin) 81 mg PO DAILY JILLIAN PRN Reason: Protocol Last Admin: 08/29/17 10:14 Dose: Not Given Atorvastatin Calcium (Lipitor) 10 mg PO DIN JILLIAN PRN Reason: Protocol Last Admin: 08/28/17 17:20 Dose: 10 mg Bacitracin (Bacitracin) 1 gm TOP BID JILLIAN PRN Reason: Protocol Last Admin: 08/29/17 10:09 Dose: 1 applic Diphenhydramine HCl (Benadryl) 50 mg PO Q8 PRN PRN Reason: Itching / Pruritus Last Admin: 08/28/17 05:40 Dose: 50 mg Furosemide (Lasix) 40 mg PO BID JILLIAN PRN Reason: Protocol Last Admin: 08/29/17 10:15 Dose: 40 mg Lactic Acid (Lac-Hydrin 12% Cream (140 G)) 0 ea TOP BID JILLIAN Last Admin: 08/29/17 10:15 Dose: 1 applic Levothyroxine Sodium (Synthroid) 112 mcg PO 0600 JILLIAN PRN Reason: Protocol Last Admin: 08/29/17 05:00 Dose: 112 mcg Loratadine (Claritin) 10 mg PO DAILY JILLIAN Last Admin: 08/29/17 10:14 Dose: 10 mg Metoprolol Succinate (Toprol Xl) 50 mg PO DAILY JILLIAN PRN Reason: Protocol Last Admin: 08/29/17 10:17 Dose: Not Given Nystatin/Triamcinolone Acetonide (Nystatin/Triamcinolone Cream) 1 ea TOP BID JILLIAN PRN Reason: Protocol Last Admin: 08/29/17 10:17 Dose: 1 unit Polyethylene Glycol (Miralax) 17 gm PO DAILY JILLIAN PRN Reason: Protocol Last Admin: 08/29/17 10:16 Dose: 17 gm Potassium Chloride (K-Dur 20 Meq Er Tab) 20 meq PO BRK JILLIAN PRN Reason: Protocol Last Admin: 08/29/17 08:34 Dose: 20 meq Pregabalin (Lyrica) 50 mg PO DAILY JILLIAN PRN Reason: Protocol Last Admin: 08/29/17 10:23 Dose: 50 mg - Labs Labs: 08/27/17 06:30 08/27/17 06:30 - Constitutional Appears: Well, Non-toxic, No Acute Distress - Extremities Exam Additional comments: Bilateral LE exam: VASC: DP/PT pulses are very faintly palpable b/l, Cap refill time: < 3 sec to all digits, Temp gradient: warm to cool from proximal to distal, Skin tension lines noted which shows resolved edema, +1 Pitting edema noted on the medial leg b/l DERM: Stage 1 pre-ulcerative lesion noted on right plantar heel with small fissure on the lateral aspect of the heel appears to be healed, wound measuring approximately 0.5 cm x 0.5 cm x 0.1 cm noted on the distal lateral aspect of the right knee - appears to be getting smaller in size, active serous drainage noted from the proximal wound, no erythema, no tunneling, no undermining, no interdigital maceration, no clinical suspicion of active infection NEURO: Protective sensation mildly diminished ORTHO: Pain on active and passive ROM at the ankle joint, no pain on palpation of the plantar lateral heel at the level of the fissure, no pain on palpation of the bilateral calf - Neurological Exam Neurological Exam: Alert, Awake, Oriented x3 - Psychiatric Exam Psychiatric exam: Normal Affect, Normal Mood Assessment and Plan - Assessment and Plan (Free Text) Assessment: 82 year old female patient with PMHx of hypertension, hyperlipidemia, COPD, CHF , A-Fib, hypothyroidism was evaluated for resolving cellulitis secondary to right knee wound Plan: Patient seen and evaluated with attending Dr. Cavanaugh Labs, vitals and charts reviewed - afebrile, no leukocytosis X-rays of the right foot and ankle - no acute chris pathology noted Venous duplex ordered - No evidence of DVT Arterial duplex ordered - Demonstrates calcified vessels with possible aortoilliac disease and left SFA occlusive disease. ARABELLA on R 1.87 and 1.64 on the left Wounds cleaned with sterile saline and dressing applied using maxorb, optifoam on the leg. PANCHO bandage applied up to the knee Multipodus boots - Patient to wear boots while in bed at all times Podiatry will follow patient while in-house <Viki Cavanaugh - Last Filed: 09/02/17 15:28> Objective - Vital Signs/Intake and Output Vital Signs (last 24 hours): Temp Pulse Resp BP Pulse Ox 97.8 F 55 L 20 131/51 L 95 09/02/17 10:00 09/02/17 10:00 09/02/17 10:00 09/02/17 10:00 09/02/17 10:00 - Labs Labs: 08/30/17 06:30 08/30/17 06:30 Attending/Attestation - Attestation I have personally seen and examined this patient.: Yes I have fully participated in the care of the patient.: Yes I have reviewed all pertinent clinical information, including history, physical exam and plan: Yes
--- NOTE | 2017-08-30 01:35 | PN ---
DATE: 08/29/2017 SUBJECTIVE: The patient has no complaints of any chest pain. No shortness of breath. No headaches. PHYSICAL EXAMINATION: VITAL SIGNS: Temperature is 98.2, pulse 51, blood pressure 95/57, respirations 20. GENERAL: The patient is lying in bed, flat, comfortable. HEENT: No oral lesion. Anicteric sclerae. Moist mucosa. NECK: No JVD, adenopathy, or thyromegaly. CARDIOVASCULAR: S1 and S2, regular. No murmurs, rubs, or gallops. LUNGS: Clear to auscultation bilaterally. No wheeze, rales, or rhonchi. ABDOMEN: Bowel sounds are positive, soft, nontender and nondistended. EXTREMITIES: No cyanosis, clubbing or edema. LABORATORY DATA: White count of 5.8, hemoglobin 10.4. Potassium is 3.8. ASSESSMENT: 1. Hyperbilirubinemia secondary to access from aortic valve. 2. 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 3. Atrial fibrillation, on Coumadin. 4. Dyslipidemia. 5. Restless legs syndrome. 6. Obesity with a body mass index of 42. 7. Fatty liver. 8. A 7 mm common bile duct, status post cholecystectomy. 9. Chronic kidney disease stage 3. PLAN: The patient is current comfortable. She is getting physical therapy. She is on Benadryl as needed. She is on Eliquis for her atrial fibrillation. She is receiving Lasix twice a day for her edema. She is on Lipitor for dyslipidemia. She is going to continue the Lyrica for . She is on Synthroid for hypothyroidism. She is on a heart-healthy diet. We will continue with her current medications. We will repeat her blood work. Her last LFTs are elevated. Jose Eduardo Hamilton MD
[2017-08-30] MEDS: Levothyroxine 112 MCG TAB PO SCH (05:08)
[2017-08-30 07:29] LABS: HEMOGLOBIN 10.3 g/dL (12.0-16.0); MEAN CELL VOLUME 100.3 fl (80.0-105.0); MEAN CORPUSCULAR HEMOGLOBIN 30.4 pg (25.0-35.0); MEAN CORPUSCULAR HGB CONC 30.3 g/dl (31.0-37.0); MEAN PLATELET VOLUME 12.4 fl (7.0-11.0); RBC 3.39 10^6/uL (3.5-6.1); RED CELL DISTRIBUTION WIDTH 16.6 % (11.5-14.5); WHITE BLOOD COUNT 10.7 10^3/ul (4.5-11.0)
[2017-08-30 08:03] LABS: ALBUMIN 2.8 g/dL (3.0-4.8); CALCIUM 9.5 mg/dL (8.4-10.5)
[2017-08-30] MEDS: Potassium Chloride 20 mEq ER Tab PO SCH (08:14)
--- NOTE | 2017-08-30 10:17 | CP.PCM.PN ---
Subjective - Date & Time of Evaluation Date of Evaluation: 08/30/17 Time of Evaluation: 09:10 - Subjective Subjective: S&E at bedside,no new complaints. Denies N/V, abdominal pain. No c/o diarrhea or overt GI bleeding. LFT improving. Objective - Vital Signs/Intake and Output Vital Signs (last 24 hours): Temp Pulse Resp BP Pulse Ox 98.2 F 51 L 20 95/57 L 91 L 08/29/17 16:00 08/29/17 16:00 08/29/17 16:00 08/29/17 18:25 08/29/17 16:00 - Medications Medications: Current Medications Apixaban (Eliquis) 2.5 mg PO Q12 JILLIAN PRN Reason: Protocol Last Admin: 08/29/17 21:56 Dose: 2.5 mg Aspirin (Ecotrin) 81 mg PO DAILY JILLIAN PRN Reason: Protocol Last Admin: 08/29/17 10:14 Dose: Not Given Atorvastatin Calcium (Lipitor) 10 mg PO DIN JILLIAN PRN Reason: Protocol Last Admin: 08/29/17 18:25 Dose: 10 mg Bacitracin (Bacitracin) 1 gm TOP BID JILLIAN PRN Reason: Protocol Last Admin: 08/29/17 18:24 Dose: 1 applic Diphenhydramine HCl (Benadryl) 50 mg PO Q8 PRN PRN Reason: Itching / Pruritus Last Admin: 08/30/17 00:06 Dose: 50 mg Furosemide (Lasix) 40 mg PO BID JILLIAN PRN Reason: Protocol Last Admin: 08/29/17 18:25 Dose: Not Given Lactic Acid (Lac-Hydrin 12% Cream (140 G)) 0 ea TOP BID JILLIAN Last Admin: 08/29/17 18:24 Dose: 1 applic Levothyroxine Sodium (Synthroid) 112 mcg PO 0600 JILLIAN PRN Reason: Protocol Last Admin: 08/30/17 05:08 Dose: 112 mcg Loratadine (Claritin) 10 mg PO DAILY JILLIAN Last Admin: 08/29/17 10:14 Dose: 10 mg Metoprolol Succinate (Toprol Xl) 50 mg PO DAILY JILLIAN PRN Reason: Protocol Last Admin: 08/29/17 10:17 Dose: Not Given Nystatin/Triamcinolone Acetonide (Nystatin/Triamcinolone Cream) 1 ea TOP BID JILLIAN PRN Reason: Protocol Last Admin: 02/14/18 18:25 Dose: 1 unit Polyethylene Glycol (Miralax) 17 gm PO DAILY JILLIAN PRN Reason: Protocol Last Admin: 08/29/17 10:16 Dose: 17 gm Potassium Chloride (K-Dur 20 Meq Er Tab) 20 meq PO BRK JILLIAN PRN Reason: Protocol Last Admin: 08/30/17 08:14 Dose: 20 meq Pregabalin (Lyrica) 50 mg PO DAILY JILLIAN PRN Reason: Protocol Last Admin: 08/29/17 10:23 Dose: 50 mg - Labs Labs: 08/30/17 06:30 08/30/17 06:30 - Constitutional Appears: No Acute Distress - Eye Exam Eye Exam: Normal appearance. absent: Scleral icterus - ENT Exam ENT Exam: Mucous Membranes Moist - Respiratory Exam Respiratory Exam: NORMAL BREATHING PATTERN. absent: Respiratory Distress - Cardiovascular Exam Cardiovascular Exam: +S1, +S2 - GI/Abdominal Exam GI & Abdominal Exam: Soft, Normal Bowel Sounds. absent: Guarding, Tenderness, Organomegaly, Rebound - Extremities Exam Extremities Exam: absent: Calf Tenderness - Neurological Exam Neurological Exam: Alert, Awake, Oriented x3 - Skin Skin Exam: Dry, Warm Assessment and Plan - Assessment and Plan (Free Text) Assessment: ASSESSMENT: Improving Hyperbilirubinemia, hemolysis Aortic Valve replacement Anemia H/O cholecytectomy, CBD 7mm Atrial Fibrillation, on Eliquis Fatty liver Diabetes mellitus Obesity PLAN: monitor LFT, H/H on Miralax daily on Eliquis/Aspirin hematology FU Seen and discussed w/ Dr. Keller.
[2017-08-30] MEDS: Ammonium Lactate 12% Cream (140 g) TOP SCH ×2 (10:46→17:10)
[2017-08-30] MEDS: Bacitracin Ointment 30 GM TUBE TOP SCH ×2 (10:46→17:09)
[2017-08-30] MEDS: Nystatin-Triamcinolone Cream(30 gm) TOP SCH ×2 (10:47→17:12)
[2017-08-30] MEDS: POLYETHYLENE GLYCOL 3350 17 GM/Dose PACKET PO SCH (10:47)
[2017-08-30] MEDS: Metoprolol Succinate 50 mg XL Tab PO SCH (10:47)
--- NOTE | 2017-08-30 12:49 | CP.PCM.PN ---
<Rajendra Fu - Last Filed: 08/30/17 15:32> Subjective - Date & Time of Evaluation Date of Evaluation: 08/30/17 Time of Evaluation: 12:49 - Subjective Subjective: Podiatry Progress Note- Dr. Cavanaugh 82 year old female PMHx HTN, HLD, COPD, CHF, afib, hypothyroidism seen and evaluated in TCU for right knee wound. Patent OOB in chair, sleeping at time of visit. No acute events overnight. No complaints to knee wound. Denies N/V/F/D/C/ SOB/calf pain. Objective - Vital Signs/Intake and Output Vital Signs (last 24 hours): Temp Pulse Resp BP Pulse Ox 98.2 F 58 L 20 1113/62 H 91 L 08/29/17 16:00 08/30/17 10:47 08/29/17 16:00 08/30/17 10:47 08/29/17 16:00 - Medications Medications: Current Medications Apixaban (Eliquis) 2.5 mg PO Q12 JILLIAN PRN Reason: Protocol Last Admin: 08/30/17 10:45 Dose: 2.5 mg Aspirin (Ecotrin) 81 mg PO DAILY JILLIAN PRN Reason: Protocol Last Admin: 08/30/17 10:46 Dose: 81 mg Atorvastatin Calcium (Lipitor) 10 mg PO DIN JILLIAN PRN Reason: Protocol Last Admin: 08/29/17 18:25 Dose: 10 mg Bacitracin (Bacitracin) 1 gm TOP BID JILLIAN PRN Reason: Protocol Last Admin: 08/30/17 10:46 Dose: 1 applic Diphenhydramine HCl (Benadryl) 50 mg PO Q8 PRN PRN Reason: Itching / Pruritus Last Admin: 08/30/17 00:06 Dose: 50 mg Furosemide (Lasix) 40 mg PO BID JILLIAN PRN Reason: Protocol Last Admin: 08/30/17 10:46 Dose: 40 mg Lactic Acid (Lac-Hydrin 12% Cream (140 G)) 0 ea TOP BID JILLIAN Last Admin: 08/30/17 10:46 Dose: 1 applic Levothyroxine Sodium (Synthroid) 112 mcg PO 0600 JILLIAN PRN Reason: Protocol Last Admin: 08/30/17 05:08 Dose: 112 mcg Loratadine (Claritin) 10 mg PO DAILY JILLIAN Last Admin: 08/30/17 10:46 Dose: 10 mg Metoprolol Succinate (Toprol Xl) 50 mg PO DAILY JILLIAN PRN Reason: Protocol Last Admin: 08/30/17 10:47 Dose: Not Given Nystatin/Triamcinolone Acetonide (Nystatin/Triamcinolone Cream) 1 ea TOP BID JILLIAN PRN Reason: Protocol Last Admin: 08/30/17 10:47 Dose: 1 unit Polyethylene Glycol (Miralax) 17 gm PO DAILY JILLIAN PRN Reason: Protocol Last Admin: 08/30/17 10:47 Dose: 17 gm Potassium Chloride (K-Dur 20 Meq Er Tab) 20 meq PO BRK JILLIAN PRN Reason: Protocol Last Admin: 08/30/17 08:14 Dose: 20 meq Pregabalin (Lyrica) 50 mg PO DAILY JILLIAN PRN Reason: Protocol Last Admin: 08/30/17 10:50 Dose: 50 mg - Labs Labs: 08/30/17 06:30 08/30/17 06:30 - Constitutional Appears: Well, Non-toxic, No Acute Distress - Extremities Exam Additional comments: Bilateral LE exam: VASC: DP/PT pulses are very faintly palpable b/l, Cap refill time: < 3 sec to all digits, Temp gradient: warm to cool from proximal to distal, +1 pitting edema remains DERM: Wound measuring approximately 0.5 cm x 0.5 cm x 0.1 cm noted on the distal lateral aspect of the right knee - decreasing, moderate serous drainage noted from the proximal wound, no erythema, no tunneling, no undermining, no interdigital maceration, no clinical suspicion of infection noted. NEURO: Protective sensation mildly diminished ORTHO: No pain on palpation right knee - Psychiatric Exam Psychiatric exam: Normal Affect, Normal Mood Assessment and Plan - Assessment and Plan (Free Text) Assessment: 82 year old female patient with PMHx of hypertension, hyperlipidemia, COPD, CHF , A-Fib, hypothyroidism was evaluated for resolving cellulitis secondary to right knee wound Plan: Patient seen and evaluated Discussed with attending, Dr. Cavanaugh Afebrile, WBC 10.7 X-rays of the right foot and ankle: no acute bony pathology noted Venous duplex: No evidence of DVT Arterial duplex: Calcified vessels with possible aortoilliac disease and left SFA occlusive disease. ARABELLA on R 1.87 and 1.64 on the left Wounds cleaned with sterile saline and dressing applied using maxorb, optifoam on the leg. Multipodus boots - Patient to wear boots while in bed at all times Podiatry will follow patient while in-house <Viki Cavanaugh - Last Filed: 09/02/17 15:31> Objective - Vital Signs/Intake and Output Vital Signs (last 24 hours): Temp Pulse Resp BP Pulse Ox 97.8 F 55 L 20 131/51 L 95 09/02/17 10:00 09/02/17 10:00 09/02/17 10:00 09/02/17 10:00 09/02/17 10:00 - Labs Labs: 08/30/17 06:30 08/30/17 06:30 Attending/Attestation - Attestation I have personally seen and examined this patient.: Yes I have fully participated in the care of the patient.: Yes I have reviewed all pertinent clinical information, including history, physical exam and plan: Yes
[2017-08-31] MEDS: Levothyroxine 112 MCG TAB PO SCH (05:19)
[2017-08-31] MEDS: Potassium Chloride 20 mEq ER Tab PO SCH (07:54)
[2017-08-31] MEDS: Metoprolol Succinate 50 mg XL Tab PO SCH (07:55)
--- NOTE | 2017-08-31 09:05 | PN ---
DATE: SUBJECTIVE: The patient has no complaints of any chest pain. No shortness of breath. No headaches. She is comfortable. She says she is working with physical therapy. PHYSICAL EXAMINATION VITAL SIGNS: Temperature is 98.4, pulse of 50, blood pressure is 107/60, respirations 20. GENERAL: The patient is lying in bed, flat, comfortable. HEENT: No oral lesion. Anicteric sclerae. Moist mucosa. NECK: No JVD, adenopathy, or thyromegaly. CARDIOVASCULAR: S1 and S2, regular. No murmurs, rubs, or gallops. LUNGS: Clear to auscultation bilaterally. No wheeze, rales, or rhonchi. ABDOMEN: Bowel sounds are positive, soft, nontender and nondistended. EXTREMITIES: no cyanosis, clubbing or edema. LABORATORY DATA: White count of 10.7, hemoglobin of 10.3, creatinine is 1.2. ASSESSMENT: 1. 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 3. Atrial fibrillation, on Coumadin. 4. Dyslipidemia. 5. Restless leg syndrome. 6. Obesity with a body mass index of 42. 7. Fatty liver. 8. A 7-mm common bile duct, status post cholecystectomy. 9. Chronic kidney disease, stage III. PLAN: The patient is currently comfortable. She is on Benadryl for pruritus. The patient is on aspirin. She is going to continue with apixaban for her atrial fibrillation. She is receiving Lasix twice a day. She is on Lipitor for dyslipidemia. She is on MiraLax for constipation. She is on Synthroid for hypothyroidism. She is on a heart healthy diet. She is doing well with physical therapy, we will continue. Jose Eduardo Hamilton MD
[2017-08-31] MEDS: Bacitracin Ointment 30 GM TUBE TOP SCH ×2 (09:36→17:04)
[2017-08-31] MEDS: Ammonium Lactate 12% Cream (140 g) TOP SCH ×2 (09:38→17:04)
[2017-08-31] MEDS: Nystatin-Triamcinolone Cream(30 gm) TOP SCH ×2 (09:39→17:05)
[2017-08-31] MEDS: POLYETHYLENE GLYCOL 3350 17 GM/Dose PACKET PO SCH (09:39)
--- NOTE | 2017-08-31 10:26 | CP.PCM.PN ---
<Rajendra Fu - Last Filed: 08/31/17 14:05> Subjective - Date & Time of Evaluation Date of Evaluation: 08/31/17 Time of Evaluation: 10:26 - Subjective Subjective: Podiatry Progress Note- Dr. Cavanaugh 82 year old female PMHx HTN, HLD, COPD, CHF, afib, hypothyroidism seen and evaluated in TCU for right knee wound. Patent OOB in chair with legs not elevated. No acute events overnight. Dressing to right knee not present. No complaints to knee wound. Denies N/V/F/D/C/SOB/calf pain. Objective - Vital Signs/Intake and Output Vital Signs (last 24 hours): Temp Pulse Resp BP Pulse Ox 98.4 F 61 20 106/71 93 L 08/30/17 17:38 08/31/17 07:55 08/30/17 17:38 08/31/17 09:38 08/30/17 17:38 - Medications Medications: Current Medications Apixaban (Eliquis) 2.5 mg PO Q12 JILLIAN PRN Reason: Protocol Last Admin: 08/31/17 09:38 Dose: 2.5 mg Aspirin (Ecotrin) 81 mg PO DAILY JILLIAN PRN Reason: Protocol Last Admin: 08/31/17 09:37 Dose: 81 mg Atorvastatin Calcium (Lipitor) 10 mg PO DIN JILLIAN PRN Reason: Protocol Last Admin: 08/30/17 17:10 Dose: 10 mg Bacitracin (Bacitracin) 1 gm TOP BID JILLIAN PRN Reason: Protocol Last Admin: 08/31/17 09:36 Dose: 1 applic Diphenhydramine HCl (Benadryl) 50 mg PO Q8 PRN PRN Reason: Itching / Pruritus Last Admin: 08/30/17 00:06 Dose: 50 mg Furosemide (Lasix) 40 mg PO BID JILLIAN PRN Reason: Protocol Last Admin: 08/31/17 09:38 Dose: 40 mg Lactic Acid (Lac-Hydrin 12% Cream (140 G)) 0 ea TOP BID JILLIAN Last Admin: 08/31/17 09:38 Dose: 1 applic Levothyroxine Sodium (Synthroid) 112 mcg PO 0600 JILLIAN PRN Reason: Protocol Last Admin: 08/31/17 05:19 Dose: 112 mcg Loratadine (Claritin) 10 mg PO DAILY JILLIAN Last Admin: 08/31/17 09:37 Dose: 10 mg Metoprolol Succinate (Toprol Xl) 50 mg PO 0800 JILLIAN PRN Reason: Protocol Nystatin/Triamcinolone Acetonide (Nystatin/Triamcinolone Cream) 1 ea TOP BID JILLIAN PRN Reason: Protocol Last Admin: 08/31/17 09:39 Dose: 1 unit Polyethylene Glycol (Miralax) 17 gm PO DAILY JILLIAN PRN Reason: Protocol Last Admin: 08/31/17 09:39 Dose: 17 gm Potassium Chloride (K-Dur 20 Meq Er Tab) 20 meq PO BRK JILLIAN PRN Reason: Protocol Last Admin: 08/31/17 07:54 Dose: 20 meq Pregabalin (Lyrica) 50 mg PO DAILY JILLIAN PRN Reason: Protocol Last Admin: 08/31/17 09:41 Dose: 50 mg - Labs Labs: 08/30/17 06:30 08/30/17 06:30 - Constitutional Appears: Well, Non-toxic, No Acute Distress - Extremities Exam Additional comments: Bilateral LE exam: VASC: DP/PT pulses are very faintly palpable b/l, Cap refill time: < 3 sec to all digits, Temp gradient: warm to cool from proximal to distal, +2 pitting edema remains to entire lower extremities bilaterally except from midshaft of tibia distally. DERM: Wound measuring approximately 0.5 cm x 0.5 cm x 0.1 cm noted on the distal lateral aspect of the right knee - moderate serous lymphatic drainage noted from the proximal wound, no erythema, no tunneling, no undermining, no interdigital maceration, no clinical suspicion of infection noted. NEURO: Protective sensation mildly diminished ORTHO: No pain on palpation right knee - Neurological Exam Neurological Exam: Alert, Awake, Oriented x3 - Psychiatric Exam Psychiatric exam: Normal Affect, Normal Mood Assessment and Plan - Assessment and Plan (Free Text) Assessment: 82 year old female patient with PMHx of hypertension, hyperlipidemia, COPD, CHF , A-Fib, hypothyroidism was evaluated for resolving cellulitis secondary to right knee wound Plan: Patient seen and evaluated with attending, Dr. Cavanaugh X-rays of the right foot and ankle: no acute bony pathology noted Venous duplex: No evidence of DVT Arterial duplex: Calcified vessels with possible aortoilliac disease and left SFA occlusive disease. ARABELLA on R 1.87 and 1.64 on the left Continue local wound care - sterile saline, maxsorb, optifoam to right knee Continue multipodus boots - Patient to wear boots while in bed at all times Patient must keep legs elevated when OOB in chair to prevent further swelling Podiatry will continue to follow while in house <Viki Cavanaugh - Last Filed: 09/02/17 15:33> Objective - Vital Signs/Intake and Output Vital Signs (last 24 hours): Temp Pulse Resp BP Pulse Ox 97.8 F 55 L 20 131/51 L 95 09/02/17 10:00 09/02/17 10:00 09/02/17 10:00 09/02/17 10:00 09/02/17 10:00 - Labs Labs: 08/30/17 06:30 08/30/17 06:30 Attending/Attestation - Attestation I have personally seen and examined this patient.: Yes I have fully participated in the care of the patient.: Yes I have reviewed all pertinent clinical information, including history, physical exam and plan: Yes
[2017-09-01] MEDS: Levothyroxine 112 MCG TAB PO SCH (06:03)
[2017-09-01] MEDS: Potassium Chloride 20 mEq ER Tab PO SCH (08:20)
[2017-09-01] MEDS: Metoprolol Succinate 50 mg XL Tab PO SCH (08:21)
[2017-09-01] MEDS: POLYETHYLENE GLYCOL 3350 17 GM/Dose PACKET PO SCH ×2 (10:55→11:00)
[2017-09-01] MEDS: Nystatin-Triamcinolone Cream(30 gm) TOP SCH ×2 (10:56→17:54)
[2017-09-01] MEDS: Bacitracin Ointment 30 GM TUBE TOP SCH ×2 (10:56→17:54)
[2017-09-01] MEDS: Ammonium Lactate 12% Cream (140 g) TOP SCH ×2 (10:57→17:54)
--- NOTE | 2017-09-01 11:13 | CP.PCM.PN ---
Subjective - Date & Time of Evaluation Date of Evaluation: 09/01/17 Time of Evaluation: 11:13 - Subjective Subjective: Podiatry Progress Note- Dr. Cavanaugh 82 year old female PMHx HTN, HLD, COPD, CHF, afib, hypothyroidism seen and evaluated in TCU for right knee wound. Patent OOB in chair with legs not elevated currently, however patient states she otherwise has them elevated in recliner chair. No acute events overnight. Dressing to right knee present. No complaints to knee wound. Denies N/V/F/D/C/SOB/calf pain. Objective - Vital Signs/Intake and Output Vital Signs (last 24 hours): Temp Pulse Resp BP Pulse Ox 98.3 F 47 L 18 110/64 95 08/31/17 16:00 08/31/17 16:00 08/31/17 16:00 09/01/17 10:55 08/31/17 16:00 - Medications Medications: Current Medications Apixaban (Eliquis) 2.5 mg PO Q12 JILLIAN PRN Reason: Protocol Last Admin: 09/01/17 10:57 Dose: 2.5 mg Aspirin (Ecotrin) 81 mg PO 0800 JILLIAN PRN Reason: Protocol Last Admin: 09/01/17 08:20 Dose: 81 mg Atorvastatin Calcium (Lipitor) 10 mg PO DIN JILLIAN PRN Reason: Protocol Last Admin: 08/31/17 17:05 Dose: 10 mg Bacitracin (Bacitracin) 1 gm TOP BID JILLIAN PRN Reason: Protocol Last Admin: 09/01/17 10:56 Dose: 1 applic Diphenhydramine HCl (Benadryl) 50 mg PO Q8 PRN PRN Reason: Itching / Pruritus Last Admin: 09/01/17 10:57 Dose: 50 mg Furosemide (Lasix) 40 mg PO BID JILLIAN PRN Reason: Protocol Last Admin: 09/01/17 10:55 Dose: 40 mg Lactic Acid (Lac-Hydrin 12% Cream (140 G)) 0 ea TOP BID JILLIAN Last Admin: 09/01/17 10:57 Dose: 1 applic Levothyroxine Sodium (Synthroid) 112 mcg PO 0600 JILLIAN PRN Reason: Protocol Last Admin: 09/01/17 06:03 Dose: 112 mcg Loratadine (Claritin) 10 mg PO DAILY JILLIAN Last Admin: 09/01/17 10:57 Dose: 10 mg Metoprolol Succinate (Toprol Xl) 50 mg PO 0800 JILLIAN PRN Reason: Protocol Last Admin: 09/01/17 08:21 Dose: 50 mg Nystatin/Triamcinolone Acetonide (Nystatin/Triamcinolone Cream) 1 ea TOP BID JILLIAN PRN Reason: Protocol Last Admin: 09/01/17 10:56 Dose: 1 applic Polyethylene Glycol (Miralax) 17 gm PO DAILY JILLIAN PRN Reason: Protocol Last Admin: 09/01/17 10:55 Dose: Not Given Potassium Chloride (K-Dur 20 Meq Er Tab) 20 meq PO BRK JILLIAN PRN Reason: Protocol Last Admin: 09/01/17 08:20 Dose: 20 meq Pregabalin (Lyrica) 50 mg PO DAILY JILLIAN PRN Reason: Protocol Last Admin: 09/01/17 10:54 Dose: 50 mg - Labs Labs: 08/30/17 06:30 08/30/17 06:30 - Constitutional Appears: Well, Non-toxic, No Acute Distress - Extremities Exam Additional comments: Bilateral LE exam: VASC: DP/PT pulses are very faintly palpable b/l, Cap refill time: < 3 sec to all digits, Temp gradient: warm to cool from proximal to distal, +2 pitting edema remains to entire lower extremities bilaterally except from midshaft of tibia distally. DERM: Wound measuring approximately 0.5 cm x 0.5 cm x 0.1 cm noted on the distal lateral aspect of the right knee - moderate serous lymphatic drainage noted from the proximal wound, no erythema, no tunneling, no undermining, no interdigital maceration, no clinical suspicion of infection noted. NEURO: Protective sensation mildly diminished ORTHO: No pain on palpation right knee - Neurological Exam Neurological Exam: Alert, Awake, Oriented x3 - Psychiatric Exam Psychiatric exam: Normal Affect, Normal Mood Assessment and Plan - Assessment and Plan (Free Text) Assessment: 82 year old female patient with PMHx of hypertension, hyperlipidemia, COPD, CHF , A-Fib, hypothyroidism was evaluated for resolving cellulitis secondary to right knee wound Plan: Patient seen and evaluated Discussed with attending, Dr. Cavanaugh X-rays of the right foot and ankle: no acute bony pathology noted Venous duplex: No evidence of DVT Arterial duplex: Calcified vessels with possible aortoilliac disease and left SFA occlusive disease. ARABELLA on R 1.87 and 1.64 on the left Continue local wound care - sterile saline, maxsorb, optifoam to right knee Continue multipodus boots - Patient to wear boots while in bed at all times Patient must keep legs elevated when OOB in chair to prevent further swelling Podiatry will continue to follow while in house
[2017-09-01 14:46] VITALS: RESP 20
--- NOTE | 2017-09-02 00:38 | PN ---
DATE: SUBJECTIVE: The patient is 82 years old, seen and examined, sitting in chair, seems to be comfortable. No shortness of breath on walking. She said breathing is definitively better as compared to when she came in. Leg swelling has improved. PHYSICAL EXAMINATION: VITAL SIGNS: She is afebrile, pulse 68, respirations 20, blood pressure 110/64. LUNGS: Bilateral diffusely decreased breath sounds. HEART: S1 and S2 audible. ABDOMEN: Soft, obese, nontender. No rebound. No guarding. NEUROLOGIC: She is awake and alert, able to communicate. EXTREMITIES: Bilateral legs, resolving erythema and +1 edema and she has ulcer on legs, seems to be granulating. LABORATORY DATA: Sodium 138, potassium 4.0, chloride 102, CO2 of 23, BUN 29, creatinine 1.2, blood sugar of 146. ASSESSMENT AND PLAN: 1. Morbid obesity. 2. Congestive heart failure. 3. Bilateral edema. 4. Anemia. 5. Chronic atrial fibrillation, on Coumadin. 6. Restless leg syndrome. 7. Morbid obesity. 8. Fatty liver. 9. Chronic kidney disease. Presently patient is on diuretics. Her leg ulcers are . She is on aspirin. She is on Eliquis. Follow up her electrolyte in a.m.. She is getting Lyrica and levothyroxine. Discharge plan for tomorrow. Chandrika Robin MD
--- NOTE | 2017-09-02 03:58 | PN ---
DATE: 09/01/2017 SUBJECTIVE: This patient was seen and evaluated earlier today. The patient is comfortable, not in acute distress, tolerating the diet. The patient did not have any bowel movements, constipated, did receive MiraLax now. PHYSICAL EXAMINATION: VITAL SIGNS: Temperature is 97.4, blood pressure is 110/64, pulse 68, respirations 20, O2 saturation 95. HEENT: The patient is jaundiced, atraumatic. NECK: Supple. HEART: S1 and S2 heard. LUNGS: Bilateral air entry present. ABDOMEN: Soft, no tenderness. LABORATORY DATA: There are no recent labs. IMPRESSION: 1. 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 2. History of atrial fibrillation, on Coumadin. 3. Morbid obesity. 4. Congestive heart failure. 5. Pulmonary hypertension. The patient did have an ultrasound done, which showed normal common bile duct, status post cholecystectomy. I would recommend close followup with the LFTs and we will continue the MiraLax for constipation. Thank you very much for allowing me to participate in the care of the patient. Fouzia Keller MD
[2017-09-02] MEDS: Levothyroxine 112 MCG TAB PO SCH (05:20)
[2017-09-02] MEDS: Potassium Chloride 20 mEq ER Tab PO SCH (08:41)
[2017-09-02] MEDS: Metoprolol Succinate 50 mg XL Tab PO SCH (08:43)
[2017-09-02] MEDS: Ammonium Lactate 12% Cream (140 g) TOP SCH (09:47)
[2017-09-02] MEDS: Bacitracin Ointment 30 GM TUBE TOP SCH (09:48)
[2017-09-02] MEDS: POLYETHYLENE GLYCOL 3350 17 GM/Dose PACKET PO SCH (09:50)
[2017-09-02] MEDS: Nystatin-Triamcinolone Cream(30 gm) TOP SCH (09:50)
[2017-09-02 09:53] VITALS: BP 131/51
--- NOTE | 2017-09-02 11:13 | CP.PCM.PN ---
Subjective - Date & Time of Evaluation Date of Evaluation: 09/02/17 Time of Evaluation: 11:13 - Subjective Subjective: Podiatry Progress Note- Dr. Cavanaugh 82 year old female PMHx HTN, HLD, COPD, CHF, afib, hypothyroidism seen and evaluated in TCU for right knee wound. Patent OOB in wheelchair with legs not elevated. Family member present at bedside. No acute events overnight. Dressing to right knee present. No complaints to knee wound. Denies N/V/F/D/C/SOB/calf pain. Objective - Vital Signs/Intake and Output Vital Signs (last 24 hours): Temp Pulse Resp BP Pulse Ox 98.6 F 52 L 20 131/51 L 96 09/01/17 17:06 09/02/17 08:43 09/01/17 17:06 09/02/17 09:48 09/01/17 17:06 - Medications Medications: Current Medications Apixaban (Eliquis) 2.5 mg PO Q12 JILLIAN PRN Reason: Protocol Last Admin: 09/02/17 09:45 Dose: 2.5 mg Aspirin (Ecotrin) 81 mg PO 0800 JILLIAN PRN Reason: Protocol Last Admin: 09/02/17 08:41 Dose: 81 mg Atorvastatin Calcium (Lipitor) 10 mg PO DIN JILLIAN PRN Reason: Protocol Last Admin: 09/01/17 17:52 Dose: 10 mg Bacitracin (Bacitracin) 1 gm TOP BID JILLIAN PRN Reason: Protocol Last Admin: 09/02/17 09:48 Dose: 1 applic Diphenhydramine HCl (Benadryl) 50 mg PO Q8 PRN PRN Reason: Itching / Pruritus Last Admin: 09/01/17 10:57 Dose: 50 mg Furosemide (Lasix) 40 mg PO BID JILLIAN PRN Reason: Protocol Last Admin: 09/02/17 09:48 Dose: 40 mg Lactic Acid (Lac-Hydrin 12% Cream (140 G)) 0 ea TOP BID [facility] Last Admin: 09/02/17 09:47 Dose: 1 applic Levothyroxine Sodium (Synthroid) 112 mcg PO 0600 JILLIAN PRN Reason: Protocol Last Admin: 09/02/17 05:20 Dose: 112 mcg Loratadine (Claritin) 10 mg PO DAILY [facility] Last Admin: 09/02/17 09:44 Dose: 10 mg Metoprolol Succinate (Toprol Xl) 50 mg PO 0800 JILLIAN PRN Reason: Protocol Last Admin: 09/02/17 08:43 Dose: Not Given Nystatin/Triamcinolone Acetonide (Nystatin/Triamcinolone Cream) 1 ea TOP BID JILLIAN PRN Reason: Protocol Last Admin: 09/02/17 09:50 Dose: 1 applic Polyethylene Glycol (Miralax) 17 gm PO DAILY JILLIAN PRN Reason: Protocol Last Admin: 09/02/17 09:50 Dose: 17 gm Potassium Chloride (K-Dur 20 Meq Er Tab) 20 meq PO BRK JILLIAN PRN Reason: Protocol Last Admin: 09/02/17 08:41 Dose: 20 meq Pregabalin (Lyrica) 50 mg PO DAILY JILLIAN PRN Reason: Protocol Last Admin: 09/01/17 10:54 Dose: 50 mg - Labs Labs: 08/30/17 06:30 08/30/17 06:30 - Constitutional Appears: Well, Non-toxic, No Acute Distress - Extremities Exam Additional comments: Bilateral LE exam: VASC: DP/PT pulses are very faintly palpable b/l, Cap refill time: < 3 sec to all digits, Temp gradient: warm to cool from proximal to distal, +2 pitting edema remains to entire lower extremities bilaterally except from midshaft of tibia distally. DERM: Wound measuring approximately 0.5 cm x 0.5 cm x 0.1 cm noted on the distal lateral aspect of the right knee - moderate serous lymphatic drainage noted from the proximal wound, no erythema, no tunneling, no undermining, no interdigital maceration, no clinical suspicion of infection noted. NEURO: Protective sensation mildly diminished ORTHO: No pain on palpation right knee - Neurological Exam Neurological Exam: Alert, Awake, Oriented x3 - Psychiatric Exam Psychiatric exam: Normal Affect, Normal Mood Assessment and Plan - Assessment and Plan (Free Text) Assessment: 82 year old female patient with PMHx of hypertension, hyperlipidemia, COPD, CHF , A-Fib, hypothyroidism was evaluated for resolving cellulitis secondary to right knee wound Plan: Patient seen and evaluated Discussed with attending, Dr. Cavanaugh X-rays of the right foot and ankle: no acute bony pathology noted Venous duplex: No evidence of DVT Arterial duplex: Calcified vessels with possible aortoilliac disease and left SFA occlusive disease. ARABELLA on R 1.87 and 1.64 on the left Continue local wound care - sterile saline, maxsorb, optifoam to right knee Continue multipodus boots - Patient to wear boots while in bed at all times Patient must keep legs elevated when OOB in chair to prevent further swelling Podiatry will continue to follow while in house
[2017-09-02 12:57] VITALS: PULSE 55; TEMP 97.8; O2SAT 95
--- NOTE | 2017-09-02 20:37 | CP.PCM.PN ---
Subjective - Date & Time of Evaluation Date of Evaluation: 09/01/17 Time of Evaluation: 21:00 - Subjective Subjective: No acute events Objective - Vital Signs/Intake and Output Vital Signs (last 24 hours): Temp Pulse Resp BP Pulse Ox 97.8 F 55 L 20 131/51 L 95 09/02/17 10:00 09/02/17 10:00 09/02/17 10:00 09/02/17 10:00 09/02/17 10:00 - Labs Labs: 08/30/17 06:30 08/30/17 06:30 - Constitutional Appears: Well - Respiratory Exam Respiratory Exam: Clear to Ausculation Bilateral, NORMAL BREATHING PATTERN - Cardiovascular Exam Cardiovascular Exam: REGULAR RHYTHM, +S1, +S2. absent: Murmur - GI/Abdominal Exam GI & Abdominal Exam: Soft, Normal Bowel Sounds. absent: Tenderness - Extremities Exam Extremities Exam: Full ROM, Normal Capillary Refill, Normal Inspection. absent : Joint Swelling, Pedal Edema Assessment and Plan - Assessment and Plan (Free Text) Assessment: Ms. 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 Patient's cytopenias appear stable. But she will require outpatient follow-up can additionally evaluate as outpatient for acquired VWF deficiency which can also be see in patients with prosthetic aortic valves. Customarily prosthetic valves require anticoagulation with either coumadin or heparin. DOAC's such as apixaban are not FDA approved for treatment for prosthetic valves. Cristino Hastings MD Hematology Service
--- NOTE | 2017-09-03 05:32 | DS ---
HISTORY OF PRESENT ILLNESS: Patient is an 82-year-old seen and examined, who was admitted for leg swelling, admitted with shortness of breath, was diuresed and sent to TCU, got rehab, seems to be doing well. No chest pain. No shortness of breath. No nausea or vomiting. No diarrhea PHYSICAL EXAMINATION: VITAL SIGNS: She is afebrile, pulse 55, respiration 20, blood pressure 131/51. LUNGS: Bilateral good air flow. No rhonchi or crackles. HEART: S1, S2, audible. ABDOMEN: Soft, nontender, no rebound, no guarding. She is obese.. NEUROLOGIC: She is awake and alert, able to communicate. EXTREMETIES: Bilateral leg +1 edema. LABORATORY DATA: Blood sugar 146. ASSESSMENT AND PLAN: 1. Morbid obesity. 2. Congestive heart failure, [id number], systolic. 3. Bilateral leg edema, improved. 4. Chronic anemia. 5. Chronic atrial fibrillation. 6. History of fatty liver. 7. Chronic kidney disease. PLAN: Patient is currently hemodynamically stable. She will resume her medication. She will be on Lasix 40 mg twice a day. She will resume Lyrica. She is on metoprolol, levothyroxine, and Eliquis 2.5 mg twice a day. She will follow with her . Chandrika Robin MD
== END 2017-09-02 13:22 | disposition home or self-care (01) | DRG 291 ==
LOC: TRCU 16:37
PROVIDERS: ADMIT Internal Medicine Nephrology; ATTEND Internal Medicine Nephrology
PROC: F07Z9FZ Gait Training/Functional Ambulation Treatment using Assistive, Adaptive, Supportive or Protective Equipment (ICD-10-PCS; principal; 2017-08-26)
PROC: F07M6ZZ Therapeutic Exercise Treatment of Musculoskeletal System - Whole Body (ICD-10-PCS; 2017-08-26)
PROC: F08Z1ZZ Dressing Techniques Treatment (ICD-10-PCS; 2017-08-27)
PROC: F08Z2ZZ Grooming/Personal Hygiene Treatment (ICD-10-PCS; 2017-08-27)
DX: I13.0 Hypertensive heart and chronic kidney disease with heart failure and stage 1 through stage 4 chronic kidney disease, or unspecified chronic kidney disease (principal); I50.43 Acute on chronic combined systolic (congestive) and diastolic (congestive) heart failure; E11.22 Type 2 diabetes mellitus with diabetic chronic kidney disease; I27.20 Pulmonary hypertension, unspecified; E11.622 Type 2 diabetes mellitus with other skin ulcer; E66.01 Morbid (severe) obesity due to excess calories; I48.2 Chronic atrial fibrillation; L97.909 Non-pressure chronic ulcer of unspecified part of unspecified lower leg with unspecified severity; G25.81 Restless legs syndrome; L03.90 Cellulitis, unspecified; Z68.41 Body mass index [BMI] 40.0-44.9, adult; D64.9 Anemia, unspecified; E03.9 Hypothyroidism, unspecified; J44.9 Chronic obstructive pulmonary disease, unspecified; K59.00 Constipation, unspecified; K76.0 Fatty (change of) liver, not elsewhere classified; E78.00 Pure hypercholesterolemia, unspecified; E78.5 Hyperlipidemia, unspecified; N18.3 Chronic kidney disease, stage 3 (moderate); Z79.01 Long term (current) use of anticoagulants; Z79.82 Long term (current) use of aspirin; Z90.49 Acquired absence of other specified parts of digestive tract; Z95.2 Presence of prosthetic heart valve

== ENCOUNTER 2017-09-06 09:55 | Emergency (ER) | payer MEDICARE, OTHER ==
[2017-09-06 09:55] VITALS: BMI 47.7
--- NOTE | 2017-09-06 10:19 | ED PDOC ---
Arrival/HPI - General Chief Complaint: Altered Mental Status Time Seen by Provider: 09/06/17 10:07 Historian: EMS EM Caveat: Altered Mental Status - History of Present Illness Narrative History of Present Illness (Text): 09/06/17 10:25 Kaycee Day is an 82 year old female, whose past medical history includes hypertension, COPD, hyperthyroidism, and diabetes, who was brought in to the emergency department via EMS. HPI is currently limited due to AMS. Symptom Course: Unchanged Past Medical History - Provider Review Nursing Documentation Reviewed: Yes - Infectious Disease Hx of Infectious Diseases: None - Past Medical History Past Medical History: Non-Contributing - Cardiac Hx Cardiac Disorders: Yes (afib) Hx Hypertension: Yes - Pulmonary Hx Chronic Obstructive Pulmonary Disease (COPD): Yes - Neurological Hx Neurological Disorder: No - HEENT Hx HEENT Disorder: No - Renal Hx Renal Failure: Yes - Endocrine/Metabolic Hx Diabetes Mellitus Type 1: Yes Hx Hypothyroidism: Yes - Hematological/Oncological Hx Blood Disorders: No Other/Comment: Hx of sepsis - Integumentary Hx Dermatological Disorder: Yes - Musculoskeletal/Rheumatological Hx Arthritis: Yes - Gastrointestinal Hx Gastrointestinal Disorders: No - Genitourinary/Gynecological Hx Reproductive Disorders: No - Psychiatric Hx Psychophysiologic Disorder: No Hx Substance Use: No - Surgical History Hx Valve Replacement: Yes (Aortic) - Anesthesia Hx Anesthesia: Yes Hx Anesthesia Reactions: No Hx Malignant Hyperthermia: No Family/Social History - Physician Review Nursing Documentation Reviewed: Yes Family/Social History: Unknown Family HX Smoking Status: Never Smoked Hx Alcohol Use: No Hx Substance Use: No Allergies/Home Meds Allergies/Adverse Reactions: Allergies No Known Allergies Allergy (Verified 09/06/17 13:04) Home Medications: Home Meds Medication Instructions Recorded Confirmed Unobtainable 09/06/17 09/06/17 Review of Systems - Review of Systems Systems not reviewed;Unavailable: Altered Mental Status Physical Exam - Physical Exam Physical Exam Limitations: Altered Mental Status Vital Signs Temp Pulse Resp BP Pulse Ox 09/06/17 10:20 94.1 F L 90 20 167/114 H 54 L - Systems Exam Head: Present: Atraumatic, Normocephalic Respiratory/Chest: Present: Rhonchi (diffused). No: Clear to Auscultation, Good Air Exchange, Respiratory Distress, Accessory Muscle Use, Wheezes Lower Extremity: Present: Edema, Erythema. No: Normal Inspection Skin: Present: Warm, Dry. No: Rashes, Normal Color Medical Decision Making ED Course and Treatment: 09/06/17 Impression: 82 year old female who presents with AMS and has diffused rhonchi Plan: -- EKG -- Labs -- Urinalysis -- Ultrasound Duplex -- Albuterol, Duoneb, Solucortef, Ativan, Vanomycin, Zosyn, and Sodium Chloride -- Reassess and disposition Progress Notes: EKG: Ordered, reviewed, and independently interpreted the EKG. Rate : 88 BPM Rhythm : atrial fibrillation Interpretation : LAD. RBBB. T-wave abnormality. 09/06/17 11:[address] Stone, who is aware of plan and treatment. 09/06/17 11:20 Central line placement was done and more information can be seen under procedure note. Chest X-ray was order to confirm line placement. Pig Farmer in present and Dr. Hamilton was contacted and advised to contact Dr. Braswell, who is currently no available. Pig Farmer will speak to family members about patient being DNR. If patient is full code, she will be admitted to ICU under Dr. Webber. if patient is DNR/DNI then patient will be admitted to floor. 09/06/17 11:27 11:26: Code Sepsis was called. 09/06/17 EKG: Ordered, reviewed, and independently interpreted the EKG. Rate : 76 BPM Rhythm : atrial fibrillation Interpretation : LAD. RBBB. T-wave abnormality. 09/06/17 12:33 Dr. Billingsley spoke to Dr. Braswell, who recommends DNR/DNI status. He also spoke to son of patient, and was advised to speak to sister Nevin, who is a nurse is [place] # [phone]. They are all in agreement with Dr. Ralph for patient's DNR/DNI status. Pig Farmer put order in chart and Dr. Webber agrees to medical care. 09/06/17 13:26 Patient's time of : 13:26 09/06/17 14:14 The preliminary certificate was filled out on the eds website. The nurse spoke to the medical billing coordinator and organ donation. - Lab Interpretations Lab Results: 09/06/17 11:03 09/06/17 11:03 Lab Results 09/06/17 11:03: Sodium 136, Chloride 104, Potassium 4.9, Carbon Dioxide 12 L, Anion Gap 25 H, BUN 36 H, Creatinine 2.6 H, Est GFR ( Amer) 21, Est GFR ( Non-Af Amer) 18, Random Glucose 80, Calcium 9.2, Total Bilirubin 3.4 H, AST 67 H D, ALT 53, Alkaline Phosphatase 80, Lactate Dehydrogenase 980 H, Total Creatine Kinase 436 H, CK-MB (CK-2) 7.9 H, CK-MB (CK-2) % 1.8 L, Troponin I 1.01 H* D, NT-Pro-B Natriuret Pep [id number] H, Total Protein 4.7 L, Albumin 2.3 L, Globulin 2.4, Albumin/Globulin Ratio 0.9 L 09/06/17 11:03: PT 31.5 H, INR 2.68 H 09/06/17 11:03: WBC 4.6 D, RBC 3.81, Hgb 11.0 L, Hct 38.8, MCV 101.8, MCH 28.9 , MCHC 28.4 L, RDW 16.8 H, Plt Count 77 L, MPV 13.2 H, Gran % 71.9 H, Lymph % ( Auto) 23.4, [place] % (Auto) 3.3, Eos % (Auto) 0.7 L, Baso % (Auto) 0.7, Gran # 3.30, Lymph # (Auto) 1.1 L, [place] # (Auto) 0.2, Eos # (Auto) 0.0, Baso # (Auto) 0.03, ESR 5 09/06/17 11:00: pO2 39, VBG pH 7.01 L*, VBG pCO2 44.0, VBG HCO3 11.1 L, VBG Total CO2 12.5 L, VBG O2 Sat (Calc) 58.4, VBG Base Excess -19.7 L, VBG Potassium 5.0, Sodium 133.0, Chloride 99.0, Glucose 84, Lactate 13.4 H*, FiO2 21.0, Venous Blood Potassium 5.0 I have reviewed the lab results: Yes - RAD Interpretation Radiology Orders: 09/06/17 10:20 CHEST PORTABLE [RAD] Stat DUPLEX LOWER EXT ART BI LMTD [US] Stat Animal Husbandman: Radiologist - EKG Interpretation Interpreted by ED Physician: Yes Type: 12 lead EKG - Medication Orders Current Medication Orders: Discontinued Medications Albuterol Sulfate (Albuterol 0.083% Inhal Charmaine (2.5 Mg/3 Ml) Ud) 5 mg INH STAT STA Stop: 09/06/17 10:28 Last Admin: 09/06/17 12:23 Dose: 5 mg Albuterol/Ipratropium (Duoneb 3 Mg/0.5 Mg (3 Ml) Ud) 3 ml IH STAT STA Stop: 09/06/17 10:28 Last Admin: 09/06/17 11:45 Dose: 3 ml Hydrocortisone Sodium Succinate (Solu-Cortef) 100 mg IVP STAT STA Stop: 09/06/17 10:28 Last Admin: 09/06/17 11:38 Dose: 100 mg IVP Administration Document 09/06/17 11:38 CNR (Rec: 09/06/17 11:38 CNR [id number]) Charges for Administration # of IVP Administrations 1 Sodium Chloride (Sodium Chloride 0.9%) 500 mls @ 999 mls/hr IV .Q31M STA Stop: 09/06/17 10:58 Last Admin: 09/06/17 11:38 Dose: 999 mls/hr eMAR Start Stop Document 09/06/17 11:38 CNR (Rec: 09/06/17 11:38 CNR [email or web address]) Intravenous Solution Start Date 09/06/17 Start Time 11:00 End Date 09/06/17 End time 11:38 Total Infusion Time 38 Piperacillin Sod/Tazobactam Sod (Zosyn 3.375 In Ns 100ml) 100 mls @ 200 mls/hr IVPB STAT STA PRN Reason: Protocol Stop: 09/06/17 11:28 Last Admin: 09/06/17 11:37 Dose: 200 mls/hr eMAR Start Stop Document 09/06/17 11:37 CNR (Rec: 09/06/17 11:37 CNR [id number]) Intravenous Solution Start Date 09/06/17 Start Time 11:37 End Date 09/06/17 End time 12:07 Total Infusion Time 30 Vancomycin HCl (Vancomycin 1gm) 1 gm in 250 mls @ 167 mls/hr IVPB STAT STA PRN Reason: Protocol Stop: 09/06/17 12:30 Last Admin: 09/06/17 12:22 Dose: 167 mls/hr eMAR Start Stop Document 09/06/17 12:22 CNR (Rec: 09/06/17 12:23 CNR [id number]) Intravenous Solution Start Date 09/06/17 Start Time 12:23 End Date 09/06/17 End time 13:53 Total Infusion Time 90 Lorazepam (Ativan) 1 mg IVP ONCE ONE PRN Reason: Protocol Stop: 09/06/17 10:29 Last Admin: 09/06/17 10:36 Dose: 1 mg IVP Administration Document 09/06/17 10:36 CNR (Rec: 09/06/17 10:36 CNR [id number]) Charges for Administration # of IVP Administrations 1 - Procedure PROCEDURE NOTE (Text): 09/06/17 11:19 PROCEDURE: CENTRAL LINE PLACEMENT Performed by the emergency providerElder Time: 11:00 Consent: Discussion of the risks, benefits, and alternatives to the procedure, along with informed consent was precluded by the urgency of the procedure and the patient condition. Timeout: A timeout to verify the correct patient, procedure, and site was performed. Indication: right jugular Anesthesia: Local anesthesia: See MAR for details. Skin Preparation: Hand hygiene performed prior to central venous catheter insertion. Sterile field, sterile drape, sterile technique, and cap and gown were used. The area was cleansed with 2% Chlorhexidine. Location: right jugular Ultrasound guidance: YES Technique: The landmarks for the line placement were identified. The vessel was cannulated and a non-tunneled 7.0 Fr triple lumen was placed using the Seldinger technique. Successful placement: YES. Line sutured with silk and appropriate dressing applied Assessment: Good patency and blood return through all three lumens. The ports were appropriately flushed. See post procedure X-Ray interpretation. Post-procedure: Patient tolerated the procedure well with no immediate complications - PA / OUTSIDE SALES ACCOUNT EXECUTIVE / Resident Statement MD/DO has reviewed & agrees with the documentation as recorded. - Scribe Statement The provider has reviewed the documentation as recorded by the Jordy Schuler Provider Scribe Attestation: All medical record entries made by the Scribe were at my direction and personally dictated by me. I have reviewed the chart and agree that the record accurately reflects my personal performance of the history, physical exam, medical decision making, and the department course for this patient. I have also personally directed, reviewed, and agree with the discharge instructions and disposition. Disposition/Present on Arrival - Present on Arrival Any Indicators Present on Arrival: No History of DVT/PE: No History of Uncontrolled Diabetes: No Urinary Catheter: No History of Decub. Ulcer: No History Surgical Site Infection Following: None - Disposition Have Diagnosis and Disposition been Completed?: Yes Diagnosis: Septic shock, Tissue necrosis with gangrene in peripheral vascular disease, Lactic acidosis Disposition: HOSPITALIZED Disposition Time: 12:38 Patient Plan: Admission Patient Problems: Current Active Problems Problem Status Onset Septic shock Acute Tissue necrosis with gangrene in peripheral vascular disease Acute Lactic acidosis Acute Condition: CRITICAL
[2017-09-06] MEDS ORDERED: Albuterol 0.083% Inhal Sol (2.5 mg/3 mL) UD INH STA (10:27)
[2017-09-06] MEDS ORDERED: Albuterol-Ipratrop 3 mg / 0.5 (3 ml) UD IH STA (10:27)
[2017-09-06] MEDS ORDERED: Sodium Chloride 0.9% 500 ML IV STA (10:28)
[2017-09-06] MEDS ORDERED: Piperacillin/Tazobact 3.375 gm 100 ML IVPB STA (10:59)
[2017-09-06] MEDS ORDERED: Vancomycin 1gm in NS 250ml 1 GM/250 ML BAG IVPB STA (11:01)
[2017-09-06 11:14] LABS: VENOUS BLOOD GAS BASE EXCESS -19.7 mmol/L (0.0-2.0); VENOUS BLOOD GAS PO2 39 mm/Hg (30-55)
[2017-09-06 11:19] LABS: ALB/GLOB RATIO 0.9 (1.1-1.8); ALBUMIN 2.3 g/dL (3.0-4.8); CALCIUM 9.2 mg/dL (8.4-10.5)
[2017-09-06 11:21] LABS: BASO # 0.03 K/mm3 (0.0-2.0); BASO % 0.7 % (0.0-3.0); EOS % 0.7 % (1.5-5.0); GRAN # 3.3 (1.4-6.5); GRAN % 71.9 % (50.0-68.0); LYMPH # 1.1 (1.2-3.4); LYMPH % 23.4 % (22.0-35.0); MEAN CELL VOLUME 101.8 fl (80.0-105.0); MEAN CORPUSCULAR HEMOGLOBIN 28.9 pg (25.0-35.0); MEAN CORPUSCULAR HGB CONC 28.4 g/dl (31.0-37.0); MEAN PLATELET VOLUME 13.2 fl (7.0-11.0); MONO # 0.2 (0.1-0.6); MONO % 3.3 % (1.0-6.0); RBC 3.81 10^6/uL (3.5-6.1); RED CELL DISTRIBUTION WIDTH 16.8 % (11.5-14.5); WHITE BLOOD COUNT 4.6 10^3/ul (4.5-11.0)
[2017-09-06 11:22] LABS: VENOUS BLOOD PH 7.01 (7.32-7.43)
[2017-09-06 11:30] LABS: INR 2.68 (0.93-1.08); PROTHROMBIN TIME 31.5 SECONDS (9.4-12.5)
[2017-09-06 11:32] LABS: CK MB% 1.8 % (2.5-3.0); CK-MB 7.9 ng/mL (0.0-3.6); TROPONIN I 1.01 ng/mL
[2017-09-06 11:38] VITALS: TEMP 94.1
--- NOTE | 2017-09-06 12:01 | CP.PCM.CON ---
History of Present Illness - History of Present Illness History of Present Illness: CRITICAL CARE CONSULT NOTE HPI Patient is 82yo female with PMHx diastolic CHF, afib on Elliquis, hyperlipidemia , COPD, CHF, hypothyroidism, aortic valve replacement, presents from home with AMS and erythema of LLE. Hisotry is limited to the son who is at bedside and the ER staff. Pt became acutely altered, and had dveloped decrease sensation and increased erythema of LLE. In the ER, patient obtunded, altered, not following commands. Labs with acute renal failure, lactic/metabolic acidosis, ischemic LLE on exam. Central line placed by Dr Lev Billingsley. Dr Lev Billingsley spoke to Nevin Barb, , [phone] [facility] patients daughter/HCP, who informed the staff that she would not like any aggressive measures, and that the patient should be DNR/DNI, pain control with morphine, and no aggressive measures. Patient is to be admitted to the floor. PMHx as above PSHx as above Allergies NKDA Meds as per EMR ROS as above FHx NC Review of Systems - Review of Systems Review of Systems: as per HPI Past Patient History - Infectious Disease Hx of Infectious Diseases: None - Past Social History Smoking Status: Never Smoked - CARDIAC Hx Cardiac Disorders: Yes (afib) Hx Hypertension: Yes - PULMONARY Hx Chronic Obstructive Pulmonary Disease (COPD): Yes - NEUROLOGICAL Hx Neurological Disorder: No - HEENT Hx HEENT Problems: No - RENAL Hx Renal Failure: Yes - ENDOCRINE/METABOLIC Hx Diabetes Mellitus Type 1: Yes Hx Hypothyroidism: Yes - HEMATOLOGICAL/ONCOLOGICAL Hx Blood Disorders: No Other/Comment: Hx of sepsis - INTEGUMENTARY Hx Dermatological Problems: Yes - MUSCULOSKELETAL/RHEUMATOLOGICAL Hx Arthritis: Yes - GASTROINTESTINAL Hx Gastrointestinal Disorders: No - GENITOURINARY/GYNECOLOGICAL Hx Reproductive Disorders: No - PSYCHIATRIC Hx Psychophysiologic Disorder: No Hx Substance Use: No - SURGICAL HISTORY Hx Valve Replacement: Yes (Aortic) - ANESTHESIA Hx Anesthesia: Yes Hx Anesthesia Reactions: No Hx Malignant Hyperthermia: No Meds Allergies/Adverse Reactions: Allergies Allergy/AdvReac Type Severity Reaction Status Date / Time No Known Allergies Allergy Verified 09/06/17 10:06 - Medications Medications: Current Medications Vancomycin HCl (Vancomycin 1gm) 1 gm in 250 mls @ 167 mls/hr IVPB STAT STA PRN Reason: Protocol Stop: 09/06/17 12:30 Physical Exam - Constitutional Appears: In Acute Distress, Agitated, Confused - Head Exam Head Exam: NORMAL INSPECTION - Eye Exam Eye Exam: Normal appearance - ENT Exam ENT Exam: Mucous Membranes Dry - Respiratory Exam Respiratory Exam: Clear to Auscultation Bilateral, NORMAL BREATHING PATTERN - Cardiovascular Exam Cardiovascular Exam: Tachycardia, +S1, +S2 - GI/Abdominal Exam GI & Abdominal Exam: Normal Bowel Sounds, Soft - Extremities Exam Additional comments: RLE pedal pulses presents LLE pedal pulses absent (with doppler) erythematous cold LLE, ischemic - Neurological Exam Neurological exam: Altered Results - Vital Signs Recent Vital Signs: Last Vital Signs Temp 94.1 F L 09/06/17 10:20 Pulse 90 09/06/17 10:20 Resp 20 09/06/17 10:20 BP 167/114 H 09/06/17 10:20 Pulse Ox 54 L 09/06/17 10:20 - Labs Result Diagrams: 09/06/17 11:03 09/06/17 11:03 Labs: Laboratory Results - last 24 hr 09/06/17 09/06/17 09/06/17 11:00 11:03 11:03 WBC 4.6 D RBC 3.81 Hgb 11.0 L Hct 38.8 MCV 101.8 MCH 28.9 MCHC 28.4 L RDW 16.8 H Plt Count 77 L MPV 13.2 H Gran % 71.9 H Lymph % (Auto) 23.4 [place] % (Auto) 3.3 Eos % (Auto) 0.7 L Baso % (Auto) 0.7 Gran # 3.30 Lymph # (Auto) 1.1 L [place]christ # (Auto) 0.2 Eos # (Auto) 0.0 Baso # (Auto) 0.03 PT 31.5 H INR 2.68 H pO2 39 VBG pH 7.01 L* VBG pCO2 44.0 VBG HCO3 11.1 L VBG Total CO2 12.5 L VBG O2 Sat (Calc) 58.4 VBG Base Excess -19.7 L VBG Potassium 5.0 Sodium 133.0 Chloride 99.0 Glucose 84 Lactate 13.4 H* FiO2 21.0 Potassium Carbon Dioxide Anion Gap BUN Creatinine Est GFR ( Amer) Est GFR (Non-Af Amer) Random Glucose Calcium Total Bilirubin AST ALT Alkaline Phosphatase Lactate Dehydrogenase Total Creatine Kinase CK-MB (CK-2) CK-MB (CK-2) % Troponin I Total Protein Albumin Globulin Albumin/Globulin Ratio Venous Blood Potassium 5.0 09/06/17 11:03 WBC RBC Hgb Hct MCV MCH MCHC RDW Plt Count MPV Gran % Lymph % (Auto) [place] % (Auto) Eos % (Auto) Baso % (Auto) Gran # Lymph # (Auto) [place] # (Auto) Eos # (Auto) Baso # (Auto) PT INR pO2 VBG pH VBG pCO2 VBG HCO3 VBG Total CO2 VBG O2 Sat (Calc) VBG Base Excess VBG Potassium Sodium 136 Chloride 104 Glucose Lactate FiO2 Potassium 4.9 Carbon Dioxide 12 L Anion Gap 25 H BUN 36 H Creatinine 2.6 H Est GFR ( Amer) 21 Est GFR (Non-Af Amer) 18 Random Glucose 80 Calcium 9.2 Total Bilirubin 3.4 H AST 67 H D ALT 53 Alkaline Phosphatase 80 Lactate Dehydrogenase 980 H Total Creatine Kinase 436 H CK-MB (CK-2) 7.9 H CK-MB (CK-2) % 1.8 L Troponin I 1.01 H* D Total Protein 4.7 L Albumin 2.3 L Globulin 2.4 Albumin/Globulin Ratio 0.9 L Venous Blood Potassium Assessment & Plan - Assessment and Plan (Free Text) Assessment: 82yo female a/w ischemic LLE, septic shock, AMS, renal failure Ischemia of LLE Septic Shock AMS Renal failure Lactic/Metabolic Acidosis - currently hypotensive, central line placed by IR Dr Billingsley, receiving IVF bolus - Discussion with daughter, Nevin Day/HCP by Dr Billingsley, over the phone [phone], patient is to be DNR/DNI, no aggressive measures - Morphine, IVF, IV abx and Heparin OK - patient critically ill Recommend: - supp o2 as needed - pain control, morphine - IVF - IV heparin - NPO - Palliative care consult - IV abx
[2017-09-06 13:00] LABS: PH,URINE 5.5 (4.7-8.0); URINE BILIRUBIN NEGATIVE (NEGATIVE); URINE BLOOD NEGATIVE (NEGATIVE); URINE GLUCOSE (UA) NEGATIVE (NEGATIVE); URINE LEUKOCYTE ESTERASE MODERATE Leu/uL (NEGATIVE); URINE NITRATE NEGATIVE (NEGATIVE); URINE PROTEIN 30 mg/dL (<30 mg/dL); URINE UROBILINOGEN 0.2 E.U./dL (<1 E.U./dL)
[2017-09-06 13:02] LABS: URINE APPEARANCE SLIGHT-CLOUDY (CLEAR); URINE COLOR DARK YELLOW (YELLOW)
--- NOTE | 2017-09-06 13:05 | RAD ---
HISTORY: sepsis COMPARISON: 08/22/2017 FINDINGS: LUNGS: No active pulmonary disease. PLEURA: No significant pleural effusion identified, no pneumothorax apparent. CARDIOVASCULAR: Mild cardiomegaly. Mild vascular congestion OSSEOUS STRUCTURES: Sternal wires VISUALIZED UPPER ABDOMEN: Normal. OTHER FINDINGS: None. IMPRESSION: Right internal jugular catheter terminates in the upper right atrium. No pneumothorax
[2017-09-06 13:10] LABS: URINE EPITHELIAL CELLS 0 - 2 /hpf (0-5); URINE RBC NEGATIVE /hpf (0-2)
[2017-09-06 16:25] VITALS: BP 94/56; PULSE 132; RESP 29; O2SAT 88
--- NOTE | 2017-09-06 18:51 | CARD ---
APPROVED REPORT EKG Measurement Heart [id number] <Conclusion> Atrial fibrillation Left axis deviation Right bundle branch block T wave abnormality, consider lateral ischemia or digitalis effect Abnormal ECG
== END 2017-09-06 16:10 ==
LOC: ED 09:55 → ERH 12:34 → UNDOADMIN 12:34
DX: A41.9 Sepsis, unspecified organism (principal); R65.21 Severe sepsis with septic shock; E87.2 Acidosis; E11.52 Type 2 diabetes mellitus with diabetic peripheral angiopathy with gangrene; I96 Gangrene, not elsewhere classified; I12.0 Hypertensive chronic kidney disease with stage 5 chronic kidney disease or end stage renal disease; E11.22 Type 2 diabetes mellitus with diabetic chronic kidney disease; N18.6 End stage renal disease; I48.91 Unspecified atrial fibrillation; J44.9 Chronic obstructive pulmonary disease, unspecified; E03.9 Hypothyroidism, unspecified; E78.5 Hyperlipidemia, unspecified; Z95.2 Presence of prosthetic heart valve; Z79.01 Long term (current) use of anticoagulants; Z66 Do not resuscitate
CPT/HCPCS: 36556; 71045; 80053; 81001; 82550; 82553; 82803; 83615; 83880; 84145; 84484; 85025; 85610; 85651; 86140; 87040; 87086; 87181; 87205; 93005; 94640; 96361; 96365; 96367; 96375; 99285; J1720; J2060; J2543; J7040